=== PATIENT | male | born 1965 | race Caucasian/White ===

== ENCOUNTER 2020-06-06 10:23 | Outpatient (REF) | payer BC, SELFPAY | END 2020-06-06 10:24 | disposition home or self-care (01) | LOC: HO.LAB 10:23 | PROVIDERS: Visit Provider Nurse Practitioner Family | DX: Z20.828 Contact with and (suspected) exposure to other viral communicable diseases (principal); J32.9 Chronic sinusitis, unspecified; R42 Dizziness and giddiness | CPT/HCPCS: U0003 ==

== ENCOUNTER 2020-09-14 07:18 | Outpatient (REF) | payer BC, SELFPAY ==
[2020-09-14 07:57] LABS: Glucose Urine UA NEG (NEG); Leukocyte Esterase Urine NEG (NEG); Nitrite Urine NEG (NEG); Specific Gravity - Urine 1.025 (1.005-1.025); Urine Blood NEG (NEG); Urine Ketones NEG (NEG); Urine Protein NEG (NEG-TRACE)
[2020-09-14 07:59] LABS: Appearance Urine CLEAR; Color Urine YELLOW
[2020-09-14 07:59] LABS: MANUAL DIFF FLAG NO
[2020-09-14 08:08] LABS: RBC Urine 0 /HPF (0); WBC Urine 0 /HPF (0-4)
[2020-09-14 08:21] LABS: Estimated Average Glucose 123 mg/dL; Hemoglobin A1c % 5.9 %
[2020-09-14 08:26] LABS: Alanine Aminotransferase 24 U/L (0-40); Albumin Level 4.2 g/dL (3.5-5.0); Alkaline Phosphatase 49 U/L (39-117); Anion Gap 12 (12-20); Aspartate Amino Transferase 18 U/L (5-37); Bilirubin Total 1.3 mg/dL (0.0-1.0); Blood Urea Nitrogen 20 mg/dL (9-16); Calcium 8.9 mg/dL (8.4-10.2); Carbon Dioxide 32 mmol/L (22-29); Chloride 103 mmol/L (96-108); Cholesterol 159 mg/dL; Estimated Glomerular Filt Rate > 60; Glucose Random 100 mg/dL (60-115); HDL Cholesterol 50 mg/dL; LDL Cholesterol Calculated 92 mg/dl; Potassium 4.5 mmol/L (3.3-5.1); Sodium 142 mmol/L (135-145); Total Protein 6.6 g/dL (6.5-8.0); Triglycerides 89 mg/dL
[2020-09-14 08:28] LABS: Basophils Absolute Auto 0.1 X10*3/uL (0.0-0.2); Basophils Percent Auto 0.8 % (0-2); Eosinophils Absolute Auto 0.2 X10*3/uL (0.0-0.4); Eosinophils Percent Auto 2.6 % (0-4); Hematocrit 45.3 % (42-52); Hemoglobin 14.3 g/dl (14.0-18.0); Imm Gran Abs Auto 0.02 X10*3/uL (0.00-0.03); Imm Gran Pct Auto 0.3 % (0.0-0.4); Lymphocytes Absolute Auto 2.6 X10*3/uL (1.2-4.9); Lymphocytes Percent Auto 39.9 % (20-40); Mean Corpuscular HGB Conc 31.6 g/dl (31.0-36.0); Mean Corpuscular Hemoglobin 25.8 pg (27.0-33.0); Mean Corpuscular Volume 81.6 fL (80-98); Mean Platelet Volume 10.1 fL (9.4-12.4); Monocytes Absolute Auto 0.6 X10*3/uL (0.1-1.2); Neutrophils Percent Auto 47.4 % (45-73); Platelet Count 269 X10*3/uL (160-400); Red Blood Count 5.55 X10*6/uL (4.60-5.80); Red Cell Distribution Width 13.4 % (11.0-16.0); White Blood Count 6.4 X10*3/uL (4.8-10.8)
[2020-09-14 08:50] LABS: Free T4 (Free Thyroxine) 0.87 ng/dL (0.71-1.85); Prostate Specific Antigen Scr 1.17 ng/mL (<0.05-4.0); Thyroid Stimulating Hormone 1.86 uIU/mL (0.32-4.0); Vitamin D 25-OH Total 24.3 ng/mL (>30)
[2020-09-14 13:48] LABS: Folate 7.6 ng/mL (> or = 4.0); Vitamin B12 864 pg/mL (200-900)
[2020-09-20 10:46] LABS: Testosterone, Total 296 ng/dL (250-1100)
== END 2020-09-14 07:19 | disposition home or self-care (01) ==
LOC: HO.LAB 07:18
PROVIDERS: PCP Internal Medicine; Visit Provider Internal Medicine
DX: Z00.00 Encounter for general adult medical examination without abnormal findings (principal); E78.00 Pure hypercholesterolemia, unspecified; I10 Essential (primary) hypertension; R73.02 Impaired glucose tolerance (oral)
CPT/HCPCS: 36415; 80053; 80061; 81001; 82306; 82607; 82746; 83036; 84153; 84403; 84439; 84443; 85025

== ENCOUNTER 2020-10-30 08:34 | Outpatient (REF) | payer BC, SELFPAY ==
--- NOTE | ~2020-10-30 | US_ITS ---
EXAMINATION: US ABDOMEN LIMITED CLINICAL INFORMATION: Right upper quadrant pain. COMPARISON: Ultrasound abdomen 07/16/2011. TECHNIQUE: Real-time imaging of the right upper quadrant abdominal viscera. FINDINGS: PANCREAS: Normal. LIVER: Liver echotexture is increased probably representing fatty infiltration. There are focal hypoechoic areas adjacent to the gallbladder and in the periportal region, characteristic location of focal fatty sparing. No other focal hepatic lesion. Liver is normal in size and shape. There is no intrahepatic biliary duct dilatation seen. GALLBLADDER: Normal. The gallbladder is physiologically distended without evidence of stones, sludge, polyps, wall thickening or pericholecystic fluid. COMMON BILE DUCT: Normal in caliber measuring 0.28 cm in diameter. RIGHT KIDNEY: Normal. No hydronephrosis. No renal calculi or focal parenchymal lesions. The kidney measures 11.5 cm in maximum dimension. FREE FLUID: None. US/US abdomen limited IMPRESSION: Echogenic liver probably representing fatty infiltration otherwise unremarkable exam.
== END 2020-10-30 08:35 | disposition home or self-care (01) ==
LOC: HO.HMGCX 08:34
PROVIDERS: Visit Provider Internal Medicine
DX: R10.11 Right upper quadrant pain (principal)
CPT/HCPCS: 76705

== ENCOUNTER → 2021-01-08 15:46 | Outpatient (REF) | payer BC, SELFPAY | LOC: HO.SL 15:46 | PROVIDERS: PCP Internal Medicine; Visit Provider Internal Medicine | DX: G47.33 Obstructive sleep apnea (adult) (pediatric) (principal) | CPT/HCPCS: 95806 ==

== ENCOUNTER 2021-01-29 06:27 | Emergency (ER) | payer BC, SELFPAY ==
--- NOTE | 2021-01-29 | ECG_ITS ---
Test Reason : CP Blood Pressure : / mmHG Vent. Rate : 067 BPM Atrial Rate : 067 BPM P-R Int : 154 ms QRS Dur : 086 ms QT Int : 388 ms P-R-T Axes : 037 044 013 degrees QTc Int : 409 ms Normal sinus rhythm Normal ECG When compared with ECG of 15-MAR-2020 20:20, No significant changes seen Referred By: Generic ED Physician Electronically Signed By:MARY DAWN
--- NOTE | ~2021-01-29 | XR_ITS ---
EXAMINATION: XR CHEST CLINICAL INFORMATION: Left-sided chest pain COMPARISON: Chest radiographs 01/23/2019, 03/31/2013 TECHNIQUE: Portable upright AP view of the chest was obtained. FINDINGS: Patient slightly rotated. There is fine linear scar lingula left upper lobe similar to 2019. The lungs are otherwise clear. There is no pneumothorax, pleural reaction, airspace consolidation, or effusion. The heart is normal in size. The hilar and mediastinal contours are unremarkable. No visible acute bony abnormality. XR/XR chest 1V IMPRESSION: 1. Fine linear scar left lung is similar to 2019. 2. No pneumothorax, infiltrate, pleural reaction, or effusion.
[2021-01-29 07:05] VITALS: BP 133/83; PULSE 68; RESP 18; TEMP 36.4; O2SAT 96; BMI 39.0
--- NOTE | 2021-01-29 07:28 | ED_ITS ---
HPI - Chest Pain General Chief Complaint: Chest Pain Stated Complaint: chest pain, tingling sensation in arms,tightness Time Seen by Provider: 01/29/21 06:59 History of Present Illness HPI narrative: Patient comes emergency room complaining of 4 days of left-sided chest pain and mild tingling sensation on the left side of his chest. Patient states that he feels there is a lump under the left side of his chest. Patient states the pain is constant but intermittently gets worse. Patient denies diaphoresis, no nausea vomiting, no URI symptoms. Related Data Home Medications Medication Instructions Recorded Confirmed loratadine 10 mg tablet 10 mg PO DAILY 05/13/20 11/22/20 Previous Rx's Medication Instructions Recorded meclizine 25 mg tablet 25 mg PO TID PRN #20 tab 06/06/20 hydrochlorothiazide 12.5 mg tablet 12.5 mg PO DAILY #30 tab 09/06/20 lisinopril 40 mg tablet 40 mg PO DAILY #30 tab 09/06/20 amlodipine 10 mg tablet 10 mg PO DAILY #90 tab 09/10/20 hydralazine 25 mg tablet 25 mg PO TID 90 Days #270 tab 09/10/20 omeprazole 20 mg capsule,delayed 20 mg PO DAILY #90 cap 09/10/20 release hydroxyzine HCl 25 mg tablet 25 mg PO TID PRN #10 tab 01/29/21 Allergies Allergy/AdvReac Type Severity Reaction Status Date / Time bee pollen [BEE STINGS] Allergy Unknown UNKNOWN Unverified 04/04/20 11:21 Enviromental Allergy Unknown Uncoded 04/04/20 11:21 enviromental Allergy Unknown Uncoded 04/04/20 11:21 SEAFOOD Allergy Unknown NAUSEA & Uncoded 04/04/20 11:21 VOMITING Review of Systems Review of Systems: Constitutional : No Weight loss, No Fever, No Chills, No Night Sweats, No Fatigue, No Malaise ENT/Mouth : No Hearing loss, No Ear Pain, No Nasal Congestion, No Sinus Pain, No Hoarseness, No sore throat, No Rhinorrhea, No Swallowing Difficulty Eyes: No Eye Pain, No Swelling, No Redness, No Foreign Body, No Discharge, No Vi gary Changes Cardiovascular : Left-sided chest Pain, No SOB, No Dyspnea on Exertion, No Orthopnea, No Edema, No Palpitations Respiratory : No Cough, No Sputum, No Wheezing, No Smoke Exposure, No Dyspnea Gastrointestinal : No Nausea, No Vomiting, No Diarrhea, No Constipation, No abdominal Pain, No Hematochezia, No Melena Genitourinary : no irregular bleeding, No Dysuria, No Urinary Frequency, No H ematuria, No Urinary Incontinence, No Urgency, No Flank Pain, No Urinary Flow Changes, No Hesitancy Musculoskeletal : No joint pain, No Myalgias, No Joint Swelling Skin : No Skin Lesions, No rash Neuro : No Weakness, No Numbness, No Paresthesias, No Loss of Consciousness, No Dizziness, No Headache Psych : No Anxiety/Panic, No Depression, No SI/HI/AH/VH, No Social Issues, Heme/Lymph: No Bruising, No Bleeding,No Lymphadenopathy Endocrine : No Polyuria, No Polydipsia, No Temperature Intolerance [facility] Past Medical History Medical History GERD (gastroesophageal reflux disease) Hypertension Impaired glucose tolerance Obesity Obstructive sleep apnea Panic attacks Vitamin D deficiency Surgical History History of umbilical hernia repair Family History Family History (Updated 09/10/20 @ 16:47 by Carlos Enrique Trujillo MD) Father Stroke Hypertension Myocardial infarct Mother Hypertension Social History Social History (Updated 09/10/20 @ 16:47 by Carlos Enrique Trujillo MD) Alcohol intake: current Alcohol intake frequency: a few times a week Patient Tobacco Use Status: Never used Tobacco Use of substances other than those prescribed or required for medical reasons: No Advance Directives: Yes Advance Directives Information Provided: Yes Advance Directives on File: No Physical Exam Vital Signs: Vital Signs: Last Vital Signs Temp 97.5 F 01/29/21 07:05 Pulse 57 01/29/21 09:11 Resp 16 01/29/21 09:11 BP 124/76 01/29/21 09:11 Pulse Ox 97 01/29/21 09:11 Body Mass Index 39.0 Const: Other: Appearance: Alert. Oriented X3. No acute distress. Eyes: Pupils equal, round and reactive to light. ENT: Pharynx normal. Neck: Normal inspection. Neck supple. No lymph nodes noted. No crepitus CVS: Normal heart rate and rhythm. Pulses normal. Normal S1 and S2, reproducible chest pain on palpation Respiratory: No respiratory distress. Breath sounds normal. No Wheezing. No rales Abdomen: Soft and nontender. No rigidity. No distention. good BS x4 Skin: Skin warm and dry. Normal skin color. Normal skin turgor. Extremities: No lower extremity edema. No lower extremity edema. No Lacerations. No Rash Neuro: Oriented X 3. No motor deficit. No sensory deficit. Moving all extermities. No slurred speech. Course Course Course Narrative: At this time patient is asymptomatic. Patient states that he is tired and would like to have the day off from work. Patient's troponin negative, EKG within normal limits. Patient's pain likely musculoskeletal. I discussed with the patient that if he keeps having chest pain, he needs to follow up his his primary care physician and may need a cardiac stress test which he has never had. Prior to discharge, patient requesting medication to be sent to his medication for anxiety MDM - Chest Pain Lab Data Result diagrams: 01/29/21 07:51 01/29/21 08:31 Labs: Lab Results 01/29/21 01/29/21 01/29/21 Range/Units 07:51 07:51 08:31 WBC 3.9 L (4.8-10.8) X10*3/uL RBC 4.96 (4.60-5.80) X10*6/uL Hgb 13.1 L (14.0-18.0) g/dl Hct 39.8 L (42-52) % MCV 80.2 (80-98) fL MCH 26.4 L (27.0-33.0) pg MCHC 32.9 (31.0-36.0) g/dl RDW 13.4 (11.0-16.0) % Plt Count 242 (160-400) X10*3/uL MPV 10.2 (9.4-12.4) fL Immature Gran % (Auto) 0.5 H (0.0-0.4) % Neut % (Auto) 54.1 (45-73) % Lymph % (Auto) 33.1 (20-40) % [place] % (Auto) 9.2 (2-11) % Eos % (Auto) 2.3 (0-4) % Baso % (Auto) 0.8 (0-2) % Lymph # (Auto) 1.3 (1.2-4.9) X10*3/uL [place] # (Auto) 0.4 (0.1-1.2) X10*3/uL Eos # (Auto) 0.1 (0.0-0.4) X10*3/uL Baso # (Auto) 0.0 (0.0-0.2) X10*3/uL Abs Immat Gran (auto) 0.02 (0.00-0.03) X10*3/uL Absolute Neuts (auto) 2.1 (2.0-8.3) X10*3/uL Absolute Nucleated RBC 0.000 (0.0-0.012) X10*3/uL Nucleated RBC % (auto) 0.0 (0.0-0.2) /100WBC Sodium 139 (135-145) mmol/L Potassium 4.0 (3.3-5.1) mmol/L Chloride 106 (96-108) mmol/L Carbon Dioxide 26 (22-29) mmol/L Anion Gap 11 L (12-20) BUN 13 (9-16) mg/dL Creatinine 0.78 (0.5-1.4) mg/dL Estim Creat Clear Calc 125.8 Estimated GFR > 60 Random Glucose 98 (60-115) mg/dL Calcium 9.1 (8.4-10.2) mg/dL Total Bilirubin 1.1 H (0.0-1.0) mg/dL Direct Bilirubin 0.4 (0.0-0.5) mg/dL AST 21 (5-37) U/L ALT 25 (0-40) U/L Alkaline Phosphatase 55 (39-117) U/L Troponin I High Sens < 3.5 (<3.5-35.0) ng/L Total Protein 6.8 (6.5-8.0) g/dL Albumin 4.3 (3.5-5.0) g/dL ECG Data ECG #1: Attestation: I personally reviewed and interpreted this ECG as follows: (Sinus rhythm, heart rate 67, 97 depression or elevation, nonspecific T-wave inversion in lead 3, QTC 409) Interpretation: FINDINGS: Patient slightly rotated. There is fine linear scar lingula left upper lobe similar to 2019. The lungs are otherwise clear. There is no pneumothorax, pleural reaction, airspace consolidation, or effusion. The heart is normal in size. The hilar and mediastinal contours are unremarkable. No visible acute bony abnormality. XR/XR chest 1V IMPRESSION: ? 1. Fine linear scar left lung is similar to 2019. 2. No pneumothorax, infiltrate, pleural reaction, or effusion. Scores Heart Score History: -0- slightly suspicious ECG: -0- normal Age: -1- >45 - <65 Risk factory: -1- 1 or 2 risk factors Troponin: -0- < or = normal limit Score: 2 Risk: 1.7% Discharge Plan Discharge Clinical Impression: Atypical chest pain, Anxiety Patient Disposition: Home, Self-Care Instructions: Chest Pain (ED) Additional Instructions: Please follow-up with your primary care physician tomorrow. If you have any worsening or new symptoms, please return to the emergency room or call 911 Prescriptions: New hydroxyzine HCl 25 mg tablet 25 mg PO TID PRN (Reason: nausea and vomiting) Qty: 10 RF: 0 No Action loratadine 10 mg tablet 10 mg PO DAILY RF: 0 meclizine 25 mg tablet 25 mg PO TID PRN (Reason: dizziness) Qty: 20 RF: 0 amlodipine 10 mg tablet 10 mg PO DAILY Qty: 90 RF: 1 hydralazine 25 mg tablet 25 mg PO TID 90 Days Qty: 270 RF: 1 omeprazole 20 mg capsule,delayed release(DR/EC) 20 mg PO DAILY Qty: 90 RF: 1 lisinopril 40 mg tablet 40 mg PO DAILY Qty: 30 RF: 3 hydrochlorothiazide 12.5 mg tablet 12.5 mg PO DAILY Qty: 30 RF: 2 Stand Alone Forms: Work/School Release
[2021-01-29 07:33] VITALS: PULSE 64; PULSE 65
[2021-01-29 07:36] VITALS: BP 135/75; PULSE 64; RESP 17; O2SAT 98
[2021-01-29 07:56] LABS: Basophils Percent Auto 0.8 % (0-2); Eosinophils Absolute Auto 0.1 X10*3/uL (0.0-0.4); Eosinophils Percent Auto 2.3 % (0-4); Hematocrit 39.8 % (42-52); Hemoglobin 13.1 g/dl (14.0-18.0); Imm Gran Abs Auto 0.02 X10*3/uL (0.00-0.03); Imm Gran Pct Auto 0.5 % (0.0-0.4); Lymphocytes Absolute Auto 1.3 X10*3/uL (1.2-4.9); Lymphocytes Percent Auto 33.1 % (20-40); MANUAL DIFF FLAG NO; Mean Corpuscular HGB Conc 32.9 g/dl (31.0-36.0); Mean Corpuscular Hemoglobin 26.4 pg (27.0-33.0); Mean Corpuscular Volume 80.2 fL (80-98); Mean Platelet Volume 10.2 fL (9.4-12.4); Monocytes Absolute Auto 0.4 X10*3/uL (0.1-1.2); Monocytes Percent Auto 9.2 % (2-11); Neutrophils Absolute Auto 2.1 X10*3/uL (2.0-8.3); Neutrophils Percent Auto 54.1 % (45-73); Platelet Count 242 X10*3/uL (160-400); Red Blood Count 4.96 X10*6/uL (4.60-5.80); Red Cell Distribution Width 13.4 % (11.0-16.0); White Blood Count 3.9 X10*3/uL (4.8-10.8)
[2021-01-29] MEDS: Aspirin Enteric Coated 325 MG TABLET.DR PO (07:56)
[2021-01-29 08:00] VITALS: BP 123/74; PULSE 56; RESP 23; O2SAT 97
[2021-01-29 08:27] LABS: Troponin-I High Sensitivity < 3.5 ng/L (<3.5-35.0)
[2021-01-29 09:11] VITALS: BP 124/76; PULSE 57; RESP 16; O2SAT 97
--- NOTE | 2021-01-29 09:12 | PC.NURSE ---
Patient is sitting up in bed in no acute distress.
[2021-01-29 09:18] LABS: Alanine Aminotransferase 25 U/L (0-40); Albumin Level 4.3 g/dL (3.5-5.0); Alkaline Phosphatase 55 U/L (39-117); Anion Gap 11 (12-20); Aspartate Amino Transferase 21 U/L (5-37); Bilirubin Direct 0.4 mg/dL (0.0-0.5); Bilirubin Total 1.1 mg/dL (0.0-1.0); Blood Urea Nitrogen 13 mg/dL (9-16); Calcium 9.1 mg/dL (8.4-10.2); Carbon Dioxide 26 mmol/L (22-29); Chloride 106 mmol/L (96-108); Creatinine Clr Calc Pharmacy 125.8; Estimated Glomerular Filt Rate > 60; Glucose Random 98 mg/dL (60-115); Sodium 139 mmol/L (135-145); Total Protein 6.8 g/dL (6.5-8.0)
[2021-01-29 10:00] VITALS: BP 143/84; PULSE 57; RESP 13; O2SAT 98
== END 2021-01-29 10:04 | disposition home or self-care (01) ==
PROVIDERS: Emergency Provider Emergency Medicine; PCP Internal Medicine
DX: R07.89 Other chest pain (principal); F41.9 Anxiety disorder, unspecified; I10 Essential (primary) hypertension; Z79.899 Other long term (current) drug therapy
CPT/HCPCS: 36415; 71045; 80048; 80076; 84484; 85025; 93005; 99284; 99285

== ENCOUNTER 2021-07-07 16:32 | Outpatient (REF) | payer BC, SELFPAY | END 2021-07-07 16:33 | disposition home or self-care (01) | LOC: HO.LNP 16:32 | PROVIDERS: Visit Provider Physician Assistant | DX: R76.8 Other specified abnormal immunological findings in serum (principal); M79.10 Myalgia, unspecified site; Z20.822 Contact with and (suspected) exposure to COVID-19 | CPT/HCPCS: U0003; U0005 ==

== ENCOUNTER 2021-07-16 18:51 | Emergency (ER) | payer BC, SELFPAY ==
--- NOTE | ~2021-07-16 | XR_ITS ---
EXAMINATION: XR CHEST CLINICAL INFORMATION: Shortness of breath COMPARISON: 01/29/2021 TECHNIQUE: Frontal view of the chest was obtained. FINDINGS: The heart and pulmonary vessels appear normal. Again seen is linear atelectasis in the left midlung. No acute infiltrates, effusions or lung masses are seen. XR/XR chest 1V IMPRESSION: No acute intrathoracic disease. Stable linear scarring left mid lung.
[2021-07-16 19:20] VITALS: BP 185/99; PULSE 75; RESP 18; TEMP 36.7; O2SAT 95; BMI 40.0
[2021-07-16 21:53] VITALS: BP 181/109; PULSE 69; RESP 20; TEMP 36.8; O2SAT 96
--- NOTE | 2021-07-16 22:05 | ED_ITS ---
HPI - URI/Sore Throat General Chief Complaint: Upper Respiratory Symptoms Stated Complaint: + covid 1/3 now asthma is bothering him Time Seen by Provider: 07/16/21 22:05 Source: patient Mode of arrival: ambulatory Limitations: no limitations History of Present Illness HPI Narrative: Patient is COVID positive for 9 days. Now he is short of breath, coughing. Patient is not vaccinated. MD elicited complaint: fever, cough and sore throat Onset (ago): day(s) Consistency: constant Severity: mild Relieving factors: nothing Associated symptoms: fever, cough and chest pain Related Data Previous Rx's Medication Instructions Recorded AUTO CPAP \6-20 cm H20 Humidified #1 ea 02/07/21 AIR amlodipine 10 mg tablet 10 mg PO DAILY #90 tab 02/13/21 hydralazine 25 mg tablet 25 mg PO TID 90 Days #270 tab 02/13/21 hydrochlorothiazide 12.5 mg tablet 12.5 mg PO DAILY 90 Days #90 tab 02/13/21 hydroxyzine HCl 25 mg tablet 25 mg PO TID PRN #10 tab 02/13/21 lisinopril 40 mg tablet 40 mg PO DAILY 90 Days #90 tab 02/13/21 loratadine 10 mg tablet 10 mg PO DAILY 90 Days #90 tab 02/13/21 omeprazole 20 mg capsule,delayed 20 mg PO DAILY #90 cap 02/13/21 release meclizine 25 mg tablet 25 mg PO TID PRN #20 tab 03/11/21 albuterol sulfate 90 mcg/actuation 4 inh INHALATION QID #8.5 g 07/16/21 aerosol inhaler prednisone 20 mg tablet 60 mg PO DAILY #12 tab 07/16/21 Allergies Allergy/AdvReac Type Severity Reaction Status Date / Time bee pollen [BEE STINGS] Allergy Unknown UNKNOWN Verified 07/16/21 19:20 Enviromental Allergy Unknown Unknown Uncoded 01/29/21 14:34 enviromental Allergy Unknown Unknown Uncoded 01/29/21 14:34 SEAFOOD Allergy Unknown NAUSEA & Uncoded 04/04/20 11:21 VOMITING Review of Systems Constitutional: Constitutional: Reports no additional constitutional complaints Eyes: Eyes: Reports no additional eye complaints ENT: Denies dizziness Cardiovascular: Cardiovascular: Reports no additional cardiovascular complaints Respiratory: Respiratory: Reports as per HPI Gastrointestinal: Gastrointestinal: Reports no additional gastrointestinal complaints Musculoskeletal: Musculoskeletal: Reports no additional musculoskeletal complaints Integumentary/Breasts: Skin/Breast: Denies rash Neurologic: Reports system reviewed and no additional complaints, except as documented, Denies dizziness and Denies Sensory deficit (Neuro) Psychiatric: Psychiatric: Denies anxiety [facility] Past Medical History Medical History Asthma COVID-19 GERD (gastroesophageal reflux disease) Hypertension Impaired glucose tolerance Obesity Obstructive sleep apnea Panic attacks Vitamin D deficiency Surgical History History of umbilical hernia repair Family History Family History Father Stroke Hypertension Myocardial infarct Mother Hypertension Social History Social History Alcohol intake: current Alcohol intake frequency: a few times a week Patient Tobacco Use Status: Never used Tobacco Advance Directives: No Advance Directives Information Provided: No Physical Exam Vital Signs: Vital Signs: Last Vital Signs Temp 98.2 F 07/16/21 21:53 Pulse 96 07/16/21 22:36 Resp 18 07/16/21 22:36 BP 181/109 H 07/16/21 21:53 Pulse Ox 96 07/16/21 21:53 BMI result Body Mass Index 40.0 Const: General: healthy appearing Nutritional Appearance: average body habitus Orientation/consciousness: oriented to person and patient oriented x3 Limitations: no limitations HENMT: Head: Yes normal to inspection Ears: external ears normal General nose exam: Normal external nose present Mouth: Normal oral and palatal mucosa present and oropharynx normal Throat: Yes posterior oropharynx normal Eyes: General: appearance normal, both eyes and all related structures Neck: Other: supple Neck: Yes normal visual inspection Chest: Chest palpation & inspection: normal inspection of the chest Resp: Other: diffuse wheezing Cardio: Jugular venous distension: no JVD Rate: regular rate Rhythm: regular rhythm Heart sounds: S1 normal heart sound present and S2 normal heart sound present GI: Inspection: Yes normal to inspection Palpation (GI): Soft to palpation, nontender and No hepatosplenomegaly present Auscultation: normal bowel sounds : General: Yes no CVA tenderness Back/Spine/Pelvis: Back: no CVA tenderness Skin: General skin exam: no rashes or lesions noted Neuro: General: oriented to person and patient oriented x3 Cranial nerves: Yes CN's II-XII intact bilaterally Motor exam (neuro): 5/5 motor strength present throughout Sensory Exam: No Sensory deficit (Neuro) Extrem: General: Yes normal to inspection Psych: Appearance: grossly normal MDM - URI/Sore Throat Imaging Data Chest x-ray: Radiologist's impression: FINDINGS: The heart and pulmonary vessels appear normal. Again seen is linear atelectasis in the left midlung. No acute infiltrates, effusions or lung masses are seen. XR/XR chest 1V IMPRESSION: No acute intrathoracic disease. Stable linear scarring left mid lung. ? Discharge Plan Discharge Clinical Impression: COVID-19 Asthma Qualifiers: Asthma severity: mild Asthma persistence: persistent Asthma complication type: with acute exacerbation Qualified Code(s): J45.31 - Mild persistent asthma with (acute) exacerbation Patient Disposition: Home, Self-Care Instructions: Asthma (ED), COVID-19 (Coronavirus Disease 2019) (ED) Prescriptions: New prednisone 20 mg tablet 60 mg PO DAILY Qty: 12 RF: 0 albuterol sulfate 90 mcg/actuation HFA aerosol inhaler 4 inh inhalation QID Qty: 8.5 RF: 0 No Action (DME) AUTO CPAP \6-20 cm H20 Humidified AIR See Rx Instructions .Route .MEDSUPPLY Qty: 1 RF: 0 amlodipine 10 mg tablet 10 mg PO DAILY Qty: 90 RF: 1 hydralazine 25 mg tablet 25 mg PO TID 90 Days Qty: 270 RF: 1 hydrochlorothiazide 12.5 mg tablet 12.5 mg PO DAILY 90 Days Qty: 90 RF: 1 hydroxyzine HCl 25 mg tablet 25 mg PO TID PRN (Reason: nausea and vomiting) Qty: 10 RF: 0 lisinopril 40 mg tablet 40 mg PO DAILY 90 Days Qty: 90 RF: 1 loratadine 10 mg tablet 10 mg PO DAILY 90 Days Qty: 90 RF: 2 omeprazole 20 mg capsule,delayed release(DR/EC) 20 mg PO DAILY Qty: 90 RF: 1 meclizine 25 mg tablet 25 mg PO TID PRN (Reason: dizziness) Qty: 20 RF: 0
[2021-07-16] MEDS: Albuterol Sulfate 90 MCG 8 GM INHALER 4 PUFF INHALE (22:32)
[2021-07-16 22:36] VITALS: PULSE 96; RESP 18
[2021-07-16] MEDS: predniSONE 20 MG TABLET 60 MG PO (22:48)
== END 2021-07-16 23:05 | disposition home or self-care (01) ==
PROVIDERS: Emergency Provider Emergency Medicine; PCP Internal Medicine
DX: U07.1 COVID-19 (principal); J45.31 Mild persistent asthma with (acute) exacerbation; I10 Essential (primary) hypertension; Z79.899 Other long term (current) drug therapy
CPT/HCPCS: 71045; 94640; 99284

== ENCOUNTER 2021-09-13 07:33 | Outpatient (REF) | payer BC, SELFPAY ==
[2021-09-13 07:48] LABS: MANUAL DIFF FLAG NO
[2021-09-13 08:07] LABS: Appearance Urine CLEAR; Color Urine YELLOW; Glucose Urine UA NEG (NEG); Leukocyte Esterase Urine NEG (NEG); Nitrite Urine NEG (NEG); PH 6.5 (5.0-8.0); Specific Gravity - Urine 1.025 (1.005-1.025); Urine Blood NEG (NEG); Urine Ketones NEG (NEG); Urine Protein NEG (NEG-TRACE)
[2021-09-13 08:11] LABS: Basophils Percent Auto 0.8 % (0-2); Eosinophils Absolute Auto 0.1 X10*3/uL (0.0-0.4); Eosinophils Percent Auto 2.6 % (0-4); Hemoglobin 13.7 g/dl (14.0-18.0); Imm Gran Abs Auto 0.01 X10*3/uL (0.00-0.03); Imm Gran Pct Auto 0.3 % (0.0-0.4); Lymphocytes Absolute Auto 1.4 X10*3/uL (1.2-4.9); Lymphocytes Percent Auto 34.7 % (20-40); Mean Corpuscular HGB Conc 31.9 g/dl (31.0-36.0); Mean Corpuscular Hemoglobin 25.8 pg (27.0-33.0); Mean Corpuscular Volume 80.8 fL (80.0-98.0); Mean Platelet Volume 10.3 fL (9.4-12.4); Monocytes Absolute Auto 0.3 X10*3/uL (0.1-1.2); Monocytes Percent Auto 8.7 % (2-11); Neutrophils Absolute Auto 2.1 x10*3/uL (2.0-8.3); Neutrophils Percent Auto 52.9 % (45-73); Platelet Count 255 X10*3/uL (160-400); Red Blood Count 5.32 X10*6/uL (4.60-5.80); Red Cell Distribution Width 13.3 % (11.0-16.0); White Blood Count 3.9 X10*3/uL (4.8-10.8)
[2021-09-13 08:27] LABS: Estimated Average Glucose 114 mg/dL; Hemoglobin A1c % 5.6 %
[2021-09-13 08:28] LABS: Alanine Aminotransferase 31 U/L (0-40); Albumin Level 4.5 g/dL (3.5-5.0); Alkaline Phosphatase 57 U/L (39-117); Anion Gap 11 (12-20); Aspartate Amino Transferase 25 U/L (5-37); Bilirubin Total 1.3 mg/dL (0.0-1.0); Blood Urea Nitrogen 18 mg/dL (9-16); Calcium 9.7 mg/dL (8.4-10.2); Carbon Dioxide 27 mmol/L (22-29); Chloride 106 mmol/L (96-108); Cholesterol 157 mg/dL; Estimated Glomerular Filt Rate > 60; Glucose Fasting 97 mg/dL (60-99); HDL Cholesterol 45 mg/dL; LDL Cholesterol Calculated 100 mg/dl; Potassium 4.2 mmol/L (3.3-5.1); Sodium 140 mmol/L (135-145); Total Protein 7.3 g/dL (6.5-8.0); Triglycerides 62 mg/dL
[2021-09-13 08:52] LABS: TSH reflex Free T4 1.62 uIU/mL (0.32-4.0)
[2021-09-13 09:21] LABS: Prostate Specific Antigen Scr 1.77 ng/mL (<0.05-4.0)
[2021-09-18 16:41] LABS: Testosterone, Free 67.3 pg/mL (35.0-155.0); Testosterone, Total 356 ng/dL (250-1100)
[2021-09-19 13:32] LABS: Vitamin D 25-OH, D2 <4 ng/mL; Vitamin D 25-OH, D3 35 ng/mL; Vitamin D 25-OH, Total 35 ng/mL (30-100)
== END 2021-09-13 07:34 | disposition home or self-care (01) ==
LOC: HO.LAB 07:33
PROVIDERS: PCP Internal Medicine; Visit Provider Nurse Practitioner Family
DX: G47.00 Insomnia, unspecified (principal); R53.83 Other fatigue; I10 Essential (primary) hypertension; E55.9 Vitamin D deficiency, unspecified; E78.00 Pure hypercholesterolemia, unspecified; E11.9 Type 2 diabetes mellitus without complications; Z12.5 Encounter for screening for malignant neoplasm of prostate
CPT/HCPCS: 36415; 80053; 80061; 81003; 82306; 83036; 84153; 84402; 84403; 84443; 85025

== ENCOUNTER → 2021-09-15 13:17 | Outpatient (REF) | payer BC, SELFPAY ==
--- NOTE | 2021-09-15 13:21 | ECG_ITS ---
Test Reason : HTN Blood Pressure : / mmHG Vent. Rate : 059 BPM Atrial Rate : 059 BPM P-R Int : 166 ms QRS Dur : 088 ms QT Int : 400 ms P-R-T Axes : 062 061 013 degrees QTc Int : 396 ms Sinus bradycardia Otherwise normal ECG When compared with ECG of 29-JAN-2021 06:35, No significant change was found Referred By: Felicia Carbone Electronically Signed By:MARY DAWN
== END ==
LOC: HO.CARD 13:17
PROVIDERS: PCP Internal Medicine; Visit Provider Nurse Practitioner Family
DX: I10 Essential (primary) hypertension (principal)
CPT/HCPCS: 93005

== ENCOUNTER 2021-09-24 14:21 | Outpatient (REF) | payer BC, SELFPAY ==
--- NOTE | 2021-09-25 10:21 | MHC.AU.ANO ---
Adult Audiological Evaluation Date of Visit: 09/24/21 Principal Law Clerk Used: Not Applicable Reason for Appointment: Audiologic evaluation due to fluctuating but increasing tinnitus in both ears. Tyson reports he has perceived the tinnitus intermittently for approximately 5 years; however, it is progressing. It does not interfere with his daily function. Tyson also reports he experiences intermittent but significant dizziness which seems to occur when he has bothersome sinus/congestion problems. Has hearing been tested previously?: Yes Previous Hearing Test Results: Work [employer] Screening in 2017. Results are not available for review. Hearing Handicap Inventory: HHIE SCORE: 12 Based on HHIE score, patient has: Mild to moderate perceived hearing handicap Ear History: Recent Ear Pain: Both Ears Bothersome Tinnitus/Ringing/Noises in Ears: Both Ears Ear used on the phone: Right Ear History of occupational noise exposure?: Yes 22 years with intermittent use of hearing protection. History: No Medical History: Medical History: High Blood Pressure Allergies: Seafood, Bee, Peanut, and environmental Medication List: Amlodipine, Lisinopril, Hydralazine, Vitamin D3, Magnesium, Vitamin C, Zinc, Garlic Extract Otoscopy: Right Ear: Unremarkable Left Ear: Unremarkable Tympanometry: Tympanometry performed due to: To assess integrity of the middle ear system Right Ear: Reduced Middle Ear Compliance (Type As) Left Ear: Reduced Middle Ear Compliance (Type As) Otoacoustic Emissions Frequency Range Used: 1.6-8 kHz Right Ear Results: Present 1600 and 2000 Hz, Absent 7090-2399 Hz. Analysis: Present emissions suggest normal cochlear function Reduced/Absent emissions suggest cochlear dysfunction Left Ear Results: Present 1600 and 2000 Hz, Absent 3872-3535 Hz. Analysis: Present emissions suggest normal cochlear function Reduced/Absent emissions suggest cochlear dysfunction Hearing Evaluation: Transducer(s) Used: Insert Earphones Bone Conduction Method: Conventional Audiometry Stimuli Used: Pure Tones Right Ear: Description of Hearing: Normal hearing thresholds 250-1000 Hz, sloping to a moderately-severe high frequency sensorineural hearing loss. Left Ear: Description of Hearing: Normal hearing thresholds 250-1000 Hz, sloping to a moderately-severe high frequency sensorineural hearing loss. Thresholds at 2000 and 3000 Hz are 10 dB poorer than the right ear. Speech Recognition Threshold (SRT): Method Used: Monitored Live Voice Stimuli Used: Spondee Words Right Ear: 15 dB HL Left Ear: 20 dB HL Word Discrimination: Method: Recorded Lists Word Lists Used: NU-6 Right Ear: 92% at 55 dB HL Left Ear: 92% at 60 dB HL Interpretation of Results: Discussed the various theories of tinnitus and its relation to Tyson's hearing loss/cochlear dysfunction in the high frequencies, fluctuating congestion, high blood pressure, and other emotional stressors. Also discussed possible trial with hearing aids for the high frequency hearing loss which may also decrease the perception of the tinnitus while being worn. Recommendations: Referral to Ear, Nose, and Throat is recommended due to the bothersome sinus/congestion which increases Tyson's symptoms of dizziness and tinnitus. Hearing protection should be used when around loud noise. Audiological re-evaluation in one year. Will send a reminder card. Diagnosis: Primary Diagnosis: H93.13 Tinnitus, Bilateral Secondary Diagnosis: H90.3 Bilateral Sensorineural Hearing Loss Services Performed: Comprehensive Audiological Evaluation (CPT 30886) Diagnostic Otoacoustic Emissions (CPT 36318, 26+TC) Tympanometry (CPT 72658) Signature: Provider: Jassi Harris, [facility]
== END 2021-09-24 14:22 | disposition home or self-care (01) ==
LOC: HO.SH 14:21
PROVIDERS: Visit Provider Nurse Practitioner Family
DX: Z01.118 Encounter for examination of ears and hearing with other abnormal findings (principal); H90.3 Sensorineural hearing loss, bilateral; H93.13 Tinnitus, bilateral
CPT/HCPCS: 92557; 92567; 92588

== ENCOUNTER 2021-10-02 08:28 | Emergency (ER) | payer BC, SELFPAY ==
--- NOTE | ~2021-10-02 | US_ITS ---
EXAMINATION: US VENOUS ULTRASOUND WITH DOPPLER LOWER EXTREMITY, LEFT CLINICAL INFORMATION: Pain. COMPARISON: None TECHNIQUE: Ultrasound of the deep veins is performed from the hip to the calf with compression sonography and color and pulse Doppler assessment. Spectral analysis with color-flow imaging is performed. FINDINGS: There is normal venous compression and respiratory variation and augmented flow. The visualized common femoral vein, superficial femoral vein, profunda femoral vein, popliteal vein, and the trifurcation region shows no evidence of deep venous thrombosis. There is no significant popliteal fossa cyst. If the patient's symptoms persist, followup ultrasound in 5 days 7 days might be of value to exclude proximal propagation from a non-visualized calf vein. US/US venous duplex LE LT IMPRESSION: No DVT demonstrated in the left lower extremity.
--- NOTE | ~2021-10-02 | XR_ITS ---
EXAMINATION: XR ANKLE, LEFT CLINICAL INFORMATION: Left ankle pain without injury COMPARISON: None TECHNIQUE: AP, lateral, and mortise views of the left ankle. FINDINGS: The bones and soft tissues are normal. No fracture. Alignment is anatomic. Joint spaces are maintained. There is plantar calcaneal spur No joint effusion. XR/XR ankle LT min 3V IMPRESSION: Normal left ankle. Plantar calcaneal spur
[2021-10-02 08:33] VITALS: BP 155/86; PULSE 68; RESP 18; TEMP 36.2; O2SAT 96
--- NOTE | 2021-10-02 09:01 | ED_ITS ---
HPI - General Adult General Chief complaint: General Medical Stated complaint: L ankle pain/abd pain Time Seen by Provider: 10/02/21 08:38 Source: patient Limitations: no limitations History of Present Illness HPI narrative: Patient presents to the ER complaining of left ankle pain. Patient states he felt increasing pain when he walks. Patient states he is on his feet a lot. Patient states he has a family history of arthritis but denies any history of gout. Patient states he has a history of high blood pressure which he takes medications for. Patient states he also recently had a dental extraction in the left side of his mouth. Patient currently on Motrin for that pain at this time. Patient states at times he has had some sharp left lower quadrant abdominal pain. Patient is without nausea vomiting diarrhea fever chills. Symptoms mild to moderate. No other complaints at this time Related Data Previous Rx's Medication Instructions Recorded AUTO CPAP \6-20 cm H20 Humidified #1 ea 02/07/21 AIR amlodipine 10 mg tablet 10 mg PO DAILY #90 tab 02/13/21 hydralazine 25 mg tablet 25 mg PO TID 90 Days #270 tab 02/13/21 hydrochlorothiazide 12.5 mg tablet 12.5 mg PO DAILY 90 Days #90 tab 02/13/21 lisinopril 40 mg tablet 40 mg PO DAILY 90 Days #90 tab 02/13/21 loratadine 10 mg tablet 10 mg PO DAILY 90 Days #90 tab 02/13/21 albuterol sulfate 90 mcg/actuation 4 inh INHALATION QID #8.5 g 07/16/21 aerosol inhaler acetaminophen 500 mg tablet 500 - 1,000 mg PO Q6H PRN #30 tab 09/12/21 amoxicillin 875 mg tablet 875 mg PO BID #14 tab 09/12/21 naproxen 500 mg tablet 500 mg PO BID PRN #20 tab 09/12/21 tramadol 50 mg tablet 50 mg PO BID PRN #7 tab 10/02/21 Allergies Allergy/AdvReac Type Severity Reaction Status Date / Time bee pollen [BEE STINGS] Allergy Unknown UNKNOWN Verified 09/12/21 14:15 Enviromental Allergy Unknown Unknown Uncoded 09/12/21 14:15 enviromental Allergy Unknown Unknown Uncoded 09/12/21 14:15 SEAFOOD Allergy Unknown NAUSEA & Uncoded 09/12/21 14:15 VOMITING Review of Systems Constitutional: Constitutional: Denies body ache(s), Denies chills, Denies fatigue, Denies fever(s) and Denies headache(s) ENT: Denies headache(s) and Denies sore throat Cardiovascular: Cardiovascular: Denies chest pain, Denies Epigastric Pain and Denies dyspnea Respiratory: Respiratory: Denies cough and Denies dyspnea Gastrointestinal: Gastrointestinal: Reports abdominal pain, Denies diarrhea, Denies nausea and Denies vomiting Genitourinary: Genitourinary: Reports no additional male genitourinary complaints Musculoskeletal: Comments: Left ankle leg pain Neurologic: Denies headache(s) Endocrine: Endocrine: Denies fatigue PMFSH Past Medical History Medical History Asthma COVID-19 GERD (gastroesophageal reflux disease) Hypertension Impaired glucose tolerance Obesity Obstructive sleep apnea Panic attacks Vitamin D deficiency Surgical History History of umbilical hernia repair Family History Family History (Updated 09/12/21 @ 13:55 by MERLY Saleh) Father Stroke Hypertension Myocardial infarct Mother Hypertension Social History Social History (Updated 09/12/21 @ 13:55 by MERLY Saleh) Housing: House Alcohol intake: current Alcohol intake frequency: a few times a week Patient Tobacco Use Status: Never used Tobacco e-Cigarette/Vaping Use: Never Used Second Hand Smoke Exposure: No Advance Directives: No Advance Directives Information Provided: Yes service: No Current occupational status: employed Current occupation: [employer] Cognitive needs: No Hearing needs: No Vision needs: No Physical Exam ED Vital Signs: Vital Signs - 24 hr 10/02/21 08:33 10/02/21 09:41 Temperature 97.1 F 97.1 F Pulse Rate 68 18 L Respiratory Rate 18 18 Blood Pressure 155/86 H 155/86 H Pulse Oximetry 96 96 BMI result Body Mass Index 38.0 vital signs have been reviewed as normal and appeared to be correct. Blood pressure normal. Heart rate normal. Respiration rate normal. Temperature normal. Oxygen saturation normal. Appearance: Alert. Oriented X3. No acute distress. Head: Normal external exam. Normocephalic. Atraumatic. Eyes: PERRLA. EOMI. Conjunctiva and sclera normal. Eyelids normal. ENT: Pharynx normal. Uvula midline. Moist mucous membranes. Recent oral extraction no sign of abscess erythema at the gumline. Neck: Soft full range of motion CVS: Heart regular rate and rhythm no murmurs and rubs Respiratory: Breath sounds are clear to auscultation bilaterally. No accessory muscle use noted. Abdomen: Abdomen soft no rebound or guarding no palpable masses some slight tenderness in left lower quadrant pain. Pot no bowel sounds. Back: Full range of motion noted. Skin: Skin warm and dry. Normal skin color. Normal skin turgor. No rashes/lesions/lacerations noted. Extremities: Lateral medial malleolus minimally tender on the left ankle no erythema induration or lymphangitis noted. Positive pulses positive sensation and pain increases with range of motion of left ankle. Positive tenderness into the left calf Neuro: Oriented X 3. No motor deficit. No sensory deficit. Reflexes normal. Course Course Course Narrative: Left ankle arthritis Gouty arthritis Left leg DVT Left lower quadrant abdominal pain Diverticulitis less likely 09:07 Patient has multiple complaints that do not seem to all relate to each other. Will get an evaluation of the left ankle and left calf to rule out DVT underlying arthritis. Low suspicion for diverticulitis is abdomen is very soft without rebound or guarding. Patient has been recently taking Motrin possible GI upset. Although the patient is an have any nausea vomiting or diarrhea. Will check CBC CMP at this time. 09:35 Patient has no signs of an elevated white count at this time very low suspicion for diverticulitis abdomen remained soft at this time. Left ankle x-ray shows a calcaneal spur which may be contributing to his pain at this time. Medical Decision Making Lab Data Result diagrams: 10/02/21 09:20 10/02/21 09:20 Labs: Lab Results 10/02/21 10/02/21 Range/Units 09:20 09:20 WBC 4.2 L (4.8-10.8) X10*3/uL RBC 4.87 (4.60-5.80) X10*6/uL Hgb 12.5 L (14.0-18.0) g/dl Hct 38.9 L (42.0-52.0) % MCV 79.9 L (80.0-98.0) fL MCH 25.7 L (27.0-33.0) pg MCHC 32.1 (31.0-36.0) g/dl RDW 13.2 (11.0-16.0) % Plt Count 247 (160-400) X10*3/uL MPV 9.9 (9.4-12.4) fL Immature Gran % (Auto) 0.2 (0.0-0.4) % Neut % (Auto) 55.1 (45-73) % Lymph % (Auto) 33.4 (20-40) % [place] % (Auto) 7.9 (2-11) % Eos % (Auto) 2.9 (0-4) % Baso % (Auto) 0.5 (0-2) % Lymph # (Auto) 1.4 (1.2-4.9) X10*3/uL [place] # (Auto) 0.3 (0.1-1.2) X10*3/uL Eos # (Auto) 0.1 (0.0-0.4) X10*3/uL Baso # (Auto) 0.0 (0.0-0.2) X10*3/uL Abs Immat Gran (auto) 0.01 (0.00-0.03) X10*3/uL Absolute Neuts (auto) 2.3 (2.0-8.3) x10*3/uL Absolute Nucleated RBC 0.000 (0.0-0.012) X10*3/uL Nucleated RBC % (auto) 0.0 (0.0-0.2) /100WBC Sodium 140 (135-145) mmol/L Potassium 4.3 (3.3-5.1) mmol/L Chloride 107 (96-108) mmol/L Carbon Dioxide 26 (22-29) mmol/L Anion Gap 11 L (12-20) BUN 14 (9-16) mg/dL Creatinine 0.87 (0.5-1.4) mg/dL Estim Creat Clear Calc TNP Estimated GFR > 60 Random Glucose 96 (60-115) mg/dL Calcium 8.9 D (8.4-10.2) mg/dL Total Bilirubin 0.8 (0.0-1.0) mg/dL AST 23 (5-37) U/L ALT 34 (0-40) U/L Alkaline Phosphatase 50 (39-117) U/L Total Protein 6.7 (6.5-8.0) g/dL Albumin 4.2 (3.5-5.0) g/dL Imaging Data ankle: Radiologist's impression: [address] [address] XRay Report Signed Patient: Tyson Artis MR#: [id number] : 1965 Acct:[id number] Age/Sex: 56 / M ADM Date: 10/02/21 Loc: HO.ED Attending Dr: Ordering Physician: Oren Jarrell Date of Service: 10/02/21 Procedure(s): XR ankle LT min 3V Accession Number(s): [id number] cc: Oren Jarrell ~ EXAMINATION: XR ANKLE, LEFT CLINICAL INFORMATION: Left ankle pain without injury? COMPARISON: None? TECHNIQUE: AP, lateral, and mortise views of the left ankle. FINDINGS: The bones and soft tissues are normal. No fracture. Alignment is anatomic. Joint spaces are maintained. There is plantar calcaneal spur No joint effusion.? XR/XR ankle LT min 3V IMPRESSION: Normal left ankle. Plantar calcaneal spur Dictated By: Kristen Engle MD Signed By: <Electronically signed by Kristen Engle MD in OV> 10/02/21927 DD/ 5 TD/TT:? Rock Mason Apprentice: Venous US: Radiologist's impression: [address] [address] Ultrasound Report Signed Patient: Tyson Artis MR#: [id number] : 1965 Acct:[id number] Age/Sex: 56 / M ADM Date: 10/02/21 Loc: HO.ED Attending Dr: Ordering Physician: Oren Jarrell Date of Service: 10/02/21 Procedure(s): US venous duplex LE LT Accession Number(s): [id number] cc: Oren Jarrell ~ EXAMINATION:? US VENOUS ULTRASOUND WITH DOPPLER LOWER EXTREMITY, LEFT CLINICAL INFORMATION:? Pain. COMPARISON:? None TECHNIQUE: Ultrasound of the deep veins is performed from the hip to the calf with compression sonography and color and pulse Doppler assessment. Spectral analysis with color-flow imaging is performed. FINDINGS: There is normal venous compression and respiratory variation and augmented flow. The visualized common femoral vein, superficial femoral vein, profunda femoral vein, popliteal vein, and the trifurcation region shows no evidence of deep venous thrombosis. ? There is no significant popliteal fossa cyst. If the patient's symptoms persist, followup ultrasound in 5 days 7 days might be of value to exclude proximal propagation from a non-visualized calf vein. US/US venous duplex LE LT IMPRESSION: No DVT demonstrated in the left lower extremity. Dictated By: Mayank Casas MD Signed By: <Electronically signed by Mayank Casas MD in [place]> 10/02/21 1103 DD/ 0940 TD/TT:? Rock Mason Apprentice: ALIZA Discharge Plan Discharge Clinical Impression: Calcaneal spur Qualifiers: Laterality: left Qualified Code(s): M77.32 - Calcaneal spur, left foot Patient Disposition: Home, Self-Care Instructions: Heel Spur (ED) Additional Instructions: A healed calcaneal spurs most likely causing your foot pain in the left side. Blood work is unremarkable for any size of infection When using Motrin please take with food may be contributing to some of your stomach pain. No sign of a blood clot in the left lower extremity. Return if symptoms worsen. Call Podiatry for follow-up [address] [place] [address], [facility], [place],?[id number] (Directions), , 10.21 miles. Joseph Nova,?DPM.? Prescriptions: New tramadol 50 mg tablet 50 mg PO BID PRN (Reason: pain) Qty: 7 0RF No Action (DME) AUTO CPAP \6-20 cm H20 Humidified AIR See Rx Instructions .Route .MEDSUPPLY Qty: 1 0RF Rx Instructions: As directed amlodipine 10 mg tablet 10 mg PO DAILY Qty: 90 1RF hydralazine 25 mg tablet 25 mg PO TID 90 Days Qty: 270 1RF hydrochlorothiazide 12.5 mg tablet 12.5 mg PO DAILY 90 Days Qty: 90 1RF lisinopril 40 mg tablet 40 mg PO DAILY 90 Days Qty: 90 1RF loratadine 10 mg tablet 10 mg PO DAILY 90 Days Qty: 90 2RF albuterol sulfate 90 mcg/actuation HFA aerosol inhaler 4 inh inhalation QID Qty: 8.5 0RF naproxen 500 mg tablet 500 mg PO BID PRN (Reason: pain) Qty: 20 0RF acetaminophen 500 mg tablet 500 - 1,000 mg PO Q6H PRN (Reason: pain) Qty: 30 0RF amoxicillin 875 mg tablet 875 mg PO BID Qty: 14 0RF Stand Alone Forms: Work/School Release Interventions: ED Discharge Assessment Last Done: 10/02/21 11:05 Discharge Date/Time: 10/02/21 11:06
[2021-10-02 09:24] LABS: MANUAL DIFF FLAG NO
[2021-10-02 09:25] LABS: Basophils Percent Auto 0.5 % (0-2); Eosinophils Absolute Auto 0.1 X10*3/uL (0.0-0.4); Eosinophils Percent Auto 2.9 % (0-4); Hematocrit 38.9 % (42.0-52.0); Hemoglobin 12.5 g/dl (14.0-18.0); Imm Gran Abs Auto 0.01 X10*3/uL (0.00-0.03); Imm Gran Pct Auto 0.2 % (0.0-0.4); Lymphocytes Absolute Auto 1.4 X10*3/uL (1.2-4.9); Lymphocytes Percent Auto 33.4 % (20-40); Mean Corpuscular HGB Conc 32.1 g/dl (31.0-36.0); Mean Corpuscular Hemoglobin 25.7 pg (27.0-33.0); Mean Corpuscular Volume 79.9 fL (80.0-98.0); Mean Platelet Volume 9.9 fL (9.4-12.4); Monocytes Absolute Auto 0.3 X10*3/uL (0.1-1.2); Monocytes Percent Auto 7.9 % (2-11); Neutrophils Absolute Auto 2.3 x10*3/uL (2.0-8.3); Neutrophils Percent Auto 55.1 % (45-73); Platelet Count 247 X10*3/uL (160-400); Red Blood Count 4.87 X10*6/uL (4.60-5.80); Red Cell Distribution Width 13.2 % (11.0-16.0); White Blood Count 4.2 X10*3/uL (4.8-10.8)
[2021-10-02 09:41] VITALS: BP 155/86; PULSE 18; RESP 18; TEMP 36.2; O2SAT 96; BMI 38.0
[2021-10-02 09:44] LABS: Alanine Aminotransferase 34 U/L (0-40); Albumin Level 4.2 g/dL (3.5-5.0); Alkaline Phosphatase 50 U/L (39-117); Anion Gap 11 (12-20); Aspartate Amino Transferase 23 U/L (5-37); Bilirubin Total 0.8 mg/dL (0.0-1.0); Blood Urea Nitrogen 14 mg/dL (9-16); Calcium 8.9 mg/dL (8.4-10.2); Carbon Dioxide 26 mmol/L (22-29); Chloride 107 mmol/L (96-108); Estimated Glomerular Filt Rate > 60; Glucose Random 96 mg/dL (60-115); Potassium 4.3 mmol/L (3.3-5.1); Sodium 140 mmol/L (135-145); Total Protein 6.7 g/dL (6.5-8.0)
== END 2021-10-02 11:06 | disposition home or self-care (01) ==
PROVIDERS: Physician Assistant; Emergency Provider Emergency Medicine; PCP Internal Medicine
DX: M77.32 Calcaneal spur, left foot (principal); M79.662 Pain in left lower leg; I10 Essential (primary) hypertension; R10.32 Left lower quadrant pain
CPT/HCPCS: 36415; 73610; 80053; 85025; 93971; 99283; 99284

== ENCOUNTER 2021-11-15 07:18 | Outpatient (REF) | payer BC, SELFPAY ==
[2021-11-15 07:31] LABS: MANUAL DIFF FLAG NO
[2021-11-15 08:04] LABS: Basophils Percent Auto 0.7 % (0-2); Eosinophils Absolute Auto 0.2 X10*3/uL (0.0-0.4); Eosinophils Percent Auto 3.3 % (0-4); Hematocrit 42.4 % (42.0-52.0); Hemoglobin 13.7 g/dl (14.0-18.0); Imm Gran Abs Auto 0.01 X10*3/uL (0.00-0.03); Imm Gran Pct Auto 0.2 % (0.0-0.4); Immature Retic Fraction 6.2 % (2.3-13.4); Lymphocytes Absolute Auto 1.5 X10*3/uL (1.2-4.9); Lymphocytes Percent Auto 33.3 % (20-40); Mean Corpuscular HGB Conc 32.3 g/dl (31.0-36.0); Mean Corpuscular Hemoglobin 26.6 pg (27.0-33.0); Mean Corpuscular Volume 82.2 fL (80.0-98.0); Mean Platelet Volume 10.6 fL (9.4-12.4); Monocytes Absolute Auto 0.4 X10*3/uL (0.1-1.2); Monocytes Percent Auto 9.1 % (2-11); Neutrophils Absolute Auto 2.5 x10*3/uL (2.0-8.3); Neutrophils Percent Auto 53.4 % (45-73); Platelet Count 238 X10*3/uL (160-400); Red Blood Count 5.16 X10*6/uL (4.60-5.80); Retic HGB Equivalent 30.1 pg (30.0-35.0); Reticulocyte Percent 1.2 % (0.5-1.8); Reticulocytes Absolute 0.062 X10*6/uL (0.026-0.095); White Blood Count 4.6 X10*3/uL (4.8-10.8)
[2021-11-15 08:23] LABS: Iron 93 mcg/dL (45-160); Magnesium 2.1 mg/dL (1.6-2.6); Percent Iron Saturation 32 % (15-50); Total Iron Binding Capacity 295 mcg/dL (228-428); Unsaturated Iron Binding 202 ug/dL
[2021-11-15 08:46] LABS: Ferritin 395 ng/mL (20-250)
[2021-11-17 09:03] LABS: Folate 14.1 ng/mL (> or = 4.0); Vitamin B12 763 pg/mL (200-900)
== END 2021-11-15 07:19 | disposition home or self-care (01) ==
LOC: HO.LAB 07:18
PROVIDERS: PCP Internal Medicine; Visit Provider Internal Medicine
DX: D64.9 Anemia, unspecified (principal)
CPT/HCPCS: 36415; 82607; 82728; 82746; 83540; 83735; 85025; 85045

== ENCOUNTER 2023-08-11 10:25 | Outpatient (AMB) | payer BC, SELFPAY ==
[2023-08-11 10:29] VITALS: BP 180/100; PULSE 94; TEMP 36.8; O2SAT 96; BMI 40.0
--- NOTE | 2023-08-11 10:29 | MHC.OFFWIV ---
Intake Vital Signs 08/11/23 10:29 Height 5 ft 6 in Weight 248 lb BMI 40.0 BP 180/100 H Blood Pressure Location Lt brachial Position Sitting Pulse 94 Pulse Source Pulse Oximeter Temp 98.3 F Temp Source Temporal Artery Scan Pulse Oximetry (%) 96 Oxygen Delivery Method Room Air Intake Visit Reasons: EST/vertigo (lobby masked) Intake Note: pt is here today for vertigo started wednesday Patient Tobacco Use Status: Never used Tobacco Allergies bee pollen [BEE STINGS] Allergy (Unknown, Verified 08/11/23 10:29) UNKNOWN amlodipine Adverse Reaction (Intermediate, Verified 08/11/23 10:29) weakness lisinopril Adverse Reaction (Intermediate, Verified 08/11/23 10:29) weakness Enviromental Allergy (Unknown, Uncoded 12/29/21 15:36) Unknown enviromental Allergy (Unknown, Uncoded 12/29/21 15:36) Unknown SEAFOOD Allergy (Unknown, Uncoded 12/29/21 15:36) NAUSEA & VOMITING Do you need a note to return to daycare/school/sports/work: Yes HPI HPI Comments History of Present Illness Details This is a 58-year-old male with a past medical history of uncontrolled hypertension, obstructive sleep apnea, hypertension and gastroesophageal reflux disease presenting for evaluation of vertigo. Patient states that he will occasionally feel lightheaded both day and night over the past 4 days. Patient denies any room spinning sensation. Patient has not taken any medication for treatment of his discomfort however states he was previously prescribed meclizine which was helpful for this sensation. Patient denies having any chest pain, headache, visual changes, ear pain, hearing loss or neck pain. Additionally, patient denies having any difficulty ambulating or having any syncopal episodes. Patient states he used to be on three antihypertensive medications however stopped these medications approximately one year ago. [facility] Medical History COVID-19 Asthma Panic attacks Obesity Impaired glucose tolerance Vitamin D deficiency Obstructive sleep apnea Hypertension GERD (gastroesophageal reflux disease) Surgical History History of umbilical hernia repair Family History Father Stroke Hypertension Myocardial infarct Mother Hypertension Social History Housing: House Alcohol intake: current Alcohol intake frequency: a few times a week Patient Tobacco Use Status: Never used Tobacco e-Cigarette/Vaping Use: Never Used Second Hand Smoke Exposure: No service: No Current occupational status: employed Current occupation: [employer] Cognitive needs: No Hearing needs: No Vision needs: No Review of Systems Const Details: lightheadedness, vertigo All systems reviewed & are unremarkable except as noted in HPI and below Denies chills, Denies fatigue, Denies fever(s) and Denies weakness Eyes Reports no additional complaints ENT Reports no additional complaints, Reports vertigo and Reports dizziness Card Reports no additional complaints Resp Reports no additional complaints GI Reports no additional complaints Skin/Breast Reports system reviewed and no additional complaints, except as documented Neuro Reports no additional complaints, Reports vertigo, Reports dizziness and Denies weakness Psych Reports no additional complaints Endo Denies fatigue Physical Exam Repeat blood pressure 176/112 Const General: cooperative, healthy appearing, comfortable and no acute distress; No acute distress, lethargic or patient obtunded Nutritional Appearance: overweight Orientation/consciousness: patient oriented x3, No patient obtunded and No lethargic Limitations: no limitations HEENT Head: Yes normal to inspection Ears: hearing grossly normal bilaterally, external ears normal, TM's normal bilaterally and EAC's normal General nose exam: Normal external nose present Face and sinus: Yes normal facial exam and Yes sinuses nontender Mouth: Normal oral and palatal mucosa present Throat: Yes posterior oropharynx normal Eyes Eyelids: Yes eyelids normal Conjunctivae: conjunctivae normal Sclerae: sclerae normal Corneas: corneas normal Pupils: Equal, round and reactive pupils present and Pupils normal by confrontation EOM: EOMs intact bilaterally Resp Effort & Inspection: normal respiratory effort Auscultation: clear to auscultation bilaterally Cardio Rate: regular rate Rhythm: regular rhythm Neuro General: patient oriented x3 and No patient obtunded Cranial nerves: Yes Equal, round and reactive pupils present Psych Appearance: grossly normal Mental Status: mental status grossly normal Insight: Good insight present (Psych) Judgement: Good judgement present (Psych) Assessment & Plan Assessment & Plan (1) Lightheadedness: Comment: Patient's history is more consistent with lightheadedness than true vertigo. Despite this, patient will be given meclizine as he states this has been helpful before. Also willing to treat hypertension at this time. Code(s): R42 - Dizziness and giddiness Plan: Meclizine 12.5 every 6-8 hours as needed. (2) Uncontrolled hypertension: Code(s): I10 - Essential (primary) hypertension Plan: Patient has not been on his antihypertensive medication regimen for approximately 1 year. Hypertension is likely chronic in nature; he is having no symptoms of a true hypertensive crisis. Patient's primary care provider is Dr. Trujillo and he will call Dr. Trujillo for follow-up in 30 days. We will conservatively initiate management with losartan presuming that further agents will be required to control his hypertension. Plan Initiate Losartan 25mg daily x 30 days. Patient will call today to arrange follow-up with Dr. Trujillo. Medications: New losartan 25 mg PO DAILY 30 tabs 0RF meclizine 12.5 mg PO Q6-8H PRN 30 tabs 0RF dizziness Coding Level of Care Code Est Pt Level 3 (90959) Diagnoses Lightheadedness R42 Uncontrolled hypertension I10 Time Spent (min) 20
== END 2023-08-11 10:50 | disposition home or self-care (01) ==
PROVIDERS: PCP Internal Medicine; Visit Provider Physician Assistant
DX: R42 Dizziness and giddiness (principal); I10 Essential (primary) hypertension
CPT/HCPCS: 99213

== ENCOUNTER → 2023-10-04 10:09 | Outpatient (BNVA) | payer OTHER, SELFPAY | PROVIDERS: PCP Internal Medicine; Visit Provider Physician Assistant Medical | DX: S16.1XXA Strain of muscle, fascia and tendon at neck level, initial encounter (principal); S29.012A Strain of muscle and tendon of back wall of thorax, initial encounter; X50.0XXA Overexertion from strenuous movement or load, initial encounter | CPT/HCPCS: 99203 ==

== ENCOUNTER → 2023-10-06 09:20 | Outpatient (BNVA) | payer OTHER, SELFPAY | PROVIDERS: PCP Internal Medicine; Visit Provider Physician Assistant | DX: S29.012A Strain of muscle and tendon of back wall of thorax, initial encounter (principal); X50.0XXA Overexertion from strenuous movement or load, initial encounter | CPT/HCPCS: 99214 ==

== ENCOUNTER 2023-10-06 10:23 | Emergency (ER) | payer OTHER, SELFPAY ==
[2023-10-06 10:27] VITALS: BP 199/108; PULSE 76; RESP 20; TEMP 36.9; O2SAT 96; BMI 40.0
--- NOTE | 2023-10-06 10:31 | ECG_ITS ---
Test Reason : hypertension Blood Pressure : / mmHG Vent. Rate : 073 BPM Atrial Rate : 073 BPM P-R Int : 166 ms QRS Dur : 072 ms QT Int : 506 ms P-R-T Axes : 049 043 071 degrees QTc Int : 557 ms Normal sinus rhythm ST & T wave abnormality, consider lateral ischemia Prolonged QT Abnormal ECG When compared with ECG of 15-SEP-2021 13:25, T wave inversion now evident in Lateral leads QT has lengthened Referred By: Generic ED Physician Electronically Signed By:VINCENZO CAMARILLO MD
--- NOTE | 2023-10-06 10:52 | ECG_ITS ---
Test Reason : hypertension Blood Pressure : / mmHG Vent. Rate : 071 BPM Atrial Rate : 071 BPM P-R Int : 154 ms QRS Dur : 076 ms QT Int : 380 ms P-R-T Axes : 053 045 069 degrees QTc Int : 412 ms Normal sinus rhythm Nonspecific T wave abnormality Abnormal ECG When compared with ECG of 06-OCT-2023 10:46, QT has shortened Referred By: Generic ED Physician Electronically Signed By:VINCENZO CAMARILLO MD
[2023-10-06 11:08] LABS: MANUAL DIFF FLAG NO
[2023-10-06 11:10] LABS: Basophils Percent Auto 0.7 % (0-2); Eosinophils Absolute Auto 0.1 X10*3/uL (0.0-0.4); Eosinophils Percent Auto 2.2 % (0-4); Hematocrit 44.5 % (42.0-52.0); Hemoglobin 14.5 g/dl (14.0-18.0); Imm Gran Abs Auto 0.03 X10*3/uL (0.00-0.03); Imm Gran Pct Auto 0.7 % (0.0-0.4); Lymphocytes Absolute Auto 1.4 X10*3/uL (1.2-4.9); Lymphocytes Percent Auto 30.4 % (20-40); Mean Corpuscular HGB Conc 32.6 g/dl (31.0-36.0); Mean Corpuscular Hemoglobin 26.2 pg (27.0-33.0); Mean Corpuscular Volume 80.5 fL (80.0-98.0); Mean Platelet Volume 10.1 fL (9.4-12.4); Monocytes Absolute Auto 0.4 X10*3/uL (0.1-1.2); Monocytes Percent Auto 8.3 % (2-11); Neutrophils Absolute Auto 2.6 x10*3/uL (2.0-8.3); Neutrophils Percent Auto 57.7 % (45-73); Platelet Count 230 X10*3/uL (160-400); Red Blood Count 5.53 X10*6/uL (4.60-5.80); Red Cell Distribution Width 13.6 % (11.0-16.0); White Blood Count 4.5 X10*3/uL (4.8-10.8)
[2023-10-06 11:27] LABS: Anion Gap 10 (12-20); Blood Urea Nitrogen 9 mg/dL (9-16); Calcium 9.2 mg/dL (8.4-10.2); Carbon Dioxide 29 mmol/L (22-29); Chloride 105 mmol/L (96-108); Creatinine Clr Calc Pharmacy 110.4; Estimated Glomerular Filt Rate > 60; Glucose Random 98 mg/dL (60-115); Potassium 3.9 mmol/L (3.3-5.1); Sodium 140 mmol/L (135-145)
[2023-10-06 11:36] LABS: Troponin-I High Sensitivity 5.9 ng/L (<3.5-35.0)
[2023-10-06 12:30] VITALS: BP 198/120; PULSE 81; RESP 20
--- NOTE | 2023-10-06 12:30 | ED_ITS ---
HPI - General Adult General Chief complaint: General Medical Stated complaint: High BP Time Seen by Provider: 10/06/23 13:13 Related Data Previous Rx's Medication Instructions Recorded AUTO CPAP \6-20 cm H20 Humidified #1 ea 02/07/21 AIR losartan 25 mg tablet 25 mg PO DAILY #30 tabs 08/11/23 meclizine 12.5 mg tablet 12.5 mg PO Q6-8H PRN dizziness #30 08/11/23 tabs cyclobenzaprine 10 mg tablet 10 mg PO BEDTIME PRN muscle spasm 10/04/23 #7 tabs Allergies Allergy/AdvReac Type Severity Reaction Status Date / Time bee pollen [BEE STINGS] Allergy Unknown UNKNOWN Verified 08/11/23 10:29 amlodipine AdvReac Intermediate weakness Verified 08/11/23 10:29 lisinopril AdvReac Intermediate weakness Verified 08/11/23 10:29 Enviromental Allergy Unknown Unknown Uncoded 12/29/21 15:36 enviromental Allergy Unknown Unknown Uncoded 12/29/21 15:36 SEAFOOD Allergy Unknown NAUSEA & Uncoded 12/29/21 15:36 VOMITING PMFSH Past Medical History Medical History COVID-19 Asthma Panic attacks Obesity Impaired glucose tolerance Vitamin D deficiency Obstructive sleep apnea Hypertension GERD (gastroesophageal reflux disease) Surgical History History of umbilical hernia repair Family History Family History Father Stroke Hypertension Myocardial infarct Mother Hypertension Social History Social History Housing: House Alcohol intake: current Alcohol intake frequency: a few times a week Patient Tobacco Use Status: Never used Tobacco e-Cigarette/Vaping Use: Never Used Second Hand Smoke Exposure: No Advance Directives: No service: No Current occupational status: employed Current occupation: [employer] Cognitive needs: No Hearing needs: No Vision needs: No Physical Exam ED Vital Signs: Vital Signs - 24 hr 10/06/23 10:27 10/06/23 12:30 10/06/23 14:37 Temperature 98.5 F 97.5 F Pulse Rate 76 81 70 Respiratory Rate 20 20 18 Blood Pressure 199/108 H 198/120 H 201/105 H Pulse Oximetry 96 96 Oxygen Delivery Method Room Air Room Air BMI result Body Mass Index 40.0 Course Course Course Narrative: This is an RME: Additional HPI, ROS, PE not included below will be deferred to primary provider. This is a 57-luhl-fpz-male, with a hx of hypertension, presenting to the ER with complaints of hypertension and back pain. Pt has been seen at [facility] for back pain and was sent here due to elevated BP. BP still elevated at 198/120.No current CP, but reported some CP upon arrival. Pt requesting pain medication for back pain, he already took tylenol this am. Plan: Labs, EKG, motrin 600mg Medications Administered Discontinued Medications Generic Name Dose Route Start Last Admin Trade Name Freq PRN Reason Stop Dose Admin Cyclobenzaprine HCl 10 mg 10/06/23 13:27 10/06/23 14:36 Cyclobenzaprine Hcl 10 Mg Tablet PO 10/06/23 13:28 10 mg ONCE ONE Administration Ibuprofen 600 mg 10/06/23 12:35 10/06/23 12:37 Ibuprofen 600 Mg Tablet PO 10/06/23 12:36 600 mg ONCE ONE Administration Losartan Potassium 50 mg 10/06/23 13:28 10/06/23 14:36 Losartan Potassium 50 Mg Tablet PO 10/06/23 13:29 50 mg ONCE ONE Administration Protocol Metoprolol Succinate 150 mg 10/06/23 13:28 10/06/23 14:36 Metoprolol Succinate Er 50 Mg Tab.Er.24h PO 10/06/23 13:29 150 mg ONCE ONE Administration Protocol Medical Decision Making Lab Data 10/06/23 11:04 10/06/23 11:04 Labs: Lab Results 10/06/23 Range/Units 11:04 WBC 4.5 L (4.8-10.8) X10*3/uL RBC 5.53 (4.60-5.80) X10*6/uL Hgb 14.5 (14.0-18.0) g/dl Hct 44.5 (42.0-52.0) % MCV 80.5 (80.0-98.0) fL MCH 26.2 L (27.0-33.0) pg MCHC 32.6 (31.0-36.0) g/dl RDW 13.6 (11.0-16.0) % Plt Count 230 (160-400) X10*3/uL MPV 10.1 (9.4-12.4) fL Immature Gran % (Auto) 0.7 H (0.0-0.4) % Neut % (Auto) 57.7 (45-73) % Lymph % (Auto) 30.4 (20-40) % [place] % (Auto) 8.3 (2-11) % Eos % (Auto) 2.2 (0-4) % Baso % (Auto) 0.7 (0-2) % Lymph # (Auto) 1.4 (1.2-4.9) X10*3/uL [place] # (Auto) 0.4 (0.1-1.2) X10*3/uL Eos # (Auto) 0.1 (0.0-0.4) X10*3/uL Baso # (Auto) 0.0 (0.0-0.2) X10*3/uL Abs Immat Gran (auto) 0.03 (0.00-0.03) X10*3/uL Absolute Neuts (auto) 2.6 (2.0-8.3) x10*3/uL Absolute Nucleated RBC 0.000 (0.0-0.012) X10*3/uL Nucleated RBC % (auto) 0.0 (0.0-0.2) /100WBC Sodium 140 (135-145) mmol/L Potassium 3.9 (3.3-5.1) mmol/L Chloride 105 (96-108) mmol/L Carbon Dioxide 29 (22-29) mmol/L Anion Gap 10 L (12-20) BUN 9 (9-16) mg/dL Creatinine 0.88 (0.5-1.4) mg/dL Estim Creat Clear Calc 110.4 Estimated GFR > 60 Random Glucose 98 (60-115) mg/dL Calcium 9.2 (8.4-10.2) mg/dL Troponin I High Sens 5.9 (<3.5-35.0) ng/L Discharge Plan Discharge Clinical Impression: Hypertension, Acute right-sided thoracic back pain Prescriptions: No Action (DME) AUTO CPAP \6-20 cm H20 Humidified AIR See Rx Instructions .Route .MEDSUPPLY Qty: 1 0RF Rx Instructions: As directed meclizine 12.5 mg tablet 12.5 mg PO Q6-8H PRN (Reason: dizziness) Qty: 30 0RF losartan 25 mg tablet 25 mg PO DAILY Qty: 30 0RF cyclobenzaprine 10 mg tablet 10 mg PO BEDTIME PRN (Reason: muscle spasm) Qty: 7 0RF
[2023-10-06] MEDS: Ibuprofen 600 MG TABLET PO (12:37)
--- NOTE | 2023-10-06 13:31 | ED.GENADULT ---
HPI - General Adult General Chief complaint: General Medical Stated complaint: High BP Time Seen by Provider: 10/06/23 13:13 Source: patient Mode of arrival: ambulatory Limitations: no limitations History of Present Illness HPI narrative: Patient injured his back a few days ago, since that time his BP has been very elevated, he states that his BP is always elevated and he does not take his medication. He injured his right lateral thoracic back Onset (ago): day(s) Related Data Previous Rx's Medication Instructions Recorded AUTO CPAP \6-20 cm H20 Humidified #1 ea 02/07/21 AIR losartan 25 mg tablet 25 mg PO DAILY #30 tabs 08/11/23 meclizine 12.5 mg tablet 12.5 mg PO Q6-8H PRN dizziness #30 08/11/23 tabs cyclobenzaprine 10 mg tablet 10 mg PO BEDTIME PRN muscle spasm 10/04/23 #7 tabs cyclobenzaprine 10 mg tablet 10 mg PO TID #10 tabs 10/06/23 losartan 50 mg tablet 50 mg PO DAILY #30 tabs 10/06/23 metoprolol succinate 100 mg 100 mg PO DAILY #30 ea 10/06/23 capsule sprinkle, ext. release 24 hr Allergies Allergy/AdvReac Type Severity Reaction Status Date / Time bee pollen [BEE STINGS] Allergy Unknown UNKNOWN Verified 08/11/23 10:29 amlodipine AdvReac Intermediate weakness Verified 08/11/23 10:29 lisinopril AdvReac Intermediate weakness Verified 08/11/23 10:29 Enviromental Allergy Unknown Unknown Uncoded 12/29/21 15:36 enviromental Allergy Unknown Unknown Uncoded 12/29/21 15:36 SEAFOOD Allergy Unknown NAUSEA & Uncoded 12/29/21 15:36 VOMITING Review of Systems Review of Systems: Yes all other systems are reviewed and are negative Neurologic: Denies Sensory deficit (Neuro) REPLACED BY [facility] Past Medical History Medical History COVID-19 Asthma Panic attacks Obesity Impaired glucose tolerance Vitamin D deficiency Obstructive sleep apnea Hypertension GERD (gastroesophageal reflux disease) Surgical History History of umbilical hernia repair Family History Family History Father Stroke Hypertension Myocardial infarct Mother Hypertension Social History Social History Housing: House Alcohol intake: current Alcohol intake frequency: a few times a week Patient Tobacco Use Status: Never used Tobacco e-Cigarette/Vaping Use: Never Used Second Hand Smoke Exposure: No Advance Directives: No service: No Current occupational status: employed Current occupation: [employer] Cognitive needs: No Hearing needs: No Vision needs: No Physical Exam ED Vital Signs: Vital Signs - 24 hr 10/06/23 10:27 10/06/23 12:30 10/06/23 14:37 Temperature 98.5 F 97.5 F Pulse Rate 76 81 70 Respiratory Rate 20 20 18 Blood Pressure 199/108 H 198/120 H 201/105 H Pulse Oximetry 96 96 Oxygen Delivery Method Room Air Room Air BMI result Body Mass Index 40.0 Const Other: male in mild back pain Nutritional Appearance: obese Orientation/consciousness: oriented to person and patient oriented x3 Limitations: no limitations HENMT Head: Yes normal to inspection Ears: external ears normal General nose exam: Normal external nose present Mouth: Normal oral and palatal mucosa present and oropharynx normal Throat: Yes posterior oropharynx normal Eyes General: appearance normal, both eyes and all related structures Neck Neck: Yes normal visual inspection Chest Chest palpation & inspection: normal inspection of the chest Resp Auscultation: clear to auscultation bilaterally Cardio Jugular venous distension: no JVD Rate: regular rate Rhythm: regular rhythm Heart sounds: S1 normal heart sound present and S2 normal heart sound present GI Inspection: Yes normal to inspection Palpation (GI): Soft to palpation, nontender and No hepatosplenomegaly present Auscultation: normal bowel sounds General: Yes no CVA tenderness Back/Spine/Pelvis Back: no CVA tenderness Skin General skin exam: no rashes or lesions noted Neuro General: oriented to person and patient oriented x3 Cranial nerves: Yes CN's II-XII intact bilaterally Motor exam (neuro): 5/5 motor strength present throughout Sensory Exam: No Sensory deficit (Neuro) Extrem General: Yes normal to inspection Psych Appearance: grossly normal Course Course Course Narrative: This is an RME: Additional HPI, ROS, PE not included below will be deferred to primary provider. This is a 89-gyoj-yez-male, with a hx of hypertension, presenting to the ER with complaints of hypertension and back pain. Pt has been seen at [facility] for back pain and was sent here due to elevated BP. BP still elevated at 198/120.No current CP, but reported some CP upon arrival. Pt requesting pain medication for back pain, he already took tylenol this am. Plan: Labs, EKG, motrin 600mg Reevaluation(s) Reevaluation #1: repeat BP improved will dc home Time: 15:27 Medications Administered Discontinued Medications Generic Name Dose Route Start Last Admin Trade Name Razq PRN Reason Stop Dose Admin Cyclobenzaprine HCl 10 mg 10/06/23 13:27 10/06/23 14:36 Cyclobenzaprine Hcl 10 Mg Tablet PO 10/06/23 13:28 10 mg ONCE ONE Administration Ibuprofen 600 mg 10/06/23 12:35 10/06/23 12:37 Ibuprofen 600 Mg Tablet PO 10/06/23 12:36 600 mg ONCE ONE Administration Losartan Potassium 50 mg 10/06/23 13:28 10/06/23 14:36 Losartan Potassium 50 Mg Tablet PO 10/06/23 13:29 50 mg ONCE ONE Administration Protocol Metoprolol Succinate 150 mg 10/06/23 13:28 10/06/23 14:36 Metoprolol Succinate Er 50 Mg Tab.Er.24h PO 10/06/23 13:29 150 mg ONCE ONE Administration Protocol Medical Decision Making Differential Diagnosis Differential Diagnoses: The differential diagnosis associated with the presentation includes (hypertensive crisis, hypertensive urgency, cardiac ischemia, renal failure were all considered) Admission/Observation Consideration of admission/observation: Escalation of care including admission/observation considered (upon arrival patient considered for admission) Lab Data 10/06/23 11:04 10/06/23 11:04 Labs: Lab Results 10/06/23 Range/Units 11:04 WBC 4.5 L (4.8-10.8) X10*3/uL RBC 5.53 (4.60-5.80) X10*6/uL Hgb 14.5 (14.0-18.0) g/dl Hct 44.5 (42.0-52.0) % MCV 80.5 (80.0-98.0) fL MCH 26.2 L (27.0-33.0) pg MCHC 32.6 (31.0-36.0) g/dl RDW 13.6 (11.0-16.0) % Plt Count 230 (160-400) X10*3/uL MPV 10.1 (9.4-12.4) fL Immature Gran % (Auto) 0.7 H (0.0-0.4) % Neut % (Auto) 57.7 (45-73) % Lymph % (Auto) 30.4 (20-40) % [place] % (Auto) 8.3 (2-11) % Eos % (Auto) 2.2 (0-4) % Baso % (Auto) 0.7 (0-2) % Lymph # (Auto) 1.4 (1.2-4.9) X10*3/uL [place] # (Auto) 0.4 (0.1-1.2) X10*3/uL Eos # (Auto) 0.1 (0.0-0.4) X10*3/uL Baso # (Auto) 0.0 (0.0-0.2) X10*3/uL Abs Immat Gran (auto) 0.03 (0.00-0.03) X10*3/uL Absolute Neuts (auto) 2.6 (2.0-8.3) x10*3/uL Absolute Nucleated RBC 0.000 (0.0-0.012) X10*3/uL Nucleated RBC % (auto) 0.0 (0.0-0.2) /100WBC Sodium 140 (135-145) mmol/L Potassium 3.9 (3.3-5.1) mmol/L Chloride 105 (96-108) mmol/L Carbon Dioxide 29 (22-29) mmol/L Anion Gap 10 L (12-20) BUN 9 (9-16) mg/dL Creatinine 0.88 (0.5-1.4) mg/dL Estim Creat Clear Calc 110.4 Estimated GFR > 60 Random Glucose 98 (60-115) mg/dL Calcium 9.2 (8.4-10.2) mg/dL Troponin I High Sens 5.9 (<3.5-35.0) ng/L Independent Interpretation I performed an independent interpretation of an: EKG (sinus 71, biphasic ts laterally) External Record Review External record reviewed: Outpatient record Prescription Management I considered prescription management with: Antibiotic (no evidence of urinary infection) Chronic Conditions Patient?s care impacted by: Hypertension Discharge Plan Discharge Clinical Impression: Hypertension, Acute right-sided thoracic back pain Patient Disposition: Home, Self-Care Instructions: Hypertension (ED), Back Pain (ED) Prescriptions: New losartan 50 mg tablet 50 mg PO DAILY Qty: 30 0RF metoprolol succinate 100 mg capsule,sprinkle,ER 24hr 100 mg PO DAILY Qty: 30 0RF cyclobenzaprine 10 mg tablet 10 mg PO TID Qty: 10 0RF No Action (DME) AUTO CPAP \6-20 cm H20 Humidified AIR See Rx Instructions .Route .MEDSUPPLY Qty: 1 0RF Rx Instructions: As directed meclizine 12.5 mg tablet 12.5 mg PO Q6-8H PRN (Reason: dizziness) Qty: 30 0RF losartan 25 mg tablet 25 mg PO DAILY Qty: 30 0RF cyclobenzaprine 10 mg tablet 10 mg PO BEDTIME PRN (Reason: muscle spasm) Qty: 7 0RF Referrals: Physician,None [Primary Care Provider] - 3 days
[2023-10-06] MEDS: Losartan Potassium 50 MG TABLET PO (14:36)
[2023-10-06] MEDS: Cyclobenzaprine HCl 10 MG TABLET PO (14:36)
[2023-10-06] MEDS: Metoprolol Succinate ER 50 MG TAB.ER.24H 150 MG PO (14:36)
[2023-10-06 14:37] VITALS: BP 201/105; PULSE 70; RESP 18; TEMP 36.4; O2SAT 96
[2023-10-06 15:39] VITALS: BP 199/119; PULSE 63; RESP 18; TEMP 36.4; O2SAT 95
[2023-10-06 15:44] VITALS: BP 199/119; PULSE 63; RESP 18; TEMP 36.4; O2SAT 95
== END 2023-10-06 15:45 | disposition home or self-care (01) ==
PROVIDERS: Emergency Provider Emergency Medicine
DX: M54.6 Pain in thoracic spine (principal); I10 Essential (primary) hypertension; R07.9 Chest pain, unspecified; J45.909 Unspecified asthma, uncomplicated; Z88.8 Allergy status to other drugs, medicaments and biological substances
CPT/HCPCS: 36415; 80048; 84484; 85025; 93005; 99283; 99284

== ENCOUNTER → 2023-10-06 10:31 | Outpatient (BNV) | payer OTHER, SELFPAY | PROVIDERS: Emergency Provider Emergency Medicine; Visit Provider Internal Medicine Cardiovascular Disease | DX: R94.31 Abnormal electrocardiogram [ECG] [EKG] (principal) | CPT/HCPCS: 93010 ==

== ENCOUNTER → 2023-10-11 09:57 | Outpatient (BNVA) | payer OTHER, SELFPAY | PROVIDERS: Visit Provider Physician Assistant Medical | DX: S16.1XXA Strain of muscle, fascia and tendon at neck level, initial encounter (principal); S29.012A Strain of muscle and tendon of back wall of thorax, initial encounter; X50.0XXA Overexertion from strenuous movement or load, initial encounter; X50.3XXA Overexertion from repetitive movements, initial encounter | CPT/HCPCS: 99213 ==

== ENCOUNTER 2023-10-13 10:19 | Outpatient (AMB) | payer BC, SELFPAY ==
--- NOTE | 2023-10-13 10:19 | AM.OFFWIN_ITS ---
Intake Vital Signs 10/13/23 10:20 Height 5 ft 6 in Weight 249 lb 4 oz BMI 40.2 BP 168/104 H Blood Pressure Location Lt brachial Position Sitting Pulse 77 Pulse Source Pulse Oximeter Temp 97.7 F Temp Source Temporal Artery Scan Pulse Oximetry (%) 97 Oxygen Delivery Method Room Air Intake Visit Reasons: EP mouth pain Intake Note: Pt presents to the office today for c/o mouth pain that started about 1 month ago. Pt states the pain is just getting worse. Patient Tobacco Use Status: Never used Tobacco Allergies bee pollen [BEE STINGS] Allergy (Unknown, Verified 10/13/23 10:23) UNKNOWN amlodipine Adverse Reaction (Intermediate, Verified 10/13/23 10:23) weakness lisinopril Adverse Reaction (Intermediate, Verified 10/13/23 10:23) weakness Enviromental Allergy (Unknown, Uncoded 10/13/23 10:23) Unknown enviromental Allergy (Unknown, Uncoded 10/13/23 10:23) Unknown SEAFOOD Allergy (Unknown, Uncoded 10/13/23 10:23) NAUSEA & VOMITING HPI HPI Comments History of Present Illness Details He presnts with L tooth pain Ongling for a while [facility]ses [facility] and uable to get appointment 04/13 No medicine besides tylenol without relief No fevers currently He is hypertensive and he said this isnt usual but he pulled back last wednesday and his tooth pain makes it worse No CP or SOB Seeing PCP wednesday' pn losartan and metoprolol and taking as prescribed PFSH Medical History COVID-19 Asthma Panic attacks Obesity Impaired glucose tolerance Vitamin D deficiency Obstructive sleep apnea Hypertension GERD (gastroesophageal reflux disease) Surgical History History of umbilical hernia repair Family History Father Stroke Hypertension Myocardial infarct Mother Hypertension Social History Housing: House Alcohol intake: current Alcohol intake frequency: a few times a week Patient Tobacco Use Status: Never used Tobacco e-Cigarette/Vaping Use: Never Used Second Hand Smoke Exposure: No service: No Current occupational status: employed Current occupation: [employer] Cognitive needs: No Hearing needs: No Vision needs: No Review of Systems Const Denies chills and Denies fever(s) ENT Reports dental pain, Denies otalgia, Denies lip swelling and Denies sore throat Card Denies chest pain Resp Denies cough Aller/Immun Denies lip swelling Physical Exam Vital Signs: Last Vital Signs Temp 97.7 F 10/13/23 10:20 Pulse 77 10/13/23 10:20 BP 168/104 H 10/13/23 10:20 Pulse Ox 97 10/13/23 10:20 Oxygen Delivery Method Room Air 10/13/23 10:20 BMI result Body Mass Index 40.2 General: Non-toxic, NAD. Speaking full sentences. Skin: Warm dry throughout. No facial edema or erythema noted. No submandibular edema Eye: EOMI, PERRL HENT: Airway patent. Uvula midline. No pharyngeal erythema or edema. 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 No dental abscesses noted. No edema or mass to sublingual region. + dental caries throughout. Gingival surrounding L upper posterior molar is edematous Bilateral canals clear. TM non-erythematous, non-bulging. No TM perforation or hemotympanum noted. Lymph: + L submandibular lymph node palpated and tender Respiratory: No tachynea MSK: Full ROM extremities. Neurology: A/O. No aphasia or facial droop. Gait without abnormality Psych: Good mood and affect Assessment & Plan Assessment & Plan (1) Pain, dental: Code(s): K08.89 - Other specified disorders of teeth and supporting structures Plan: Patient seen and evaluated. No oral abscess appreciated Pt aware of HTN and is on 2 meds and has PCP follow up Wednesday He will make appointment with dentist Discussed head elevation and antibiotic use Patient gave verbal understanding and had no additional questions or concerns at time of discharge All questions answered Medications: New penicillin V potassium 500 mg PO BID 14 tabs 0RF 7 days Coding Level of Care Code Est Pt Level 3 (89466) Diagnoses Pain, dental K08.89
[2023-10-13 10:20] VITALS: BP 168/104; PULSE 77; TEMP 36.5; O2SAT 97; BMI 40.2
== END 2023-10-13 10:47 | disposition home or self-care (01) ==
PROVIDERS: PCP Internal Medicine; Visit Provider Physician Assistant
DX: K08.89 Other specified disorders of teeth and supporting structures (principal)
CPT/HCPCS: 99213

== ENCOUNTER 2023-10-15 16:29 | Outpatient (AMB) | payer BC, SELFPAY ==
--- NOTE | 2023-10-15 16:32 | A.OFFPC_ITS ---
Vital Signs 10/15/23 16:48 Height 5 ft 6 in Weight 244 lb 6 oz BMI 39.4 BP 200/122 H Blood Pressure Location Lt brachial Position Sitting Pulse 100 Pulse Source Pulse Oximeter Pulse Oximetry (%) 97 Oxygen Delivery Method Room Air Intake Visit Reasons: elevated BP Intake Note: Patient is here to follow up on HTN. 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 Accompanied by: Self / Same As Patient Allergies bee pollen [BEE STINGS] Allergy (Unknown, Verified 10/15/23 17:14) UNKNOWN amlodipine Adverse Reaction (Intermediate, Verified 10/15/23 17:14) weakness lisinopril Adverse Reaction (Intermediate, Verified 10/15/23 17:14) weakness Enviromental Allergy (Unknown, Uncoded 10/15/23 17:14) Unknown enviromental Allergy (Unknown, Uncoded 10/15/23 17:14) Unknown SEAFOOD Allergy (Unknown, Uncoded 10/15/23 17:14) NAUSEA & VOMITING Medication List - Last Reconciled 10/15/23 by Navarro Barkley MD [AUTO CPAP \6-20 cm H20 Humidified AIR As directed] cyclobenzaprine 10 mg PO TID losartan 50 mg PO DAILY metoprolol succinate ER 100 mg PO DAILY penicillin V potassium 500 mg PO BID 7 days Tobacco use date assessed: 10/15/23 HPI elevated BP HPI Details Patient comes in today for high blood pressure follow up He is a patient of Dr. Trujillo but has not been back in almost 2 years - was last seen by Dr. Trujillo in December 2021 Patient states that he has been out of his Metoprolol ER 100 mg Rx for about a week and just got back on it a couple of days ago He also apparently hurt his upper back (right thoracic area) last week and went to [facility], where he was noted to have high blood pressure readings and was sent to the ER then for further evaluation States that his right upper back pain has since resolved and no longer bothers him and he needs a doctor's note to clear him to go back to work with no restrictions His BP readings over the past couple of days have ranged from systolic BP readi ngs of 145 to 181 mm and diastolic BP readings of between 86 to 103 mm; 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 He denies any headaches or dizziness Denies any chest pains, no SOB No nausea/vomiting, no abdominal pain No change in bowel habits noted [facility] Medical History (Updated 10/15/23 @ 18:57 by Navarro Barkley MD) Essential hypertension COVID-19 Asthma Panic attacks Obesity Impaired glucose tolerance Vitamin D deficiency Obstructive sleep apnea Hypertension GERD (gastroesophageal reflux disease) Surgical History History of umbilical hernia repair Family History Father Stroke Hypertension Myocardial infarct Mother Hypertension Social History Housing: House Alcohol intake: current Alcohol intake frequency: a few times a week Patient Tobacco Use Status: Never used Tobacco e-Cigarette/Vaping Use: Never Used Second Hand Smoke Exposure: No service: No Current occupational status: employed Current occupation: [employer] Cognitive needs: No Hearing needs: No Vision needs: No Questionnaire PHQ-9 Over the last 2 weeks, how often have you been bothered by any of the following problems? 1. Little interest or pleasure in doing things: not at all 2. Feeling down, depressed, or hopeless: not at all 3. Trouble falling or staying asleep, or sleeping too much: not at all 4. Feeling tired or having little energy: not at all 5. Poor appetite or overeating: not at all 6. Feeling bad about yourself - or that you are a failure or have let yourself or your family down: not at all 7. Trouble concentrating on things, such as reading the newspaper or watching television: not at all 8. Moving or speaking so slowly that other people could have noticed. Or the opposite - being so fidgety or restless that you have been moving around a lot more than usual: not at all 9. Thoughts that you would be better off or of hurting yourself in some way: not at all Total score: 0 Depression Screening Interpretation: Negative Depression Screening Done: Yes 41231 - PHQ-9 Billing: Yes Source: Developed by Drs. Ayad Soriano, Maryuri Edwards, Rolo Morataya and colleagues, with an educational jose from [email or web address]. Thrive Questionnaire Date Thrive assessed: 10/15/23 I am a: Patient What is your living situation today?: I have a steady place to live Within the past 12 months, did the food you bought not last and you didn't have the money to get more?: Never true Within the past 12 months, did you worry whether your food would run out before you got money to buy more?: Never true Do you have trouble paying for medicines?: No Do you have trouble getting transportation to medical appointments?: No Do you have trouble paying your heating and electricity bill?: No Do you have trouble taking care of your child, family member or friend?: No Do you have trouble with day-to-day activities such as bathing, preparing meals, shopping, managing finances, etc.?: No Are you currently unemployed and looking for a job?: No Are you interested in more education?: No Currently or been in a relationship where the following occur: no concerns reported THRIVE Score: 0 AUDIT C Alcohol Use Questionnaire (AUDIT-C) 1. How often do you have a drink containing alcohol?: Never 3. How often do you have six or more drinks on one occasion?: Never Total Score: 0 Score Reviewed/Action Taken: Yes JACQUELINE-7 AMB Questionnaire JACQUELINE-7 Date JACQUELINE - 7 assessed: 10/15/23 Feeling nervous, anxious, or on edge: 3 = Nearly every day Not being able to stop or control worryin = Nearly every day Worrying too much about different things: 3 = Nearly every day Trouble relaxin = Nearly every day Being so restless that it is hard to sit still: 3 = Nearly every day Becoming easily annoyed or irritable: 1 = Several days Feeling afraid as if something awful might happen: 3 = Nearly every day Total JACQUELINE-7 score (0-4 normal; 5-9 mild; 10-14 moderate; 15-21 severe): 19 Source: Developed by Drs. Ayad Soriano, Maryuri Edwards, Rolo Morataya and colleagues, with an educational jose from [email or web address]. JACQUELINE-7 Assessment Billing JACQUELINE-7 Assessment Tool: JACQUELINE-7 Assessment 45581 Review of Systems Const Denies chills, Denies fatigue, Denies fever(s) and Denies headache(s) ENT Denies dysphagia, Denies dizziness, Denies otalgia, Denies headache(s), Denies neck pain, Denies odynophagia and Denies sore throat Card Denies chest pain, Denies palpitations and Denies dyspnea Resp Denies cough and Denies dyspnea GI Denies abdominal pain, Denies constipation, Denies dysphagia, Denies heartburn, Denies diarrhea, Denies nausea, Denies odynophagia and Denies vomiting Denies dysuria, Denies nocturia and Denies urinary frequency Musc Denies back pain and Denies neck pain Skin/Breast Denies rash Neuro Denies dizziness and Denies headache(s) Endo Denies fatigue and Denies palpitations Physical exam (Primary Care) Vital Signs: Last Vital Signs Pulse 100 10/15/23 16:48 BP 200/122 H 10/15/23 16:48 Pulse Ox 97 10/15/23 16:48 Oxygen Delivery Method Room Air 10/15/23 16:48 BMI result Body Mass Index 39.4 Tobacco/Smoking Status: Tobacco use Status Tobacco use date assessed 10/15/23 10/15/23 17:02 Patient Tobacco Use Status Never used Tobacco 10/15/23 16:33 e-Cigarette/Vaping Use Never Used 10/15/23 16:33 PHQ-9: PHQ-9 Score PHQ-9: Total score 0 10/15/23 17:15 Depression Screening Interpretation: Negative Thrive Assessment: Date of Thrive Assessment Date Thrive assessed 09/12/21 10/15/23 16:33 Currently or been in a relationship where the following occur: no concerns reported Const General: no acute distress and alert HENMT Throat: Yes posterior oropharynx normal and Yes tonsils normal (no TP congestion) Neck Neck: Yes no lymphadenopathy and Yes supple Resp Auscultation: clear to auscultation bilaterally, no rales and no wheezes Cardio Rate: regular rate Rhythm: regular rhythm Heart sounds: no murmurs GI Palpation (GI): Soft to palpation and nontender Auscultation: normal bowel sounds General: Yes no CVA tenderness Back/Spine/Pelvis Back: no CVA tenderness Thoracic/Lumbar Spine: thoracic and lumbar spine normal to inspection Skin Rashes: no rashes Extrem General: Yes no clubbing, cyanosis or edema Results Reviewed Results Reviewed: Laboratory Tests 10/06/23 11:04 WBC 4.5 L Hgb 14.5 Hct 44.5 Plt Count 230 Sodium 140 Potassium 3.9 Creatinine 0.88 Estimated GFR > 60 Random Glucose 98 Calcium 9.2 Troponin I High Sens 5.9 Assessment and Plan Assessment & Plan (1) Essential hypertension: Code(s): I10 - Essential (primary) hypertension Plan: Reinforced low sodium diet - goal is systolic BP of 120 mm or less He had some routine labs done at the ER last week - results were all normal with no evidence of end-organ damage so far Continue Losartan 50 mg QD and Metoprolol ER 100 mg QD - he was out of Metoprolol ER for about a week and just got back on it a couple of days ago Will start him on Clonidine 0.1 mg Q HS Patient is instructed to continue monitoring his blood pressure regularly (2) Thoracic myofascial strain: Code(s): S29.019A - Strain of muscle and tendon of unspecified wall of thorax, initial encounter Qualifiers: Encounter type: sequela Qualified Code(s): S29.019S - Strain of muscle and tendon of unspecified wall of thorax, sequela Plan: He reportedly hurt his right upper back while at work last week and has been out of work since States that his back pain have resolved completely and no longer bothers him at present and he would like to go back to work but needs a note from PCP clearing him for unrestricted work Will have the office (check out) provide him with a clearance letter - he is able to return to work with no physical restriction but he is still cautioned to get his BP under control quickly Plan Will have patient follow up with his PCP (Dr. Trujillo) in 1 to 2 months for his blood pressure control Medications: New clonidine HCl 0.1 mg PO BEDTIME 30 days 30 tabs 2RF Refilled losartan 50 mg PO DAILY 30 tabs 2RF metoprolol succinate ER 100 mg PO DAILY 30 ea 2RF Coding Level of Care Code Est Pt Level 3 (29845) Diagnoses Essential hypertension I10 Thoracic myofascial strain, sequela S29.019S Encounter type: sequela Additional Codes JACQUELINE-7 Assessment Billing - JACQUELINE-7 Assessment Tool: JACQUELINE-7 Assessment [id number] ([id number])
[2023-10-15 16:48] VITALS: BP 200/122; PULSE 100; O2SAT 97; BMI 39.4
== END 2023-10-15 17:26 | disposition home or self-care (01) ==
PROVIDERS: PCP Internal Medicine; Visit Provider Internal Medicine
DX: I10 Essential (primary) hypertension (principal); S29.019S Strain of muscle and tendon of unspecified wall of thorax, sequela
CPT/HCPCS: 99213

== ENCOUNTER 2023-12-29 13:52 | Outpatient (AMB) | payer BC, SELFPAY ==
[2023-12-29 13:54] VITALS: BP 180/108; PULSE 67; O2SAT 98; BMI 40.5
--- NOTE | 2023-12-29 13:54 | A.OFFPC_ITS ---
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 Department Helper: Not Required per policy Accompanied by: Self / Same As Patient Allergies bee pollen [BEE STINGS] Allergy (Unknown, Verified 12/29/23 13:55) UNKNOWN amlodipine Adverse Reaction (Intermediate, Verified 12/29/23 13:55) weakness lisinopril Adverse Reaction (Intermediate, Verified 12/29/23 13:55) weakness Enviromental Allergy (Unknown, Uncoded 12/29/23 13:55) Unknown enviromental Allergy (Unknown, Uncoded 12/29/23 13:55) Unknown SEAFOOD Allergy (Unknown, Uncoded 12/29/23 13:55) NAUSEA & VOMITING Medication List - Last Reconciled 12/29/23 by Carlos Enrique Trujillo MD [AUTO CPAP \6-20 cm H20 Humidified AIR As directed] clonidine HCl 0.1 mg PO BEDTIME 30 days cyclobenzaprine 10 mg PO TID losartan 100 mg PO DAILY penicillin V potassium 500 mg PO BID 7 days Tobacco use date assessed: 10/15/23 Dental Screening Dental Screen Date: 12/29/23 Did you have a dental visit in the last 12 months?: No Did you have a dental problem in the last 6 months where you did not have access to dental care?: No Was dental information given to patient?: Patient has dentist HPI uncontrolled BP/HTN HPI Details 58-year-old morbidly obese male(weight g ain of 7 lb) having chronic anemia hypertension last seen in 2021. Arun is up-to-date 12/22/2021. Patient has been seen by my colleague in October on losartan and metoprolol and started on clonidine had some upper back at work [facility] Medical History (Updated 12/29/23 @ 14:24 by Carlos Enrique Trujillo MD) Fatigue Tinnitus Sinusitis Colon cancer screening Otitis media, left Acute maxillary sinusitis Pain, dental Uncontrolled hypertension Hypertension Obesity Essential hypertension COVID-19 Asthma Panic attacks Impaired glucose tolerance Vitamin D deficiency Obstructive sleep apnea GERD (gastroesophageal reflux disease) Surgical History History of umbilical hernia repair Family History Father Stroke Hypertension Myocardial infarct Mother Hypertension Social History Housing: House Alcohol intake: current Alcohol intake frequency: a few times a week Patient Tobacco Use Status: Never used Tobacco e-Cigarette/Vaping Use: Never Used Second Hand Smoke Exposure: No service: No Current occupational status: employed Current occupation: [employer] Cognitive needs: No Hearing needs: No Vision needs: No Questionnaire Thrive Questionnaire Date Thrive assessed: 10/15/23 JACQUELINE-7 AMB Questionnaire JACQUELINE-7 Date JACQUELINE - 7 assessed: 10/15/23 Source: Developed by Drs. Ayad Soriano, Maryuri Edwards, Rolo Morataya and colleagues, with an educational jose from [employer]. Physical exam (Primary Care) Vital Signs: Last Vital Signs Pulse 67 12/29/23 13:54 BP 180/108 H 12/29/23 13:54 Pulse Ox 98 12/29/23 13:54 Oxygen Delivery Method Room Air 12/29/23 13:54 BMI result Body Mass Index 40.5 Tobacco/Smoking Status: Tobacco use Status Tobacco use date assessed 10/15/23 12/29/23 13:55 Patient Tobacco Use Status Never used Tobacco 12/29/23 13:55 e-Cigarette/Vaping Use Never Used 12/29/23 13:55 Thrive Assessment: Date of Thrive Assessment Date Thrive assessed 10/15/23 12/29/23 13:55 Const General: alert; No acute distress Eyes Conjunctivae: conjunctivae normal Resp Auscultation: clear to auscultation bilaterally Cardio Rate: regular rate Rhythm: regular rhythm GI Inspection: Yes normal to inspection Extrem General: Yes normal to inspection and No edema Assessment and Plan Assessment & Plan (1) Essential hypertension: Code(s): I10 - Essential (primary) hypertension Plan: Continue with blood pressure medication. Decrease salt intake and exercise presently on losartan 50 mg once a day, clonidine 0.1 mg at bedtime with the blood pressure still high advised to use the CPAP regularly and increase the losartan patient states has not been using the metoprolol because of side effects of headaches. (2) Morbid obesity: Code(s): E66.01 - Morbid (severe) obesity due to excess calories Plan: Diet and exercise discussed about ways to get blood pressure under better control with weight down (3) GERD (gastroesophageal reflux disease): Code(s): K21.9 - Gastro-esophageal reflux disease without esophagitis Qualifiers: Esophagitis presence: without esophagitis Qualified Code(s): K21.9 - Gastro-esophageal reflux disease without esophagitis Plan: Avoid the foods that causes that usually spicy foods, tomato products, juices, coffee, soda and foods that your sensitive to. After eating do not lie down, allow 3-4 hours before in lie down. And keep the head of bed above 30 degrees to avoid the acid from going up. (4) Obstructive sleep apnea: Code(s): G47.33 - Obstructive sleep apnea (adult) (pediatric) Plan: Patient admits to not using it regularly and explained how important this to control this sleep apnea. Patient will try but patient also mentions that he is sleeping on his stomach. Discussed about not needing CPAP if lying on the stomach. But patient wishes to continue. Orders: Orders Vitamin B12 and Folate Today I10 - Essential (primary) hypertension Complete Blood Count Auto Diff Today I10 - Essential (primary) hypertension Comprehensive Met. Panel Today I10 - Essential (primary) hypertension Free T4 (Free Thyroxine) Today I10 - Essential (primary) hypertension Lipid Panel Today E78.00 - Pure hypercholesterolemia, unspecified, I10 - Essential (primary) hypertension Thyroid Stimulating Hormone Today I10 - Essential (primary) hypertension Prostate Specific Antigen Scr Today I10 - Essential (primary) hypertension Medications: Changed From losartan 50 mg PO DAILY 30 tabs 2RF To losartan 100 mg PO DAILY 30 tabs 2RF Discontinued metoprolol succinate ER Discontinued Reason: Patient Refused 100 mg PO DAILY 30 ea 2RF Coding Level of Care Code Est Pt Level 4 (61928) Complex EM visit Add On G2211 Diagnoses Essential hypertension I10 Morbid obesity E66.01 Gastroesophageal reflux disease without esophagitis K21.9 Esophagitis presence: without esophagitis Obstructive sleep apnea G47.33
== END 2023-12-29 14:36 | disposition home or self-care (01) ==
PROVIDERS: PCP Internal Medicine; Visit Provider Internal Medicine
DX: I10 Essential (primary) hypertension (principal); E66.01 Morbid (severe) obesity due to excess calories; Z68.41 Body mass index [BMI] 40.0-44.9, adult; K21.9 Gastro-esophageal reflux disease without esophagitis; G47.33 Obstructive sleep apnea (adult) (pediatric)
CPT/HCPCS: 99214

== ENCOUNTER 2024-02-19 08:10 | Outpatient (REF) | payer BC, SELFPAY ==
[2024-02-19 08:18] LABS: MANUAL DIFF FLAG NO
[2024-02-19 09:37] LABS: Basophils Absolute Auto 0.1 X10*3/uL (0.0-0.2); Basophils Percent Auto 1.1 % (0-2); Eosinophils Absolute Auto 0.1 X10*3/uL (0.0-0.4); Eosinophils Percent Auto 2.6 % (0-4); Hematocrit 41.6 % (42.0-52.0); Hemoglobin 14.1 g/dl (14.0-18.0); Imm Gran Abs Auto 0.02 X10*3/uL (0.00-0.03); Imm Gran Pct Auto 0.4 % (0.0-0.4); Lymphocytes Absolute Auto 1.7 X10*3/uL (1.2-4.9); Lymphocytes Percent Auto 37.6 % (20-40); Mean Corpuscular HGB Conc 33.9 g/dl (31.0-36.0); Mean Corpuscular Hemoglobin 27.2 pg (27.0-33.0); Mean Corpuscular Volume 80.2 fL (80.0-98.0); Mean Platelet Volume 10.5 fL (9.4-12.4); Monocytes Absolute Auto 0.5 X10*3/uL (0.1-1.2); Monocytes Percent Auto 9.7 % (2-11); Neutrophils Absolute Auto 2.3 x10*3/uL (2.0-8.3); Neutrophils Percent Auto 48.6 % (45-73); Platelet Count 232 X10*3/uL (160-400); Red Blood Count 5.19 X10*6/uL (4.60-5.80); Red Cell Distribution Width 13.8 % (11.0-16.0); White Blood Count 4.6 X10*3/uL (4.8-10.8)
[2024-02-19 10:43] LABS: Alanine Aminotransferase 28 U/L (0-40); Albumin Level 4.5 g/dL (3.5-5.0); Alkaline Phosphatase 48 U/L (39-117); Anion Gap 11 (12-20); Aspartate Amino Transferase 22 U/L (5-37); Bilirubin Total 0.8 mg/dL (0.0-1.0); Blood Urea Nitrogen 17 mg/dL (9-16); Calcium 9.6 mg/dL (8.4-10.2); Carbon Dioxide 26 mmol/L (22-29); Chloride 108 mmol/L (96-108); Cholesterol 180 mg/dL (<200); Estimated Glomerular Filt Rate > 60; Glucose Random 96 mg/dL (60-115); HDL Cholesterol 51 mg/dL (>40); LDL Cholesterol Calculated 115 mg/dL (<100); Sodium 141 mmol/L (135-145); Total Protein 7.4 g/dL (6.5-8.0); Triglycerides 72 mg/dL (<150)
[2024-02-19 10:48] LABS: Free T4 (Free Thyroxine) 0.81 ng/dL (0.71-1.85); Thyroid Stimulating Hormone 1.95 uIU/mL (0.32-4.0)
[2024-02-19 10:58] LABS: Folate 9.4 ng/mL (> or = 4.0); Vitamin B12 585 pg/mL (200-900)
== END 2024-02-19 08:11 | disposition home or self-care (01) ==
LOC: HO.LAB 08:10
PROVIDERS: PCP Internal Medicine; Visit Provider Internal Medicine
DX: I10 Essential (primary) hypertension (principal); E78.00 Pure hypercholesterolemia, unspecified; Z12.5 Encounter for screening for malignant neoplasm of prostate
CPT/HCPCS: 36415; 80053; 80061; 82607; 82746; 84153; 84439; 84443; 85025

== ENCOUNTER 2024-03-22 13:17 | Outpatient (AMB) | payer BC, SELFPAY ==
[2024-03-22 13:19] VITALS: BP 172/100; PULSE 69; O2SAT 94; BMI 40.7
--- NOTE | 2024-03-22 13:19 | A.OFFPC_ITS ---
Vital Signs 03/22/24 13:19 Height 5 ft 6 in Weight 252 lb BMI 40.7 BP 172/100 H Blood Pressure Location Lt brachial Position Sitting Pulse 69 Pulse Source Pulse Oximeter Pulse Oximetry (%) 94 Oxygen Delivery Method Room Air Intake Visit Reasons: 2 Month F/U Allergies bee pollen [BEE STINGS] Allergy (Unknown, Verified 03/22/24 13:19) UNKNOWN amlodipine Adverse Reaction (Intermediate, Verified 03/22/24 13:19) weakness lisinopril Adverse Reaction (Intermediate, Verified 03/22/24 13:19) weakness Enviromental Allergy (Unknown, Uncoded 03/22/24 13:19) Unknown enviromental Allergy (Unknown, Uncoded 03/22/24 13:19) Unknown SEAFOOD Allergy (Unknown, Uncoded 03/22/24 13:19) NAUSEA & VOMITING Medication List - Last Reconciled 03/22/24 by Vandana Carrera PA-C [AUTO CPAP \6-20 cm H20 Humidified AIR As directed] clonidine HCl 0.1 mg PO BEDTIME 30 days losartan 100 mg PO DAILY Tobacco use date assessed: 10/15/23 Dental Screening Dental Screen Date: 12/29/23 HPI 2 Month F/U HPI Details 58-year-old morbidly obese male having c hronic anemia hypertension last seen by Dr. Trujillo December 2023 coming in for follow up.? At his last visit with Dr. Trujillo losartan 50 mg was adjusted to 100 mg and metoprolol was discontinued. Patient continues to have elevated blood pressures at home with systolic in the 170s and diastolic in the 90s despite increase in losartan at last visit. He does continue to have dizziness associated with sinus pressure and has been taking Krystal daily for symptoms. Has been having increased pain regarding his plantar fasciitis which has been preventing him from exercising. [facility] Medical History (Updated 03/22/24 @ 13:55 by Vandana Carrera PA-C) Fatigue Tinnitus Sinusitis Colon cancer screening Otitis media, left Acute maxillary sinusitis Pain, dental Uncontrolled hypertension Hypertension Obesity Essential hypertension COVID-19 Asthma Panic attacks Impaired glucose tolerance Vitamin D deficiency Obstructive sleep apnea GERD (gastroesophageal reflux disease) Surgical History History of umbilical hernia repair Family History Father Stroke Hypertension Myocardial infarct Mother Hypertension Social History Housing: House Alcohol intake: current Alcohol intake frequency: a few times a week Patient Tobacco Use Status: Never used Tobacco Tobacco use type: Cigarette e-Cigarette/Vaping Use: Never Used Second Hand Smoke Exposure: No service: No Current occupational status: employed Current occupation: [employer] Cognitive needs: No Hearing needs: No Vision needs: No Questionnaire PHQ-9 Over the last 2 weeks, how often have you been bothered by any of the following problems? 1. Little interest or pleasure in doing things: not at all 2. Feeling down, depressed, or hopeless: not at all 3. Trouble falling or staying asleep, or sleeping too much: not at all 4. Feeling tired or having little energy: not at all 5. Poor appetite or overeating: not at all 6. Feeling bad about yourself - or that you are a failure or have let yourself or your family down: not at all 7. Trouble concentrating on things, such as reading the newspaper or watching television: not at all 8. Moving or speaking so slowly that other people could have noticed. Or the opposite - being so fidgety or restless that you have been moving around a lot more than usual: not at all 9. Thoughts that you would be better off or of hurting yourself in some way: not at all Total score: 0 Depression Screening Interpretation: Negative Depression Screening Done: Yes 07804 - PHQ-9 Billing: Yes Source: Developed by Drs. Ayad Soriano, Maryuri Edwards, Rolo Morataay and colleagues, with an educational jose from [employer]. Thrive Questionnaire Date Thrive assessed: 10/15/23 Are you currently unemployed and looking for a job?: Yes AUDIT C Alcohol Use Questionnaire (AUDIT-C) 1. How often do you have a drink containing alcohol?: Never 3. How often do you have six or more drinks on one occasion?: Never Total Score: 0 Score Reviewed/Action Taken: Yes JACQUELINE-7 AMB Questionnaire JACQUELINE-7 Date JACQUELINE - 7 assessed: 10/15/23 Source: Developed by Drs. Ayad Soriano, MaryuriRolo Bustamante and colleagues, with an educational jose from [employer]. Review of Systems Const Denies chills and Denies fever(s) Eyes Reports no additional complaints ENT Details: Tinnitus and lightheadedness associated with increased sinus pressure Card Denies chest pain, Denies leg edema, Reports lightheadedness and Denies dyspnea Resp Denies dyspnea GI Reports no additional complaints Reports no additional complaints Musc Details: Bilateral foot pain and right knee pain Physical exam (Primary Care) Vital Signs: Oxygen Delivery Method Room Air 03/22/24 13:19 BMI result Body Mass Index 40.7 Tobacco/Smoking Status: Tobacco use Status Tobacco use date assessed 10/15/23 12/29/23 13:55 Patient Tobacco Use Status Never used Tobacco 12/29/23 13:55 e-Cigarette/Vaping Use Never Used 12/29/23 13:55 Depression Screening Interpretation: Negative Thrive Assessment: Date of Thrive Assessment Date Thrive assessed 10/15/23 12/29/23 13:55 Const General: cooperative, healthy appearing, comfortable and no acute distress Orientation/consciousness: patient oriented x3 HENMT Head: Yes normocephalic Ears: hearing grossly normal bilaterally General nose exam: Normal external nose present Eyes General: appearance normal, both eyes and all related structures Conjunctivae: conjunctivae normal Neck Neck: Yes full ROM and Yes no lymphadenopathy Resp Effort & Inspection: normal respiratory effort Auscultation: clear to auscultation bilaterally, no crackles, no rales, no rhonchi and no wheezes Cardio Rate: regular rate Rhythm: regular rhythm Skin General skin exam: no rashes or lesions noted Neuro General: patient oriented x3 Gait exam (Neuro): Normal gait present Extrem General: Yes normal to inspection, Yes full ROM and No edema Psych Affect: normal affect Attitude: cooperative Insight: Good insight present (Psych) Judgement: Good judgement present (Psych) Assessment and Plan Assessment & Plan (1) Morbid obesity: Code(s): E66.01 - Morbid (severe) obesity due to excess calories Plan: Discussed with patient importance of healthy diet and regular exercise. (2) Essential hypertension: Code(s): I10 - Essential (primary) hypertension Plan: Patient continues to have elevated blood pressures both in the office as well as at home. He is taking his medications faithfully and has used his CPAP most days of the week. Advised patient to use CPAP nightly as tolerated. Recommend adding hydrochlorothiazide 12.5 mg to med regimen. Advised patient to drink plenty of water while on this medication and monitor for side effects. Discussed with patient blood pressure goals and to reach out to the office if persistent blood pressures outside of these goal ranges. Continue to avoid salt and encouraged healthy diet and regular exercise. (3) Impaired glucose tolerance: Code(s): R73.02 - Impaired glucose tolerance (oral) Plan: Ordered for A1c. Decrease the amount of carbohydrates such as pasta, bread, rice, and potatoes and limit the amount of sweets. Although fruits are generally healthy they should be eaten in moderation as they are still high in sugar. (4) Obstructive sleep apnea: Code(s): G47.33 - Obstructive sleep apnea (adult) (pediatric) Plan: Strongly encouraged patient to use CPAP nightly. (5) GERD (gastroesophageal reflux disease): Code(s): K21.9 - Gastro-esophageal reflux disease without esophagitis Qualifiers: Esophagitis presence: without esophagitis Qualified Code(s): K21.9 - Gastro-esophageal reflux disease without esophagitis Plan: Avoid trigger foods such as citrus, tomato products, soda, caffeine, spicy foods and other foods that may be irritating to your stomach. Avoid laying flat 3-4 hours after eating and elevate the head of the bed 30 degrees to prevent acid from moving into the esophagus. (6) Plantar fasciitis, bilateral: Code(s): M72.2 - Plantar fascial fibromatosis Plan: Patient complains of severe pain and is requesting referral to Podiatry for cortisone injections. Referral placed today and prescription for ibuprofen sent to pharmacy. (7) Lightheadedness: Comment: Patient's history is more consistent with lightheadedness than true vertigo. Code(s): R42 - Dizziness and giddiness Plan: Meclizine prescribed at patient request. Plan Follow up in 6 weeks for re-evaluation. This note was constructed using voice recognition software. While every effort has been made to ensure accuracy and watch train assembler, still areas may have been included sometimes these areas may affect the content or meeting of the given symptoms. Total time spent caring for the patient today was 20 minutes. This includes time spent before the visit reviewing the chart, time spent during the visit, and time spent after the visit and documentation. Orders: Orders Hemoglobin A1c Today Z00.00 - Encounter for general adult medical examination without abnormal findings UA CC w/rflx Micro + Cult Today R35.89 - Other polyuria Referrals Podiatry Referral M72.2 - Plantar fascial fibromatosis Medications: New hydrochlorothiazide 12.5 mg PO DAILY 30 tabs 2RF meclizine 12.5 mg PO ONCE PRN 14 tabs 0RF dizziness ibuprofen 600 mg PO Q8H PRN 20 tabs 0RF pain fluticasone propionate 50 mcg/actuation (Allergy Relief (fluticasone)) administer into each nostril 1 spray intranasal DAILY 16 grams 0RF Coding Level of Care Code Est Pt Level 4 (16649) Diagnoses Morbid obesity E66.01 Essential hypertension I10 Impaired glucose tolerance R73.02 Obstructive sleep apnea G47.33 Gastroesophageal reflux disease without esophagitis K21.9 Esophagitis presence: without esophagitis Plantar fasciitis, bilateral M72.2 Lightheadedness R42
== END 2024-03-22 13:48 | disposition home or self-care (01) ==
PROVIDERS: PCP Internal Medicine
DX: I10 Essential (primary) hypertension (principal); E66.01 Morbid (severe) obesity due to excess calories; R73.02 Impaired glucose tolerance (oral); Z68.41 Body mass index [BMI] 40.0-44.9, adult; G47.33 Obstructive sleep apnea (adult) (pediatric); K21.9 Gastro-esophageal reflux disease without esophagitis; M72.2 Plantar fascial fibromatosis; R42 Dizziness and giddiness

== ENCOUNTER → 2024-03-22 13:17 | Outpatient (BNVA) | payer BC, SELFPAY | PROVIDERS: PCP Internal Medicine | DX: E66.01 Morbid (severe) obesity due to excess calories (principal); Z68.41 Body mass index [BMI] 40.0-44.9, adult; I10 Essential (primary) hypertension; R73.02 Impaired glucose tolerance (oral); G47.33 Obstructive sleep apnea (adult) (pediatric); K21.9 Gastro-esophageal reflux disease without esophagitis; M72.2 Plantar fascial fibromatosis; R42 Dizziness and giddiness ==

== ENCOUNTER 2024-04-08 07:19 | Outpatient (REF) | payer BC, SELFPAY ==
[2024-04-08 07:56] LABS: Appearance Urine Clear; Color Urine Yellow; Glucose Urine UA Negative (Negative); Leukocyte Esterase Urine Negative (Negative); Nitrite Urine Negative (Negative); PH 6.5 (5.0-9.0); Specific Gravity - Urine 1.025 (1.005-1.025); Urine Blood Negative (Negative); Urine Ketones Negative (Negative); Urine Protein Negative (Neg-Trace)
[2024-04-08 08:05] LABS: Estimated Average Glucose 120 mg/dL; Hemoglobin A1C 140.1506 umol/L; Hemoglobin A1c % 5.8 % (<6.0); Total Hemoglobin (HGBA1C) 3537.1872 umol/L
== END 2024-04-08 07:20 | disposition home or self-care (01) ==
LOC: HO.LAB 07:19
PROVIDERS: PCP Internal Medicine
DX: Z00.00 Encounter for general adult medical examination without abnormal findings (principal); R35.89 Other polyuria; Z13.1 Encounter for screening for diabetes mellitus
CPT/HCPCS: 36415; 81003; 83036

== ENCOUNTER 2024-05-03 13:02 | Outpatient (AMB) | payer BC, SELFPAY ==
[2024-05-03 13:06] VITALS: BP 178/108; PULSE 81; O2SAT 98; BMI 40.5
--- NOTE | 2024-05-03 13:06 | MHC.PC.OV ---
Vital Signs 05/03/24 13:06 Height 5 ft 6 in Weight 251 lb BMI 40.5 BP 178/108 H Blood Pressure Location Lt brachial Position Sitting Pulse 81 Pulse Source Pulse Oximeter Pulse Oximetry (%) 98 Oxygen Delivery Method Room Air Intake Visit Reasons: f/u HTN Shredding Machine Tender Required: No Allergies bee pollen [BEE STINGS] Allergy (Unknown, Verified 05/03/24 13:06) UNKNOWN amlodipine Adverse Reaction (Intermediate, Verified 05/03/24 13:06) weakness lisinopril Adverse Reaction (Intermediate, Verified 05/03/24 13:06) weakness Enviromental Allergy (Unknown, Uncoded 05/03/24 13:06) Unknown enviromental Allergy (Unknown, Uncoded 05/03/24 13:06) Unknown SEAFOOD Allergy (Unknown, Uncoded 05/03/24 13:06) NAUSEA & VOMITING Medication List - Last Reconciled 05/03/24 by Vandana Carrera PA-C [AUTO CPAP \6-20 cm H20 Humidified AIR As directed] clonidine HCl 0.1 mg PO BEDTIME 30 days fluticasone propionate 50 mcg/actuation (Allergy Relief (fluticasone)) 1 spray intranasal DAILY hydrochlorothiazide 12.5 mg PO DAILY ibuprofen 600 mg PO Q8H PRN losartan 100 mg PO DAILY meclizine 12.5 mg PO ONCE PRN Tobacco use date assessed: 10/15/23 Dental Screening Dental Screen Date: 12/29/23 HPI f/u HTN HPI Details 59-year-old morbidly obese male having chronic anemia hypertension last seen March 2024 coming in for blood pressure follow up. Patient has been having occasional flare up of vertigo which have been difficult for him to manage. He has not yet taken the Meclizine for these episodes. They are typically brought on by sinus pressure and has been using ashutosh and saline nasal spray without good relief. His blood pressures at home have been elevated and has been taking Clonidine, losartan and HCTZ without good improvement. [facility] Medical History (Updated 03/22/24 @ 13:55 by Vandana Carrera PA-C) Fatigue Tinnitus Sinusitis Colon cancer screening Otitis media, left Acute maxillary sinusitis Pain, dental Uncontrolled hypertension Hypertension Obesity Essential hypertension COVID-19 Asthma Panic attacks Impaired glucose tolerance Vitamin D deficiency Obstructive sleep apnea GERD (gastroesophageal reflux disease) Surgical History History of umbilical hernia repair Family History Father Stroke Hypertension Myocardial infarct Mother Hypertension Social History Housing: House Alcohol intake: current Alcohol intake frequency: a few times a week Patient Tobacco Use Status: Never used Tobacco Tobacco use type: Cigarette e-Cigarette/Vaping Use: Never Used Second Hand Smoke Exposure: No service: No Current occupational status: employed Current occupation: [employer] Cognitive needs: No Hearing needs: No Vision needs: No Questionnaire Thrive Questionnaire Date Thrive assessed: 10/15/23 Are you currently unemployed and looking for a job?: Yes AUDIT C Alcohol Use Questionnaire (AUDIT-C) 1. How often do you have a drink containing alcohol?: Never 3. How often do you have six or more drinks on one occasion?: Never Total Score: 0 Score Reviewed/Action Taken: Yes JACQUELINE-7 AMB Questionnaire JACQUELINE-7 Date JACQUELINE - 7 assessed: 10/15/23 Source: Developed by Drs. Ayad Soriano, Maryuri Edwards, Rolo Morataya and colleagues, with an educational jose from [employer]. Review of Systems Const Denies body aches, Denies chills and Denies fever(s) Eyes Reports no additional complaints ENT Reports vertigo and Reports dizziness Card Denies chest pain, Denies irregular heart rhythm, Denies leg edema, Reports lightheadedness and Denies dyspnea Resp Denies dyspnea GI Denies abdominal pain, Denies dyspepsia, Denies diarrhea and Reports nausea (with vertigo) Reports no additional complaints Musc Details: back pain that radiates left shoulder discomfort Reports back pain Skin/Breast Reports system reviewed and no additional complaints, except as documented Neuro Reports vertigo and Reports dizziness Physical exam (Primary Care) Vital Signs: Last Vital Signs Pulse 81 05/03/24 13:06 BP 178/108 H 05/03/24 13:06 Pulse Ox 98 05/03/24 13:06 Oxygen Delivery Method Room Air 05/03/24 13:06 BMI result Body Mass Index 40.5 Tobacco/Smoking Status: Tobacco use Status Tobacco use date assessed 10/15/23 05/03/24 13:07 Patient Tobacco Use Status Never used Tobacco 05/03/24 13:07 Tobacco use type Cigarette 05/03/24 13:07 e-Cigarette/Vaping Use Never Used 05/03/24 13:07 Thrive Assessment: Date of Thrive Assessment Date Thrive assessed 10/15/23 05/03/24 13:07 Const General: cooperative, healthy appearing, comfortable and no acute distress Orientation/consciousness: patient oriented x3 HENMT Head: Yes normocephalic Ears: hearing grossly normal bilaterally, external ears normal, TM's normal bilaterally and EAC's normal General nose exam: Normal external nose present Face and sinus: Yes normal facial exam and Yes sinuses nontender Mouth: Normal oral and palatal mucosa present and tongue normal Throat: Yes posterior oropharynx normal Eyes General: appearance normal, both eyes and all related structures Conjunctivae: conjunctivae normal Pupils: Equal, round and reactive pupils present EOM: EOMs intact bilaterally and No Nystagmus present Neck Neck: Yes normal visual inspection, Yes full ROM and Yes no lymphadenopathy Chest Chest palpation & inspection: normal inspection of the chest Resp Effort & Inspection: normal respiratory effort Auscultation: clear to auscultation bilaterally, no crackles, no rales, no rhonchi, no wheezes and breath sounds present Cardio Rate: regular rate Rhythm: regular rhythm Peripheral pulses: radial pulses present and dorsalis pedis present GI Inspection: Yes normal to inspection and No Abdominal wall edema Palpation (GI): Soft to palpation, not firm and nontender Auscultation: normal bowel sounds Rectal Exam - Male: Yes deferred General: Yes no CVA tenderness Back/Spine/Pelvis Back: no CVA tenderness Skin General skin exam: no rashes or lesions noted Neuro General: patient oriented x3 Cranial nerves: Yes Equal, round and reactive pupils present, Yes Midline tongue present, Yes Ability to bilaterally elevate shoulders present and No Nystagmus present Gait exam (Neuro): Normal gait present Extrem General: Yes normal to inspection, Yes full ROM, No no pedal edema and No edema Psych Speech and movement: Normal speech and movement present Affect: normal affect Insight: Good insight present (Psych) Judgement: Good judgement present (Psych) Coding Level of Care Code Est Pt Level 4 (31086) Diagnoses Vertigo R42 Morbid obesity E66.01 Essential hypertension I10 Impaired glucose tolerance R73.02 Obstructive sleep apnea G47.33 Gastroesophageal reflux disease without esophagitis K21.9 Esophagitis presence: without esophagitis Assessment & Plan Assessment & Plan (1) Vertigo: Code(s): R42 - Dizziness and giddiness Category: Medical Plan: Patient complaining of vertigo has not used meclizine as prescribed and has been using saline nasal spray and Sudafed without good relief. Referral placed for vestibular therapy. Strongly advised patient to use meclizine as prescribed. (2) Morbid obesity: Code(s): E66.01 - Morbid (severe) obesity due to excess calories Category: Medical Plan: Healthy diet and regular exercise is encouraged. (3) Essential hypertension: Code(s): I10 - Essential (primary) hypertension Category: Medical Plan: Will increase HCTZ to BID. Can consider nephrology referral if blood pressures continue to be uncontrolled. Avoid salt intake and encourage healthy diet and regular exercise. Discussed with patient if blood pressures remain elevated in the next few weeks to reach out to the office and metoprolol 25 mg will be added to medication regimen. Also ordered for ultrasound of the kidneys to evaluate for renal artery stenosis. (4) Impaired glucose tolerance: Code(s): R73.02 - Impaired glucose tolerance (oral) Category: Medical Plan: Decrease the amount of carbohydrates such as pasta, bread, rice, and potatoes and limit the amount of sweets. Although fruits are generally healthy they should be eaten in moderation as they are still high in sugar. A1c is not diabetic number and advised patient to work on lifestyle modification. (5) Obstructive sleep apnea: Code(s): G47.33 - Obstructive sleep apnea (adult) (pediatric) Category: Medical Plan: Uses CPAP faithfully at least 4 hours a night and benefits from this therapy. (6) GERD (gastroesophageal reflux disease): Code(s): K21.9 - Gastro-esophageal reflux disease without esophagitis Category: Medical Qualifiers: Esophagitis presence: without esophagitis Qualified Code(s): K21.9 - Gastro-esophageal reflux disease without esophagitis Plan: Avoid trigger foods such as citrus, tomato products, soda, caffeine, spicy foods and other foods that may be irritating to your stomach. Avoid laying flat 3-4 hours after eating and elevate the head of the bed 30 degrees to prevent acid from moving into the esophagus. Plan This note was constructed using voice recognition software. While every effort has been made to ensure accuracy and granular operator, still areas may have been included sometimes these areas may affect the content or meeting of the given symptoms. Total time spent caring for the patient today was 20 minutes. This includes time spent before the visit reviewing the chart, time spent during the visit, and time spent after the visit and documentation. Orders: Orders PT Evaluation and Treatment Today R42 - Dizziness and giddiness US renal doppler Today I10 - Essential (primary) hypertension US renal BI Today I10 - Essential (primary) hypertension Medications: Changed From hydrochlorothiazide 12.5 mg PO DAILY 30 tabs 2RF To hydrochlorothiazide 12.5 mg PO BID 30 tabs 2RF
== END 2024-05-03 14:03 | disposition home or self-care (01) ==
LOC: HO.HMCH 13:03
PROVIDERS: PCP Internal Medicine
DX: R42 Dizziness and giddiness (principal); E66.01 Morbid (severe) obesity due to excess calories; Z68.41 Body mass index [BMI] 40.0-44.9, adult; I10 Essential (primary) hypertension; R73.02 Impaired glucose tolerance (oral); G47.33 Obstructive sleep apnea (adult) (pediatric); K21.9 Gastro-esophageal reflux disease without esophagitis

== ENCOUNTER → 2024-05-03 13:02 | Outpatient (BNVA) | payer BC, SELFPAY | PROVIDERS: PCP Internal Medicine ==

== ENCOUNTER 2024-05-22 08:32 | Outpatient (REF) | payer BC, SELFPAY ==
--- NOTE | ~2024-05-22 | US_ITS ---
EXAMINATION: RENAL ARTERY DOPPLER ULTRASOUND CLINICAL INFORMATION: Hypertension COMPARISON: Abdominal ultrasounds from 10/30/2020 and 07/16/2011 TECHNIQUE: Renal ultrasound. Doppler ultrasound (spectral analysis and color Doppler) of the renal arteries and aorta were performed. FINDINGS: The right kidney measures 11.5 x 6.4 x 6.8 cm in sagittal, AP and transverse dimensions. The left kidney measures 12.1 x 6.1 x 5.7 cm in sagittal, AP and transverse dimensions. The kidneys show no masses, calculi or hydronephrosis. The corticomedullary differentiation is normal. There is an anechoic cyst in the midpole measuring 0.8 x 0.9 x 0.6 cm RENAL ARTERY VELOCITIES: Right: Proximally: 165 cm/s. Mid: 118 cm/s. Distal: 60.7 cm/s. Left: Proximally: 263 cm/s. Mid: 134 cm/s. Distally: 65.9 cm/s. SEGMENTAL RESISTIVE INDICES: Right: Upper: 0.51 Mid: 0.66 Lower: 0.64 Left: Upper: 0.58 Mid: 0.70 Lower: 0.69 Mid aortic velocity: 90 cm/s. Renal Aortic Ratio: Right: 1.83 Left: 2.92 US/US renal doppler IMPRESSION: 1. Subcentimeter simple cyst in the left kidney. The kidneys are otherwise normal in appearance. 2. Elevated velocity in the proximal left renal artery consistent with mild stenosis, less than 60% Criteria: NORMAL: Renal artery peak systolic velocities < 180 cm/s. Renal aortic ratio < 3.5 Normal renal size. < 60% STENOSIS: Renal artery peak systolic velocities > 180 cm/s. Renal aortic ratio < 3.5 Renal size <2 cm difference between sides. > 60% STENOSIS Renal artery peak systolic velocities > 180 cm/s. Renal aortic ratio > 3.5 Renal size >2 cm difference between sides. Aortic PSV > 140 cm/s with normal renal artery PSV made over estimate severity. Aortic PSV > 100 cm/s with normal renal artery PSV may underestimate severity. Electronically signed by: Abdifatah Caraballo MD 06/20/2024 04:25 PM [facility] Workstation: [email or web address] [id number]
--- NOTE | ~2024-05-22 | US_ITS ---
EXAMINATION: RENAL ARTERY DOPPLER ULTRASOUND CLINICAL INFORMATION: Hypertension COMPARISON: Abdominal ultrasounds from 10/30/2020 and 07/16/2011 TECHNIQUE: Renal ultrasound. Doppler ultrasound (spectral analysis and color Doppler) of the renal arteries and aorta were performed. FINDINGS: The right kidney measures 11.5 x 6.4 x 6.8 cm in sagittal, AP and transverse dimensions. The left kidney measures 12.1 x 6.1 x 5.7 cm in sagittal, AP and transverse dimensions. The kidneys show no masses, calculi or hydronephrosis. The corticomedullary differentiation is normal. There is an anechoic cyst in the midpole measuring 0.8 x 0.9 x 0.6 cm RENAL ARTERY VELOCITIES: Right: Proximally: 165 cm/s. Mid: 118 cm/s. Distal: 60.7 cm/s. Left: Proximally: 263 cm/s. Mid: 134 cm/s. Distally: 65.9 cm/s. SEGMENTAL RESISTIVE INDICES: Right: Upper: 0.51 Mid: 0.66 Lower: 0.64 Left: Upper: 0.58 Mid: 0.70 Lower: 0.69 Mid aortic velocity: 90 cm/s. Renal Aortic Ratio: Right: 1.83 Left: 2.92 US/US renal BI IMPRESSION: 1. Subcentimeter simple cyst in the left kidney. The kidneys are otherwise normal in appearance. 2. Elevated velocity in the proximal left renal artery consistent with mild stenosis, less than 60% Criteria: NORMAL: Renal artery peak systolic velocities < 180 cm/s. Renal aortic ratio < 3.5 Normal renal size. < 60% STENOSIS: Renal artery peak systolic velocities > 180 cm/s. Renal aortic ratio < 3.5 Renal size <2 cm difference between sides. > 60% STENOSIS Renal artery peak systolic velocities > 180 cm/s. Renal aortic ratio > 3.5 Renal size >2 cm difference between sides. Aortic PSV > 140 cm/s with normal renal artery PSV made over estimate severity. Aortic PSV > 100 cm/s with normal renal artery PSV may underestimate severity. Electronically signed by: Abdifatah Caraballo MD 06/20/2024 04:[address] [facility] Workstation: [email or web address] [id number]
== END 2024-05-22 08:33 | disposition home or self-care (01) ==
LOC: HO.HMGCX 08:32
PROVIDERS: PCP Internal Medicine
DX: I10 Essential (primary) hypertension (principal); N28.1 Cyst of kidney, acquired
CPT/HCPCS: 76775; 93975

== ENCOUNTER 2024-06-21 13:22 | Outpatient (AMB) | payer BC, SELFPAY ==
[2024-06-21 13:33] VITALS: BP 160/108; PULSE 75; O2SAT 95; BMI 41.2
--- NOTE | 2024-06-21 13:33 | A.OFFPC_ITS ---
Vital Signs 06/21/24 13:33 Height 5 ft 6 in Weight 255 lb BMI 41.2 BP 160/108 H Blood Pressure Location Lt brachial Position Sitting Pulse 75 Pulse Source Pulse Oximeter Pulse Oximetry (%) 95 Oxygen Delivery Method Room Air Intake Visit Reasons: f/u HTN Allergies bee pollen [BEE STINGS] Allergy (Unknown, Verified 05/03/24 13:06) UNKNOWN amlodipine Adverse Reaction (Intermediate, Verified 05/03/24 13:06) weakness lisinopril Adverse Reaction (Intermediate, Verified 05/03/24 13:06) weakness Enviromental Allergy (Unknown, Uncoded 05/03/24 13:06) Unknown enviromental Allergy (Unknown, Uncoded 05/03/24 13:06) Unknown SEAFOOD Allergy (Unknown, Uncoded 05/03/24 13:06) NAUSEA & VOMITING Medication List - Last Reconciled 06/21/24 by Vandana Carrera PA-C [AUTO CPAP \6-20 cm H20 Humidified AIR As directed] clonidine HCl 0.1 mg PO BEDTIME fluticasone propionate 50 mcg/actuation (Allergy Relief (fluticasone)) 1 spray intranasal DAILY hydrochlorothiazide 12.5 mg PO BID ibuprofen 600 mg PO Q8H PRN losartan 100 mg PO DAILY meclizine 12.5 mg PO ONCE PRN Tobacco use date assessed: 10/15/23 Dental Screening Dental Screen Date: 12/29/23 HPI f/u HTN 2 HPI Details 59-year-old morbidly obese male having c hronic anemia hypertension last seen April 2024 coming in for blood pressure follow up. In review of the notes patient was seen for renal ultrasound which showed mild stenosis in the left side. Patient tells us today he has been monitoring his blood pressures at home and t hey have been elevated similar to his reading in the office today. He does have an appointment with the kidney specialist 07/03/2024 for renal artery stenosis and resistant hypertension. Does also mentioned he has back pain that is chronic in nature and has been worsening with the cold weather primarily at night. States the back pain will typically start while in bed and denies any pain throughout the day. Denies any back pain with exertion, chest pain or shortness of breath. He does mentioned at night he will have occasional shortness of breath after work and uses [id number] inhalers with good relief. COUNTS INCLUDE 234 BEDS AT THE [facility] Medical History (Updated 06/21/24 @ 14:10 by Vandana Carrera PA-C) Fatigue Tinnitus Sinusitis Colon cancer screening Otitis media, left Acute maxillary sinusitis Pain, dental Uncontrolled hypertension Hypertension Obesity Essential hypertension COVID-19 Asthma Panic attacks Impaired glucose tolerance Vitamin D deficiency Obstructive sleep apnea GERD (gastroesophageal reflux disease) Surgical History History of umbilical hernia repair Family History Father Stroke Hypertension Myocardial infarct Mother Hypertension Social History Housing: House Alcohol intake: current Alcohol intake frequency: a few times a week Patient Tobacco Use Status: Never used Tobacco Tobacco use type: Cigarette e-Cigarette/Vaping Use: Never Used Second Hand Smoke Exposure: No service: No Current occupational status: employed Current occupation: [employer] Cognitive needs: No Hearing needs: No Vision needs: No Questionnaire Thrive Questionnaire Date Thrive assessed: 10/15/23 Are you currently unemployed and looking for a job?: Yes JACQUELINE-7 AMB Questionnaire JACQUELINE-7 Date JACQUELINE - 7 assessed: 10/15/23 Source: Developed by Drs. Ayad Soriano, Maryuri Edwards, Rolo Morataya and colleagues, with an educational jose from [employer]. Review of Systems Const Denies body aches, Denies chills, Denies fever(s), Denies headache(s) and Denies poor appetite Eyes Reports no additional complaints ENT Denies dizziness and Denies headache(s) Card Denies chest pain, Denies syncope, Denies edema, Denies irregular heart rhythm, Denies lightheadedness and Denies dyspnea Resp Denies cough and Denies dyspnea GI Denies abdominal pain, Denies constipation, Denies diarrhea, Denies nausea and Denies vomiting Reports no additional complaints Musc Reports no additional complaints and Denies abnormal gait Skin/Breast Reports system reviewed and no additional complaints, except as documented Neuro Denies abnormal gait, Denies dizziness, Denies syncope and Denies headache(s) Psych Reports no additional complaints Physical exam (Primary Care) Vital Signs: Last Vital Signs Pulse 75 06/21/24 13:33 BP 160/108 H 06/21/24 13:33 Pulse Ox 95 06/21/24 13:33 Oxygen Delivery Method Room Air 06/21/24 13:33 BMI result Body Mass Index 41.2 Tobacco/Smoking Status: Tobacco use Status Tobacco use date assessed 10/15/23 06/21/24 13:35 Patient Tobacco Use Status Never used Tobacco 06/21/24 13:35 Tobacco use type Cigarette 06/21/24 13:35 e-Cigarette/Vaping Use Never Used 06/21/24 13:35 Thrive Assessment: Date of Thrive Assessment Date Thrive assessed 10/15/23 06/21/24 13:35 Const General: cooperative, healthy appearing, comfortable and no acute distress Orientation/consciousness: patient oriented x3 HENMT Head: Yes normocephalic Ears: hearing grossly normal bilaterally General nose exam: Normal external nose present Eyes General: appearance normal, both eyes and all related structures Conjunctivae: conjunctivae normal Neck Neck: Yes full ROM and Yes no lymphadenopathy Resp Effort & Inspection: normal respiratory effort Auscultation: clear to auscultation bilaterally, no crackles, no rales, no rhonchi and no wheezes Cardio Rate: regular rate Rhythm: regular rhythm Skin General skin exam: no rashes or lesions noted Neuro General: patient oriented x3 Gait exam (Neuro): Normal gait present Extrem General: Yes normal to inspection, Yes full ROM and No edema Psych Affect: normal affect Attitude: cooperative Insight: Good insight present (Psych) Judgement: Good judgement present (Psych) Office Procedures Flu Questionnaire Does the patient have a severe egg allergy?: No Immunizations Fluarix Triv [id number] (PF) 45 mcg (15 mcg x 3)/0.5 mL IM syringe Performing Provider: Vandana Carrera PA-C [facility] Documented (not given) by: MERLY Demarco on 06/21/24 13:35 Reason Not Given: Patient Refused Coding Level of Care Code Est Pt Level 4 (86581) Diagnoses Renal artery stenosis I70.1 Morbid obesity E66.01 Essential hypertension I10 Impaired glucose tolerance R73.02 Gastroesophageal reflux disease without esophagitis K21.9 Esophagitis presence: without esophagitis Asthma J45.909 Back pain M54.9 Assessment & Plan Assessment & Plan (1) Renal artery stenosis: Code(s): I70.1 - Atherosclerosis of renal artery Category: Medical Plan: Renal ultrasound showed mild stenosis in the left side. Referral was placed to Nephrology today. (2) Morbid obesity: Code(s): E66.01 - Morbid (severe) obesity due to excess calories Category: Medical Plan: Healthy diet and regular exercise is encouraged. (3) Essential hypertension: Code(s): I10 - Essential (primary) hypertension Category: Medical Plan: Continue on current blood pressure medication. Avoid salt intake and encourage healthy diet and regular exercise. We will increase clonidine to b.i.d. dosing for better blood pressure management. Referral placed to Nephrology and has a appointment 07/03/2024. (4) Impaired glucose tolerance: Code(s): R73.02 - Impaired glucose tolerance (oral) Category: Medical Plan: Decrease the amount of carbohydrates such as pasta, bread, rice, and potatoes and limit the amount of sweets. Although fruits are generally healthy they should be eaten in moderation as they are still high in sugar. (5) GERD (gastroesophageal reflux disease): Code(s): K21.9 - Gastro-esophageal reflux disease without esophagitis Category: Medical Qualifiers: Esophagitis presence: without esophagitis Qualified Code(s): K21.9 - Gastro-esophageal reflux disease without esophagitis Plan: Avoid trigger foods such as citrus, tomato products, soda, caffeine, spicy foods and other foods that may be irritating to your stomach. Avoid laying flat 3-4 hours after eating and elevate the head of the bed 30 degrees to prevent acid from moving into the esophagus. (6) Asthma: Code(s): J45.909 - Unspecified asthma, uncomplicated Category: Medical Plan: Patient does have a history of asthma that was marked inactive we will order for pulmonary function testing and sent inhaler for symptom management. (7) Back pain: Code(s): M54.9 - Dorsalgia, unspecified Category: Medical Plan: Patient having chronic back pain that has been worsening over the last several months. Back pain will typically resolve with ibuprofen and is worse at night typically positional. Refilled ibuprofen we will also send for muscle relaxer for nighttime pain. Pain is not exacerbated by exercise. Continue to monitor symptoms at this time. Plan This note was constructed using voice recognition software. While every effort has been made to ensure accuracy and care coordinator, still areas may have been included sometimes these areas may affect the content or meeting of the given symptoms. Total time spent caring for the patient today was 20 minutes. This includes time spent before the visit reviewing the chart, time spent during the visit, and time spent after the visit and documentation. Orders: Orders Influenza [id number] Immunization Today Z23 - Encounter for immunization PFT pulmonary function test Today J45.909 - Unspecified asthma, uncomplicated Medications: New cyclobenzaprine 5 mg PO BEDTIME 14 tabs 0RF albuterol sulfate 90 mcg/actuation 1 inh inhalation QID 6.7 grams 0RF Changed From clonidine HCl 0.1 mg PO BEDTIME 90 tabs 1RF To clonidine HCl 0.1 mg PO BID 180 tabs 1RF Refilled ibuprofen 600 mg PO Q8H PRN 30 tabs 0RF pain
== END 2024-06-21 14:06 | disposition home or self-care (01) ==
PROVIDERS: PCP Internal Medicine
DX: I70.1 Atherosclerosis of renal artery (principal); E66.01 Morbid (severe) obesity due to excess calories; Z68.41 Body mass index [BMI] 40.0-44.9, adult; I10 Essential (primary) hypertension; R73.02 Impaired glucose tolerance (oral); K21.9 Gastro-esophageal reflux disease without esophagitis; J45.909 Unspecified asthma, uncomplicated; M54.9 Dorsalgia, unspecified

== ENCOUNTER 2024-07-03 13:00 | Outpatient (AMB) | payer BC, SELFPAY ==
--- NOTE | 2024-07-03 13:09 | HO.NEPHOV ---
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 Accompanied by: Self / Same As Patient Allergies bee pollen [BEE STINGS] Allergy (Unknown, Verified 07/03/24 13:12) UNKNOWN amlodipine Adverse Reaction (Intermediate, Verified 07/03/24 13:12) weakness lisinopril Adverse Reaction (Intermediate, Verified 07/03/24 13:12) weakness Enviromental Allergy (Unknown, Uncoded 05/03/24 13:06) Unknown enviromental Allergy (Unknown, Uncoded 05/03/24 13:06) Unknown SEAFOOD Allergy (Unknown, Uncoded 05/03/24 13:06) NAUSEA & VOMITING Medication List - Last Reconciled 07/03/24 by Dominik Corley MD albuterol sulfate 90 mcg/actuation 1 inh inhalation QID [AUTO CPAP \6-20 cm H20 Humidified AIR As directed] clonidine HCl 0.1 mg PO BID cyclobenzaprine 5 mg PO BEDTIME fluticasone propionate 50 mcg/actuation (Allergy Relief (fluticasone)) 1 spray intranasal DAILY hydrochlorothiazide 12.5 mg PO BID ibuprofen 600 mg PO Q8H PRN losartan 100 mg PO DAILY meclizine 12.5 mg PO ONCE PRN HPI Comments Details: Tyson is a pleasant 59-year-old man with a history of longstanding hypertension. He has had hypertension for more than 20 years. There is a strong family history of hypertension. He is on 3 antihypertensive medications. However he ran out of hydrochlorothiazide about a week ago. Recently had a Doppler ultrasonogram which showed about 60% stenosis on the right renal artery and hence this consultation. He has a history of obstructive sleep apnea. But he does not use CPAP regularly. He was recently gained about 10 lb. [facility] Medical History (Updated 06/21/24 @ 14:10 by Vandana Carrera PA-C) Fatigue Tinnitus Sinusitis Colon cancer screening Otitis media, left Acute maxillary sinusitis Pain, dental Uncontrolled hypertension Hypertension Obesity Essential hypertension COVID-19 Asthma Panic attacks Impaired glucose tolerance Vitamin D deficiency Obstructive sleep apnea GERD (gastroesophageal reflux disease) Surgical History History of umbilical hernia repair Family History Father Stroke Hypertension Myocardial infarct Mother Hypertension Social History Housing: House Alcohol intake: current Alcohol intake frequency: a few times a week Patient Tobacco Use Status: Never used Tobacco Tobacco use type: Cigarette e-Cigarette/Vaping Use: Never Used Second Hand Smoke Exposure: No service: No Current occupational status: employed Current occupation: [employer] Cognitive needs: No Hearing needs: No Vision needs: No Review of Systems Const Denies fever(s) and Denies weight loss Card Denies chest pain Resp Denies cough and Denies hemoptysis GI Denies abdominal pain, Denies diarrhea and Denies nausea Musc Denies back pain Neuro Denies focal weakness Physical Exam Vital Signs: Last Vital Signs BP 154/90 H 07/03/24 13:12 BMI result Body Mass Index 41.7 Comfortable Neck supple no JVD. Lungs entry equal no rales. Heart S1-S2 heard no gallop or rub. Abdomen soft nontender. Neuro alert awake oriented. No asterixis. Extremities no edema. Results Reviewed Nephrology Results: Hgb 14.1 g/dl (14.0-18.0) 02/19/24 WBC 4.6 X10*3/uL (4.8-10.8) L 02/19/24 Plt Count 232 X10*3/uL (160-400) 02/19/24 Sodium 141 mmol/L (135-145) 02/19/24 Potassium 4.0 mmol/L (3.3-5.1) 02/19/24 Chloride 108 mmol/L (96-108) 02/19/24 Carbon Dioxide 26 mmol/L (22-29) 02/19/24 BUN 17 mg/dL (9-16) H 02/19/24 Creatinine 0.92 mg/dL (0.5-1.4) 02/19/24 Calcium 9.6 mg/dL (8.4-10.2) 02/19/24 Urine Protein Negative mg/dL (Neg-Trace) 04/08/24 Renal US 05/22/24 Assessment & Plan Assessment & Plan (1) Essential hypertension: Code(s): I10 - Essential (primary) hypertension Category: Medical Plan 59-year-old man with obesity and obstructive sleep apnea with resistant hypertension Doppler of renal arteries reported as 60% stenosis of right renal artery. I believe the resistant hypertension is most likely due to underlying obesity and obstructive sleep apnea. Plan Obtain 24 hour ABPM Discontinue hydrochlorothiazide Add Aldactazide 25/25.5 tablet today Needs to stay on low-sodium diet Discussed weight loss He needs to use CPAP regularly. We will optimize medical management. If this fails then I will consider renal angiogram to evaluate renal arteries. Orders: Orders Basic Metabolic Panel 3 Weeks I10 - Essential (primary) hypertension AMB 24 HR B/P Monitor PLACEMENT 07/03/24 I10 - Essential (primary) hypertension Medications: New spironolacton-hydrochlorothiaz 25-25 mg 0.5 tabs PO DAILY 90 tabs 0RF Discontinued hydrochlorothiazide Discontinued Reason: Patient no longer taking 12.5 mg PO BID 180 tabs 1RF Scribe Plan - Not visible on output: obese SHYANNE- not using CPAP regularly add aldactone Coding Level of Care Code New Pt Level 4 (22379) Diagnoses Essential hypertension I10
[2024-07-03 13:12] VITALS: BP 154/90; BMI 41.7
== END 2024-07-03 13:28 | disposition home or self-care (01) ==
PROVIDERS: PCP Internal Medicine; Visit Provider Internal Medicine Hypertension Specialist
DX: I10 Essential (primary) hypertension (principal)
CPT/HCPCS: 99204

== ENCOUNTER 2024-07-15 07:32 | Outpatient (REF) | payer BC, SELFPAY ==
[2024-07-15 08:31] LABS: Anion Gap 11 (12-20); Blood Urea Nitrogen 13 mg/dL (9-16); Calcium 8.4 mg/dL (8.4-10.2); Carbon Dioxide 28 mmol/L (22-29); Chloride 106 mmol/L (96-108); Estimated Glomerular Filt Rate > 60; Glucose Random 101 mg/dL (60-115); Potassium 4.2 mmol/L (3.3-5.1); Sodium 141 mmol/L (135-145)
== END 2024-07-15 07:33 | disposition home or self-care (01) ==
LOC: HO.LAB 07:32
PROVIDERS: PCP Internal Medicine; Visit Provider Internal Medicine Hypertension Specialist
DX: I10 Essential (primary) hypertension (principal)
CPT/HCPCS: 36415; 80048

== ENCOUNTER → 2024-07-17 09:04 | Outpatient (BNVA) | payer BC, SELFPAY | PROVIDERS: PCP Internal Medicine; Visit Provider Internal Medicine Hypertension Specialist ==

== ENCOUNTER 2024-07-18 09:22 | Outpatient (AMB) | payer BC, SELFPAY ==
--- NOTE | 2024-07-18 09:26 | HO.NEPHOV ---
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 Accompanied by: Self / Same As Patient Allergies bee pollen [BEE STINGS] Allergy (Unknown, Verified 07/18/24 09:27) UNKNOWN amlodipine Adverse Reaction (Intermediate, Verified 07/18/24 09:27) weakness lisinopril Adverse Reaction (Intermediate, Verified 07/18/24 09:27) weakness Enviromental Allergy (Unknown, Uncoded 05/03/24 13:06) Unknown enviromental Allergy (Unknown, Uncoded 05/03/24 13:06) Unknown SEAFOOD Allergy (Unknown, Uncoded 05/03/24 13:06) NAUSEA & VOMITING Medication List - Last Reconciled 07/18/24 by Dominik Corley MD albuterol sulfate 90 mcg/actuation 1 inh inhalation QID [AUTO CPAP \6-20 cm H20 Humidified AIR As directed] clonidine HCl 0.1 mg PO BID cyclobenzaprine 5 mg PO BEDTIME fluticasone propionate 50 mcg/actuation (Allergy Relief (fluticasone)) 1 spray intranasal DAILY ibuprofen 600 mg PO Q8H PRN losartan 100 mg PO DAILY meclizine 12.5 mg PO ONCE PRN spironolacton-hydrochlorothiaz 25-25 mg 1 tab PO DAILY HPI Comments Details: Tyson is a pleasant 59-year-old man with a history of longstanding hypertension. He has had hypertension for more than 20 years. There is a strong family history of hypertension. He is on 3 antihypertensive medications. However he ran out of hydrochlorothiazide about a week ago. Recently had a Doppler ultrasonogram which showed about 60% stenosis on the right renal artery and hence this consultation. He has a history of obstructive sleep apnea. But he does not use CPAP regularly. He was recently gained about 10 lb. 07/18/24 Underwent ABPM Using CPAP on and off [facility] Medical History (Updated 06/21/24 @ 14:10 by Vandana Carrera PA-C) Fatigue Tinnitus Sinusitis Colon cancer screening Otitis media, left Acute maxillary sinusitis Pain, dental Uncontrolled hypertension Hypertension Obesity Essential hypertension COVID-19 Asthma Panic attacks Impaired glucose tolerance Vitamin D deficiency Obstructive sleep apnea GERD (gastroesophageal reflux disease) Surgical History History of umbilical hernia repair Family History Father Stroke Hypertension Myocardial infarct Mother Hypertension Social History Housing: House Alcohol intake: current Alcohol intake frequency: a few times a week Patient Tobacco Use Status: Never used Tobacco Tobacco use type: Cigarette e-Cigarette/Vaping Use: Never Used Second Hand Smoke Exposure: No service: No Current occupational status: employed Current occupation: [employer] Cognitive needs: No Hearing needs: No Vision needs: No Physical Exam Comfortable Neck supple no JVD. Lungs entry equal no rales. Heart S1-S2 heard no gallop or rub. Abdomen soft nontender. Neuro alert awake oriented. No asterixis. Extremities no edema. Results Reviewed Nephrology Results: Sodium 141 mmol/L (135-145) 07/15/24 Potassium 4.2 mmol/L (3.3-5.1) 07/15/24 Chloride 106 mmol/L (96-108) 07/15/24 Carbon Dioxide 28 mmol/L (22-29) 07/15/24 BUN 13 mg/dL (9-16) 07/15/24 Creatinine 0.95 mg/dL (0.5-1.4) 07/15/24 Calcium 8.4 mg/dL (8.4-10.2) 07/15/24 Renal US 05/22/24 Assessment & Plan Assessment & Plan (1) Essential hypertension: Code(s): I10 - Essential (primary) hypertension Category: Medical Plan 59-year-old man with obesity and obstructive sleep apnea with resistant hypertension Doppler of renal arteries reported as 60% stenosis of right renal artery. I believe the resistant hypertension is most likely due to underlying obesity and obstructive sleep apnea. ABPM shows resistant HTN with minimal dipping Plan INCREASE Aldactazide 25/25 tablet today Needs to stay on low-sodium diet Discussed weight loss He needs to use CPAP regularly. Monitor BP at home We will optimize medical management. If this fails then I will consider renal angiogram to evaluate renal arteries. Medications: New spironolacton-hydrochlorothiaz 25-25 mg 1 tab PO DAILY 90 tabs 1RF Scribe Plan - Not visible on output: obese SHYANNE- not using CPAP regularly add aldactone Coding Level of Care Code Est Pt Level 4 (16098) Diagnoses Essential hypertension I10
== END 2024-07-18 09:39 | disposition home or self-care (01) ==
PROVIDERS: PCP Internal Medicine; Visit Provider Internal Medicine Hypertension Specialist
DX: I10 Essential (primary) hypertension (principal)
CPT/HCPCS: 99214

== ENCOUNTER → 2024-07-18 09:22 | Outpatient (BNVA) | payer BC, SELFPAY | PROVIDERS: PCP Internal Medicine; Visit Provider Internal Medicine Hypertension Specialist | DX: I10 Essential (primary) hypertension (principal); I1A.0 Resistant hypertension; E66.9 Obesity, unspecified; G47.33 Obstructive sleep apnea (adult) (pediatric); I70.1 Atherosclerosis of renal artery; Z79.899 Other long term (current) drug therapy | CPT/HCPCS: 93786 ==

== ENCOUNTER 2024-08-22 13:53 | Outpatient (AMB) | payer BC, SELFPAY ==
--- NOTE | 2024-08-22 13:55 | A.OFFPC_ITS ---
Vital Signs 08/22/24 13:57 Height 5 ft 6 in Weight 252 lb 2 oz BMI 40.7 BP 150/82 H Blood Pressure Location Lt brachial Position Sitting Pulse 72 Pulse Source Pulse Oximeter Temp 98.2 F Temp Source Temporal Artery Scan Pulse Oximetry (%) 98 Oxygen Delivery Method Room Air Intake Visit Reasons: f/u HTN Intake Note: Patient is here to follow up on HTN. 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: Not Required per policy Accompanied by: Self / Same As Patient Allergies bee pollen [BEE STINGS] Allergy (Unknown, Verified 08/22/24 13:57) UNKNOWN amlodipine Adverse Reaction (Intermediate, Verified 08/22/24 13:57) weakness lisinopril Adverse Reaction (Intermediate, Verified 08/22/24 13:57) weakness Enviromental Allergy (Unknown, Uncoded 08/22/24 13:57) Unknown SEAFOOD Allergy (Unknown, Uncoded 05/03/24 13:06) NAUSEA & VOMITING Medication List - Last Reconciled 08/22/24 by Vandana Carrera PA-C albuterol sulfate 90 mcg/actuation 1 inh inhalation QID [AUTO CPAP \6-20 cm H20 Humidified AIR As directed] clonidine HCl 0.1 mg PO BID cyclobenzaprine 5 mg PO BEDTIME fluticasone propionate 50 mcg/actuation (Allergy Relief (fluticasone)) 1 spray intranasal DAILY ibuprofen 600 mg PO Q8H PRN losartan 100 mg PO DAILY spironolacton-hydrochlorothiaz 25-25 mg 1 tab PO DAILY Tobacco use date assessed: 08/22/24 Dental Screening Dental Screen Date: 08/22/24 Did you have a dental visit in the last 12 months?: No Did you have a dental problem in the last 6 months where you did not have access to dental care?: No Was dental information given to patient?: Patient has dentist HPI f/u HTN HPI Details 59-year-old morbidly obese male having c hronic anemia, hypertension last seen 06/2024 coming in for follow up on blood pressure. In review of the notes, patient was seen by Nephrology 07/18/2024 Doppler of the renal arteries showing 60% stenosis of the right renal artery plan to increase spironolactone- hydrochlorothiazide and utilize CPAP regularly. Patient tells us today he monitors his blood pressures at home which have been up and down. He will have elevated values and low values and denies any symptoms at either end. He has been working on weight loss as well. Imaging identified narrowing of renal arteries, and surgical intervention with stenting is not planned. Obstructive sleep apnea management with CPAP is inconsistent due to discomfort, including anxiety over suffocation. [facility] Medical History Fatigue Tinnitus Sinusitis Colon cancer screening Otitis media, left Acute maxillary sinusitis Pain, dental Uncontrolled hypertension Hypertension Obesity Essential hypertension COVID-19 Asthma Panic attacks Impaired glucose tolerance Vitamin D deficiency Obstructive sleep apnea GERD (gastroesophageal reflux disease) Surgical History History of umbilical hernia repair Family History Father Stroke Hypertension Myocardial infarct Mother Hypertension Social History Housing: House Alcohol intake: current Alcohol intake frequency: a few times a week Patient Tobacco Use Status: Never used Tobacco Tobacco use type: Cigarette e-Cigarette/Vaping Use: Never Used Second Hand Smoke Exposure: No service: No Current occupational status: employed Current occupation: [employer] Cognitive needs: No Hearing needs: No Vision needs: No Questionnaire PHQ-9 Over the last 2 weeks, how often have you been bothered by any of the following problems? 1. Little interest or pleasure in doing things: not at all 2. Feeling down, depressed, or hopeless: not at all 3. Trouble falling or staying asleep, or sleeping too much: not at all 4. Feeling tired or having little energy: not at all 5. Poor appetite or overeating: not at all 6. Feeling bad about yourself - or that you are a failure or have let yourself or your family down: not at all 7. Trouble concentrating on things, such as reading the newspaper or watching television: not at all 8. Moving or speaking so slowly that other people could have noticed. Or the opposite - being so fidgety or restless that you have been moving around a lot more than usual: not at all 9. Thoughts that you would be better off or of hurting yourself in some way: not at all Total score: 0 Depression Screening Interpretation: Negative Depression Screening Done: Yes Source: Developed by Drs. Ayad Soriano, Maryuri Edwards, Rolo Morataya and colleagues, with an educational jose from [employer]. Thrive Questionnaire Date Thrive assessed: 08/22/24 I am a: Patient What is your living situation today?: I have a steady place to live Within the past 12 months, did the food you bought not last and you didn't have the money to get more?: Never true Within the past 12 months, did you worry whether your food would run out before you got money to buy more?: Never true Do you have trouble paying for medicines?: No Do you have trouble getting transportation to medical appointments?: No Do you have trouble paying your heating and electricity bill?: No Do you have trouble taking care of your child, family member or friend?: No Do you have trouble with day-to-day activities such as bathing, preparing meals, shopping, managing finances, etc.?: No Are you currently unemployed and looking for a job?: Yes Are you interested in more education?: No Please select the resources that you would like help with: None Currently or been in a relationship where the following occur: No concerns re ported THRIVE Score: 0 AUDIT C Alcohol Use Questionnaire (AUDIT-C) 2. How many drinks containing alcohol do you have on a typical day when you are drinking?: 1 or 2 3. How often do you have six or more drinks on one occasion?: Never Total Score: 0 JACQUELINE-7 AMB Questionnaire JACQUELINE-7 Date JACQUELINE - 7 assessed: 08/22/24 Feeling nervous, anxious, or on edge: 0 = Not at all Not being able to stop or control worryin = Not at all Worrying too much about different things: 0 = Not at all Trouble relaxin = Not at all Being so restless that it is hard to sit still: 0 = Not at all Becoming easily annoyed or irritable: 0 = Not at all Feeling afraid as if something awful might happen: 0 = Not at all Total JACQUELINE-7 score (0-4 normal; 5-9 mild; 10-14 moderate; 15-21 severe): 0 Source: Developed by Maryuri Sylvester.W. Jerry, Rolo Morataya and colleagues, with an educational jose from [employer]. Review of Systems Const Denies body aches, Denies chills, Denies fever(s), Denies headache(s) and Denies poor appetite Eyes Reports no additional complaints ENT Denies dysphagia, Denies dizziness, Denies headache(s) and Denies odynophagia Card Denies chest pain, Denies syncope, Denies edema, Denies irregular heart rhythm, Denies lightheadedness and Denies dyspnea Resp Denies cough and Denies dyspnea GI Denies abdominal pain, Denies constipation, Denies dysphagia, Denies diarrhea, Denies nausea, Denies odynophagia and Denies vomiting Reports no additional complaints Musc Reports no additional complaints and Denies abnormal gait Skin/Breast Reports system reviewed and no additional complaints, except as documented Neuro Denies abnormal gait, Denies dizziness, Denies syncope and Denies headache(s) Psych Reports no additional complaints Physical exam (Primary Care) Vital Signs: Last Vital Signs Temp 98.2 F 08/22/24 13:57 Pulse 72 08/22/24 13:57 BP 150/82 H 08/22/24 13:57 Pulse Ox 98 08/22/24 13:57 Oxygen Delivery Method Room Air 08/22/24 13:57 BMI result Body Mass Index 40.7 Tobacco/Smoking Status: Tobacco use Status Tobacco use date assessed 08/22/24 08/22/24 13:58 Patient Tobacco Use Status Never used Tobacco 08/22/24 13:58 Tobacco use type Cigarette 08/22/24 13:58 e-Cigarette/Vaping Use Never Used 08/22/24 13:58 PHQ-9: PHQ-9 Score PHQ-9: Total score 0 08/22/24 13:58 Depression Screening Interpretation: Negative Thrive Assessment: Date of Thrive Assessment Date Thrive assessed 08/22/24 08/22/24 13:58 Currently or been in a relationship where the following occur: No concerns reported Const General: cooperative, healthy appearing, comfortable and no acute distress Orientation/consciousness: patient oriented x3 HENMT Head: Yes normocephalic Ears: hearing grossly normal bilaterally General nose exam: Normal external nose present Eyes General: appearance normal, both eyes and all related structures Conjunctivae: conjunctivae normal Neck Neck: Yes full ROM and Yes no lymphadenopathy Resp Effort & Inspection: normal respiratory effort Auscultation: clear to auscultation bilaterally, no crackles, no rales, no rhonchi and no wheezes Cardio Rate: regular rate Rhythm: regular rhythm Skin General skin exam: no rashes or lesions noted Neuro General: patient oriented x3 Gait exam (Neuro): Normal gait present Extrem General: Yes normal to inspection, Yes full ROM and No edema Psych Affect: normal affect Attitude: cooperative Insight: Good insight present (Psych) Judgement: Good judgement present (Psych) Coding Level of Care Code Est Pt Level 3 (26001) Diagnoses Asthma J45.909 Renal artery stenosis I70.1 Morbid obesity E66.01 Essential hypertension I10 Obstructive sleep apnea G47.33 Impaired glucose tolerance R73.02 Assessment & Plan Assessment & Plan (1) Asthma: Code(s): J45.909 - Unspecified asthma, uncomplicated Category: Medical Plan: Asthma currently controlled on present medications. Continue on albuterol as needed. Avoid triggers such as allergies. (2) Renal artery stenosis: Code(s): I70.1 - Atherosclerosis of renal artery Category: Medical Plan: Patient found to have right renal artery stenosis 60%. Continue to follow with Nephrology and continue with good management of blood pressure (3) Morbid obesity: Code(s): E66.01 - Morbid (severe) obesity due to excess calories Category: Medical Plan: Healthy diet and regular exercise is encouraged. (4) Essential hypertension: Code(s): I10 - Essential (primary) hypertension Category: Medical Plan: Continue on current blood pressure medication. Avoid salt intake and encourage healthy diet and regular exercise. Patient had recent increase of spironolactone-hydrochlorothiazide tablet by Nephrology. Has a appointment coming up with Nephrology as well The patient?s hypertension will be managed with ongoing blood pressure monitoring, CPAP usage for obstructive sleep apnea, and continued enhancement of weight loss strategies. Current medications should be adhered to as recommended. (5) Obstructive sleep apnea: Code(s): G47.33 - Obstructive sleep apnea (adult) (pediatric) Category: Medical Plan: Strongly advised to continue using CPAP nightly. (6) Impaired glucose tolerance: Code(s): R73.02 - Impaired glucose tolerance (oral) Category: Medical Plan: Decrease the amount of carbohydrates such as pasta, bread, rice, and potatoes and limit the amount of sweets. Although fruits are generally healthy they should be eaten in moderation as they are still high in sugar. Plan This note was constructed using voice recognition software. While every effort has been made to ensure accuracy and costumed character, still areas may have been included sometimes these areas may affect the content or meeting of the given symptoms. Total time spent caring for the patient today was 20 minutes. This includes time spent before the visit reviewing the chart, time spent during the visit, and time spent after the visit and documentation.
[2024-08-22 13:57] VITALS: BP 150/82; PULSE 72; TEMP 36.8; O2SAT 98; BMI 40.7
== END 2024-08-22 14:23 | disposition home or self-care (01) ==
PROVIDERS: PCP Internal Medicine
DX: J45.909 Unspecified asthma, uncomplicated (principal); I70.1 Atherosclerosis of renal artery; E66.01 Morbid (severe) obesity due to excess calories; Z68.33 Body mass index [BMI] 33.0-33.9, adult; I10 Essential (primary) hypertension; G47.33 Obstructive sleep apnea (adult) (pediatric); R73.02 Impaired glucose tolerance (oral)

== ENCOUNTER → 2024-08-22 13:53 | Outpatient (BNVA) | payer BC, SELFPAY | PROVIDERS: PCP Internal Medicine ==

== ENCOUNTER 2024-08-29 13:45 | Outpatient (AMB) | payer BC, SELFPAY ==
[2024-08-29 13:47] VITALS: BP 130/64; PULSE 78; O2SAT 96; BMI 40.3
--- NOTE | 2024-08-29 13:47 | HO.NEPHOV_ITS ---
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 Accompanied by: Self / Same As Patient Allergies bee pollen [BEE STINGS] Allergy (Unknown, Verified 08/29/24 13:49) UNKNOWN amlodipine Adverse Reaction (Intermediate, Verified 08/29/24 13:49) weakness lisinopril Adverse Reaction (Intermediate, Verified 08/29/24 13:49) weakness Enviromental Allergy (Unknown, Uncoded 08/22/24 13:57) Unknown SEAFOOD Allergy (Unknown, Uncoded 05/03/24 13:06) NAUSEA & VOMITING Medication List - Last Reconciled 08/29/24 by Dominik Corley MD albuterol sulfate 90 mcg/actuation 1 inh inhalation QID [AUTO CPAP \6-20 cm H20 Humidified AIR As directed] clonidine HCl 0.1 mg PO BID cyclobenzaprine 5 mg PO BEDTIME fluticasone propionate 50 mcg/actuation (Allergy Relief (fluticasone)) 1 spray intranasal DAILY ibuprofen 600 mg PO Q8H PRN losartan 100 mg PO DAILY spironolacton-hydrochlorothiaz 25-25 mg 1 tab PO DAILY HPI Comments Details: Tyson is a pleasant 59-year-old man with a history of longstanding hypertension. He has had hypertension for more than 20 years. There is a strong family history of hypertension. He is on 3 antihypertensive medications. However he ran out of hydrochlorothiazide about a week ago. Recently had a Doppler ultrasonogram which showed about 60% stenosis on the right renal artery and hence this consultation. He has a history of obstructive sleep apnea. But he does not use CPAP regularly. He was recently gained about 10 lb. 07/18/24 Underwent ABPM Using CPAP on and off 08/29/24 Using CPAP regularly Takes meds as prescribed [facility] Medical History Fatigue Tinnitus Sinusitis Colon cancer screening Otitis media, left Acute maxillary sinusitis Pain, dental Uncontrolled hypertension Hypertension Obesity Essential hypertension COVID-19 Asthma Panic attacks Impaired glucose tolerance Vitamin D deficiency Obstructive sleep apnea GERD (gastroesophageal reflux disease) Surgical History History of umbilical hernia repair Family History Father Stroke Hypertension Myocardial infarct Mother Hypertension Social History Housing: House Alcohol intake: current Alcohol intake frequency: a few times a week Patient Tobacco Use Status: Never used Tobacco Tobacco use type: Cigarette e-Cigarette/Vaping Use: Never Used Second Hand Smoke Exposure: No service: No Current occupational status: employed Current occupation: [employer] Cognitive needs: No Hearing needs: No Vision needs: No Physical Exam Vital Signs: Last Vital Signs Pulse 78 08/29/24 13:47 BP 130/64 08/29/24 13:47 Pulse Ox 96 08/29/24 13:47 Oxygen Delivery Method Room Air 08/29/24 13:47 BMI result Body Mass Index 40.3 Comfortable Neck supple no JVD. Lungs entry equal no rales. Heart S1-S2 heard no gallop or rub. Abdomen soft nontender. Neuro alert awake oriented. No asterixis. Extremities no edema. Results Reviewed Nephrology Results: Sodium 141 mmol/L (135-145) 07/15/24 Potassium 4.2 mmol/L (3.3-5.1) 07/15/24 Chloride 106 mmol/L (96-108) 07/15/24 Carbon Dioxide 28 mmol/L (22-29) 07/15/24 BUN 13 mg/dL (9-16) 07/15/24 Creatinine 0.95 mg/dL (0.5-1.4) 07/15/24 Calcium 8.4 mg/dL (8.4-10.2) 07/15/24 Assessment & Plan Assessment & Plan (1) Essential hypertension: Code(s): I10 - Essential (primary) hypertension Category: Medical Plan 59-year-old man with obesity and obstructive sleep apnea with resistant hypertension Doppler of renal arteries reported as 60% stenosis of right renal artery. I believe the resistant hypertension is most likely due to underlying obesity and obstructive sleep apnea. ABPM shows resistant HTN with minimal dipping Plan Keep Aldactazide tablet Needs to stay on low-sodium diet Discussed weight loss He needs to use CPAP regularly. Monitor BP at home We will optimize medical management. Hold off on renal angiogram to evaluate renal arteries for now Orders: Orders Basic Metabolic Panel 6 Months I10 - Essential (primary) hypertension Medications: New spironolacton-hydrochlorothiaz 25-25 mg 1 tab PO DAILY 90 tabs 0RF Coding Level of Care Code Est Pt Level 4 (01340) Diagnoses Essential hypertension I10
== END 2024-08-29 13:59 | disposition home or self-care (01) ==
PROVIDERS: PCP Internal Medicine; Visit Provider Internal Medicine Hypertension Specialist
DX: I10 Essential (primary) hypertension (principal)
CPT/HCPCS: 99214

== ENCOUNTER 2024-10-10 08:20 | Outpatient (AMB) | payer BC, SELFPAY ==
--- NOTE | 2024-10-10 08:22 | MHC.PC.OV ---
Vital Signs 10/10/24 08:23 Height 5 ft 6 in Weight 245 lb 9.6 oz BMI 39.6 BP 130/82 Blood Pressure Location Lt brachial Position Sitting Respiration 20 Pulse 72 Pulse Source Pulse Oximeter Temp 97.1 F Temp Source Temporal Artery Scan Pulse Oximetry (%) 98 Oxygen Delivery Method Room Air Intake Visit Reasons: discuss hernia Database Engineer Required: No Accompanied by: Self / Same As Patient Allergies bee pollen [BEE STINGS] Allergy (Unknown, Verified 10/10/24 08:23) UNKNOWN amlodipine Adverse Reaction (Intermediate, Verified 10/10/24 08:23) weakness lisinopril Adverse Reaction (Intermediate, Verified 10/10/24 08:23) weakness Enviromental Allergy (Unknown, Uncoded 10/10/24 08:23) Unknown SEAFOOD Allergy (Unknown, Uncoded 10/10/24 08:23) NAUSEA & VOMITING Tobacco use date assessed: 10/10/24 Dental Screening Dental Screen Date: 10/10/24 Did you have a dental visit in the last 12 months?: Yes Did you have a dental problem in the last 6 months where you did not have access to dental care?: No Was dental information given to patient?: Patient has dentist HPI discuss hernia HPI Details PAtient feels bloated since March and points to RUQ and alsomid epigastric. patient did start using the CPAP 2 years ago and using more now. [facility] Medical History Fatigue Tinnitus Sinusitis Colon cancer screening Otitis media, left Acute maxillary sinusitis Pain, dental Uncontrolled hypertension Hypertension Obesity Essential hypertension COVID-19 Asthma Panic attacks Impaired glucose tolerance Vitamin D deficiency Obstructive sleep apnea GERD (gastroesophageal reflux disease) Surgical History History of umbilical hernia repair Family History Father Stroke Hypertension Myocardial infarct Mother Hypertension Social History Housing: House Alcohol intake: current Alcohol intake frequency: a few times a week Patient Tobacco Use Status: Never used Tobacco Tobacco use type: Cigarette e-Cigarette/Vaping Use: Never Used Second Hand Smoke Exposure: No service: No Current occupational status: employed Current occupation: Maintenance Cognitive needs: No Hearing needs: No Vision needs: No Questionnaire PHQ-9 Over the last 2 weeks, how often have you been bothered by any of the following problems? 1. Little interest or pleasure in doing things: not at all 2. Feeling down, depressed, or hopeless: not at all 3. Trouble falling or staying asleep, or sleeping too much: not at all 4. Feeling tired or having little energy: not at all 5. Poor appetite or overeating: not at all 6. Feeling bad about yourself - or that you are a failure or have let yourself or your family down: not at all 7. Trouble concentrating on things, such as reading the newspaper or watching television: not at all 8. Moving or speaking so slowly that other people could have noticed. Or the opposite - being so fidgety or restless that you have been moving around a lot more than usual: not at all 9. Thoughts that you would be better off or of hurting yourself in some way: not at all Total score: 0 Depression Screening Interpretation: Negative Depression Screening Done: Yes 26733 - PHQ-9 Billing: Yes Source: Developed by Drs. Ayad Soriano, Maryuri Edwards, Rolo Morataya and colleagues, with an educational jose from [employer]. Thrive Questionnaire Date Thrive assessed: 10/10/24 I am a: Patient What is your living situation today?: I have a steady place to live Within the past 12 months, did the food you bought not last and you didn't have the money to get more?: Never true Within the past 12 months, did you worry whether your food would run out before you got money to buy more?: Never true Do you have trouble paying for medicines?: No Do you have trouble getting transportation to medical appointments?: No Do you have trouble paying your heating and electricity bill?: No Do you have trouble taking care of your child, family member or friend?: No Do you have trouble with day-to-day activities such as bathing, preparing meals, shopping, managing finances, etc.?: No Are you currently unemployed and looking for a job?: No Are you interested in more education?: No Please select the resources that you would like help with: None Currently or been in a relationship where the following occur: No concerns reported THRIVE Score: 0 AUDIT C Alcohol Use Questionnaire (AUDIT-C) 1. How often do you have a drink containing alcohol?: Monthly or less 2. How many drinks containing alcohol do you have on a typical day when you are drinking?: 1 or 2 3. How often do you have six or more drinks on one occasion?: Never Total Score: 1 JACQUELINE-7 AMB Questionnaire JACQUELINE-7 Date JACQUELINE - 7 assessed: 10/10/24 Feeling nervous, anxious, or on edge: 0 = Not at all Not being able to stop or control worryin = Not at all Worrying too much about different things: 0 = Not at all Trouble relaxin = Not at all Being so restless that it is hard to sit still: 0 = Not at all Becoming easily annoyed or irritable: 0 = Not at all Feeling afraid as if something awful might happen: 0 = Not at all Total JACQUELINE-7 score (0-4 normal; 5-9 mild; 10-14 moderate; 15-21 severe): 0 Source: Developed by Drs. Ayad Soriano, Maryuri Edwards, Rolo Morataya and colleagues, with an educational jose from [employer]. Physical exam (Primary Care) Vital Signs: Last Vital Signs Temp 97.1 F 10/10/24 08:23 Pulse 72 10/10/24 08:23 Resp 20 10/10/24 08:23 BP 130/82 10/10/24 08:23 Pulse Ox 98 10/10/24 08:23 Oxygen Delivery Method Room Air 10/10/24 08:23 BMI result Body Mass Index 39.6 Tobacco/Smoking Status: Tobacco use Status Tobacco use date assessed 10/10/24 10/10/24 08:31 Patient Tobacco Use Status Never used Tobacco 10/10/24 08:31 Tobacco use type Cigarette 10/10/24 08:31 e-Cigarette/Vaping Use Never Used 10/10/24 08:31 PHQ-9: PHQ-9 Score PHQ-9: Total score 0 10/10/24 08:31 Depression Screening Interpretation: Negative Thrive Assessment: Date of Thrive Assessment Date Thrive assessed 10/10/24 10/10/24 08:31 Currently or been in a relationship where the following occur: No concerns reported Const General: alert; No acute distress Eyes Conjunctivae: conjunctivae normal Resp Auscultation: clear to auscultation bilaterally Cardio Rate: regular rate Rhythm: regular rhythm GI Inspection: Yes normal to inspection Extrem Other: Examination of the foot showing interdigital areas on bilateral feet with white tissue skin and moistness no erythema pulse equal and strong both feet tender on the heel. Coding Level of Care Code Est Pt Level 4 (35532) Complex EM visit Add On G2211 Diagnoses Essential hypertension I10 Obstructive sleep apnea G47.33 Gastroesophageal reflux disease without esophagitis K21.9 Esophagitis presence: without esophagitis Impaired glucose tolerance R73.02 Obesity (BMI 30-39.9) E66.9 Abdominal bloating R14.0 Plantar fasciitis, bilateral M72.2 Tinea pedis B35.3 Additional Codes PHQ-9 - 19316 - PHQ-9 Billing: Yes ([id number]) Assessment & Plan Assessment & Plan (1) Essential hypertension: Code(s): I10 - Essential (primary) hypertension Category: Medical Plan: Patient has been seeing Nephrology and the on losartan 100 mg once a day and placed on spironolactone hydrochlorothiazide 25/25 once a day patient does have some mild right renal artery stenosis. (2) Obstructive sleep apnea: Code(s): G47.33 - Obstructive sleep apnea (adult) (pediatric) Category: Medical Plan: Continue to use the CPAP more than 4 hours a night and benefits from this. (3) GERD (gastroesophageal reflux disease): Code(s): K21.9 - Gastro-esophageal reflux disease without esophagitis Category: Medical Qualifiers: Esophagitis presence: without esophagitis Qualified Code(s): K21.9 - Gastro-esophageal reflux disease without esophagitis Plan: Avoid the foods that causes that usually spicy foods, tomato products, juices, coffee, soda and foods that your sensitive to. After eating do not lie down, allow 3-4 hours before in lie down. And keep the head of bed above 30 degrees to avoid the acid from going up. (4) Impaired glucose tolerance: Code(s): R73.02 - Impaired glucose tolerance (oral) Category: Medical Plan: Decrease the amount of carbohydrate intake, pasta, bread, rice and potatoes are all sugar and that is aside from all the sweet stuff, remember that fruits are good but they are Sweet also. (5) Obesity (BMI 30-39.9): Code(s): E66.9 - Obesity, unspecified Category: Medical Plan: Diet and exercise (6) Abdominal bloating: Code(s): R14.0 - Abdominal distension (gaseous) Category: Medical (7) Plantar fasciitis, bilateral: Code(s): M72.2 - Plantar fascial fibromatosis Category: Medical (8) Tinea pedis: Code(s): B35.3 - Tinea pedis Category: Medical Plan History of Present Illness The patient is a 59-year-old male presenting for follow-up on various chronic health conditions. He previously noted a weight loss of 5 pounds and reports a history of chronic diseases which includes obstructive sleep apnea, gastroesophageal reflux disease (GERD), and impaired glucose tolerance. There is a history of hypogonadism, hepatic steatosis, obesity, and essential hypertension. The patient is also treated for asthma and currently experiences athlete's foot and plantar fasciitis. The patient uses CPAP for his sleep apnea and reports using it for over 4 hours nightly, experiencing improvement with its use. He has ongoing management with nephrology, due to mild renal artery stenosis, and has been prescribed losartan along with a spironolactone-hydrochlorothiazide combination, which has been effective in controlling blood pressure but has side effects like leg cramps due to the diuretic nature of the medication. Past lab work indicated normal blood counts with mild leukopenia and blood sugar elevations indicative of impaired glucose tolerance while cholesterol and other markers such as PSA and thyroid were normal. Additionally, the patient struggles with gastrointestinal complaints exacerbated by his GERD and dietary sensitivities. Concerns include bloating and gas, potentially worsened by air ingestion with CPAP use. He has addressed his athlete's foot sporadically with antifungal cream and plans to modify dietary choices to manage his glucose levels. Health Maintenance Social History - Patient reports limited water intake and has been advised to increase it to six to eight glasses daily. - Dietary changes include focusing on potassium-rich foods while managing glucose intake carefully. - The patient's use of bread is limited due to reported gastrointestinal issues. - Patient is managing athlete's foot prevention with topical antifungal and sanitization practices. Review of Systems - Respiratory: Reports persistent cough. - Gastrointestinal: Reports gas. - Musculoskeletal: Reports cramps and foot pain. Physical Exam - Musculoskeletal- Right foot examined, discomfort noted. Results - Labs: Blood work from February with normal counts, mild leukopenia, blood sugar mildly elevated, normal renal function and electrolytes. - Last Cologuard test in December 2021, results normal. Plan Management of the patient's chronic conditions including obstructive sleep apnea with CPAP therapy will continue. Medications for hypertension will be reviewed due to associated side effects. The patient should increase water intake to mitigate muscle cramps and include more potassium in his diet. Topical antifungal creams will be used for fungal infection, with diet adjustments recommended for GERD and glucose intolerance. Continued monitoring of blood pressure, glucose levels and addressing plantar fasciitis with possible podiatry consultation were noted. An ultrasound evaluation is arranged to further assess kidney health. Follow-up is scheduled in February to evaluate the patient's progress and adjust the management plan as necessary. Patient was informed and verbally consented to the use of an ambient scribe for clinic note documentation during this visit. Discussion Notes I discussed the importance of maintaining CPAP use for effective management of sleep apnea and addressed concerns regarding its side effects, such as gas. Strategies to mitigate these effects were explored, including potential medication to help relieve gas. We also reviewed the patient's hypertension management, specifically addressing side effects related to spironolactone and hydrochlorothiazide, emphasizing the importance of hydration and potassium intake. Dietary modifications were highlighted to manage GERD and glucose intolerance. I recommended ongoing monitoring and scheduled an ultrasound to rule out other concerns with a follow-up in February for a comprehensive review of the patient's chronic conditions and health maintenance strategies. Patient Instructions - Continue using CPAP for more than 4 hours nightly. - Increase water intake to 6-8 glasses daily. - Consume potassium-rich foods like spinach and avocados. - Use clotrimazole cream as directed for athlete's foot. - Report any worsening symptoms to the clinic promptly. - Attend the scheduled ultrasound and follow-up appointment in February. - Adhere to dietary advice for managing glucose levels and GERD. - Monitor blood pressure and report any significant changes. Orders: Orders US abdomen complete Today R14.0 - Abdominal distension (gaseous), R79.89 - Other specified abnormal findings of blood chemistry Comprehensive Met. Panel Today I10 - Essential (primary) hypertension Hemoglobin A1c Today I10 - Essential (primary) hypertension Thyroid Stimulating Hormone Today I10 - Essential (primary) hypertension Prostate Specific Antigen Scr Today I10 - Essential (primary) hypertension Complete Blood Count Auto Diff Today I10 - Essential (primary) hypertension Free T4 (Free Thyroxine) Today I10 - Essential (primary) hypertension Lipid Panel Today E78.00 - Pure hypercholesterolemia, unspecified, I10 - Essential (primary) hypertension Vitamin B12 and Folate Today I10 - Essential (primary) hypertension Magnesium Today I10 - Essential (primary) hypertension UA CC w/rflx Micro + Cult Today I10 - Essential (primary) hypertension, R30.0 - Dysuria Referrals Podiatry Referral M72.2 - Plantar fascial fibromatosis Medications: New simethicone 180 mg PO BID PRN 60 caps 0RF abdominal distention R14.0 - Abdominal distension (gaseous) clotrimazole 1% 1 appl topical BID 4 weeks 45 grams 1RF B35.3 - Tinea pedis
[2024-10-10 08:23] VITALS: BP 130/82; PULSE 72; RESP 20; TEMP 36.2; O2SAT 98; BMI 39.6
== END 2024-10-10 08:59 | disposition home or self-care (01) ==
LOC: HO.HMCH 08:20
PROVIDERS: PCP Internal Medicine; Visit Provider Internal Medicine
DX: I10 Essential (primary) hypertension (principal); G47.33 Obstructive sleep apnea (adult) (pediatric); E66.9 Obesity, unspecified; Z68.39 Body mass index [BMI] 39.0-39.9, adult; K21.9 Gastro-esophageal reflux disease without esophagitis; R73.02 Impaired glucose tolerance (oral); R14.0 Abdominal distension (gaseous); M72.2 Plantar fascial fibromatosis; B35.3 Tinea pedis

== ENCOUNTER → 2024-10-10 08:20 | Outpatient (BNVA) | payer BC, SELFPAY | PROVIDERS: PCP Internal Medicine; Visit Provider Internal Medicine | DX: I10 Essential (primary) hypertension (principal); G47.33 Obstructive sleep apnea (adult) (pediatric); K21.9 Gastro-esophageal reflux disease without esophagitis; R73.02 Impaired glucose tolerance (oral); E66.9 Obesity, unspecified; R14.0 Abdominal distension (gaseous); M72.2 Plantar fascial fibromatosis; B35.3 Tinea pedis | CPT/HCPCS: 96127 ==

== ENCOUNTER 2024-11-20 08:50 | Outpatient (REF) | payer BC, SELFPAY ==
--- NOTE | ~2024-11-20 | US_ITS ---
CLINICAL HISTORY: R79.89 - Other specified abnormal findings of blood chemistry US abdomen complete Comparison: None Findings: The visualized pancreas is normal. The aorta and inferior vena cava are normal caliber. The liver is normal in size and mildly increased in echotexture. There is no intrahepatic bile duct dilatation. The common duct is 4 mm in diameter. The gallbladder is normal. There is no sonographic Loya sign. The main portal vein is antegrade. The right kidney is 10.9 cm in length. Small cortical calcification. The left kidney is 11.3 cm in length. Vascular calcification noted. The spleen is normal. No ascites. IMPRESSION: No acute process. Mild hepatic steatosis. This document has been electronically signed by: Wilton Garcia MD on 11/20/2024 10:47:18
--- OUTSIDE RECORDS SUMMARY | 2024-11-20 08:59 | XMS_ITS | Patient Health Record ---
[facility] Address [address] [place] [address] Care Team Providers Care Brass Burnisher Name Role Phone Carlos Enrique Trujillo Primary Care Provider Rickie Ryder Unavailable [phone] Allergies Allergen (clinical drug ingredient) Drug/Non Drug Allergy documented on EMR Reaction Allergy Type Onset Date Status amlodipine Amlodipine Unknown Drug Allergy Activ e Bee Sting Unknown Allergy Active lisinopril Lisinopril Unknown Drug Allergy Activ e Pollen Pollen Unknown Allergy Active Shellfish (FN) Shellfish-derived Products Unknown Drug Allergy Active Reason For Referral No Information Medications Medication SIG (Take, Route, Fr equency, Duration) Notes Start Date End Date Status hydrALAZINE HCl Acti ve Social History Alcohol Screen Question Answer Notes Did you have a drink contain ing alcohol in the past year? Yes How often did you have a dri nk containing alcohol in the past year? 2 to 3 times a week (3 points) Points 3 Interpretation Negative Encounters Encounter Location Date [facility] [phone] [facility]/14/2024 Rickie Bardales Plan Of Treatment No Information Insurance Providers Payer Name Payer Address Payer Phone Subscriber Number Group Number Insured Name Patient Relationship to Insured Coverage Start Date Coverage End Date [facility] [address] [place] [address] [id number] Tyson Herman Self - patient is the insured Medical (General) History Medical History History ICD Code asthma covid-19 Reflux ( GERD) Hypertension Obesity Sleep apnea Panic disorder Vitamin D deficiency Surgical History Surgery Date(Month/Year) umbilical hernia repair
--- OUTSIDE RECORDS SUMMARY | 2024-11-20 08:59 | XMS_ITS ---
Author Organization [facility] Address [address] [place] [phone] Care Team Providers Care Director Compensation Name Role Phone Carlos Enrique Trujillo Primary Care Provider Rickie Ryder Unavailable [phone] REASON FOR VISIT Cx 01/08/25 ROUGE SIFTER appt Encounters En[facility] [id number] [facility]/14[facility] Rickie Bardales Plan Of Treatment No Information Progress Notes * Terry ARTISOB:1964 (59 yo M)Acc No.[id number]:11/14/2024 Patient:?Tyson ARTIS :1965???Age:59 Y???Sex:Male Address:[address] [place] [address], [address] * true * Date:? Generated for Printi ng/Willowg/eTransmitting on:?11/20/2024 08:58 AM EDT
== END 2024-11-20 08:51 | disposition home or self-care (01) ==
LOC: HO.US 08:50
PROVIDERS: PCP Internal Medicine; Visit Provider Internal Medicine
DX: R79.89 Other specified abnormal findings of blood chemistry (principal); R14.0 Abdominal distension (gaseous)
CPT/HCPCS: 76700

== ENCOUNTER → 2024-11-20 08:53 | Outpatient (BNV) | payer BC, SELFPAY | PROVIDERS: PCP Internal Medicine; Visit Provider Radiology Vascular & Interventional Radiology | DX: R79.89 Other specified abnormal findings of blood chemistry (principal) | CPT/HCPCS: 76700 ==

== ENCOUNTER 2025-02-03 07:19 | Outpatient (REF) | payer BC, SELFPAY ==
[2025-02-03 07:45] LABS: MANUAL DIFF FLAG NO
[2025-02-03 08:33] LABS: Hematocrit 41.7 % (42.0-52.0); Hemoglobin 13.5 g/dl (14.0-18.0); Imm Gran Abs Auto 0.00 X10*3/uL (0.00-0.03); Imm Gran Pct Auto 0.0 % (0.0-0.4); Lymphocytes Absolute Auto 1.7 X10*3/uL (1.2-4.9); Mean Corpuscular HGB Conc 32.4 g/dl (31.0-36.0); Mean Corpuscular Hemoglobin 26.3 pg (27.0-33.0); Mean Corpuscular Volume 81.1 fL (80.0-98.0); NRBC Abs Auto 0.000 X10*3/uL (0.0-0.012); NRBC Pct Auto 0.0 /100WBC (0.0-0.2); Platelet Count 235 X10*3/uL (160-400); Red Blood Count 5.14 X10*6/uL (4.60-5.80); White Blood Count 4.4 X10*3/uL (4.8-10.8)
[2025-02-03 08:52] LABS: Appearance Urine Clear; Glucose Urine UA Negative (Negative); PH 6.5 (5.0-9.0); Specific Gravity - Urine 1.025 (1.005-1.025)
[2025-02-03 09:12] LABS: Alanine Aminotransferase 35 U/L (0-40); Albumin Level 4.5 g/dL (3.5-5.0); Alkaline Phosphatase 46 U/L (39-117); Anion Gap 13 (12-20); Aspartate Amino Transferase 32 U/L (5-37); Blood Urea Nitrogen 18 mg/dL (9-16); Calcium 9.1 mg/dL (8.4-10.2); Carbon Dioxide 30 mmol/L (22-29); Chloride 102 mmol/L (96-108); Cholesterol 168 mg/dL (<200); Estimated Glomerular Filt Rate > 60; HDL Cholesterol 44 mg/dL (>40); Magnesium 1.9 mg/dL (1.6-2.6); Potassium 3.9 mmol/L (3.3-5.1); Sodium 141 mmol/L (135-145); Total Protein 7.1 g/dL (6.5-8.0); Triglycerides 83 mg/dL (<150)
[2025-02-03 09:32] LABS: Free T4 (Free Thyroxine) 0.90 ng/dL (0.71-1.85); Thyroid Stimulating Hormone 3.32 uIU/mL (0.32-4.0)
[2025-02-03 09:39] LABS: Folate 11.8 ng/mL (> or = 4.0); Vitamin B12 454 pg/mL (200-900)
[2025-02-03 11:20] LABS: Hemoglobin A1C 157.1812 umol/L; Total Hemoglobin (HGBA1C) 3610.6008 umol/L
== END 2025-02-03 07:20 | disposition home or self-care (01) ==
LOC: HO.LAB 07:19
PROVIDERS: PCP Internal Medicine; Visit Provider Internal Medicine
DX: I10 Essential (primary) hypertension (principal); E78.00 Pure hypercholesterolemia, unspecified; R30.0 Dysuria; Z12.5 Encounter for screening for malignant neoplasm of prostate
CPT/HCPCS: 36415; 80053; 80061; 81003; 82607; 82746; 83036; 83735; 84153; 84439; 84443; 85025

== ENCOUNTER 2025-02-22 07:09 | Outpatient (AMB) | payer BC, SELFPAY ==
[2025-02-22 07:15] VITALS: BP 160/90; PULSE 67; RESP 15; TEMP 36.8; O2SAT 97; BMI 41.0
--- NOTE | 2025-02-22 07:15 | AM.OFFWIN_ITS ---
Intake Vital Signs 02/22/25 07:15 Height 5 ft 6 in Weight 254 lb BMI 41.0 BP 160/90 H Blood Pressure Location Lt brachial Position Sitting Respiration 15 Pulse 67 Pulse Source Pulse Oximeter Temp 98.2 F Temp Source Oral Pulse Oximetry (%) 97 Oxygen Delivery Method Room Air Intake Visit Reasons: EP-rt ear infection Intake Note: Pt is here today c/o Rt ear pain and sinus congestion x3days Patient Tobacco Use Status: Never used Tobacco Allergies bee pollen (BEE STINGS) Allergy (Unknown, Verified 02/22/25 07:17) UNKNOWN amlodipine Adverse Reaction (Intermediate, Verified 02/22/25 07:17) weakness lisinopril Adverse Reaction (Intermediate, Verified 02/22/25 07:17) weakness Enviromental Allergy (Unknown, Uncoded 02/22/25 07:17) Unknown SEAFOOD Allergy (Unknown, Uncoded 02/22/25 07:17) NAUSEA & VOMITING HPI HPI Comments History of Present Illness Details History - The patient is a 60-year-old male pres enting with vertigo, ear pain, and hearing loss of the right ear. - Vertigo has been a recurrent issue, ex acerbated by changes in the ear canal due to obstruction. - Ear pain and discharge began last nigh t, with the patient experiencing a clogged sensation in the right ear. - The patient reports a history of dizzi ness, particularly when performing activities such as cutting grass, which he thinks may be related to allergies. Physical Exam General: Cooperative, healthy appearing, comfortable and no acute distress Orientation/consciousness: Patient oriented x3 Limitations: No limitations Head: Normal to inspection Ears: Hearing grossly normal bilaterally, external ears normal and TM normal left, TM with blockage of cerumen on right Nose: Normal external nose present, Normal nares present and No nasal discharge present Face and sinus: Normal facial exam and Yes sinuses nontender Mouth: Normal oral and palatal mucosa present and moist mucous membranes Eyes: Appearance normal, both eyes and all related structures Neck: Normal visual inspection, full ROM Respiratory: Normal respiratory effort, able to speak in complete sentences, no respiratory distress, not tachypneic, no tripod positioning and no use of accessory muscles Skin: No rashes or lesions noted Neuro: Patient oriented x3 Extremities: Normal to inspection and Yes no clubbing, cyanosis or edema [facility] Medical History Fatigue Tinnitus Sinusitis Colon cancer screening Otitis media, left Acute maxillary sinusitis Pain, dental Uncontrolled hypertension Hypertension Obesity Essential hypertension COVID-19 Asthma Panic attacks Impaired glucose tolerance Vitamin D deficiency Obstructive sleep apnea GERD (gastroesophageal reflux disease) Surgical History History of umbilical hernia repair Family History Father Stroke Hypertension Myocardial infarct Mother Hypertension Social History Housing: House Alcohol intake: current Alcohol intake frequency: a few times a week Patient Tobacco Use Status: Never used Tobacco Tobacco use type: Cigarette e-Cigarette/Vaping Use: Never Used Second Hand Smoke Exposure: No service: No Current occupational status: employed Current occupation: Maintenance Cognitive needs: No Hearing needs: No Vision needs: No Review of Systems Const All systems reviewed & are unremarkable except as noted in HPI and below Physical Exam Vital Signs: Last Vital Signs Temp 98.2 F 02/22/25 07:15 Pulse 67 02/22/25 07:15 Resp 15 02/22/25 07:15 BP 160/90 H 02/22/25 07:15 Pulse Ox 97 02/22/25 07:15 Oxygen Delivery Method Room Air 02/22/25 07:15 BMI result Body Mass Index 41.0 Office Procedures Cerumen Removal From which ear canal was the cerumen removed: right Removal: irrigation and cerumen loop/spoon Notes: patient tolerated procedure well, no complications and ear canal clear [id number] Irrigation/Lavage Assessment & Plan Assessment & Plan (1) Otitis externa of right ear: Code(s): H60.91 - Unspecified otitis externa, right ear Qualifiers: Chronicity: acute Otitis externa type: diffuse Qualified Code(s): H60.311 - Diffuse otitis externa, right ear Plan: Plan - Irrigated right ear, removed ceruemen and questionable material, with residual OE infection. - Administer ear drops four times a day to address the Otitis Externa. - Advise the patient to avoid using Q-tips to prevent further obstruction or injury to the ear canal. - Recommend follow-up if symptoms persist or worsen after treatment. Patient was informed and verbally consented to the use of an ambient scribe for clinic note documentation during this visit (2) Excessive cerumen in right ear canal: Code(s): H61.21 - Impacted cerumen, right ear Plan: - removed to reveal residual OE Orders: Orders AMB Cerumen Removal Today H61.21 - Impacted cerumen, right ear Medications: New xcvruodr-igahmtinu-JJ 3.5-10,000-1 mg/mL-unit/mL-% 4 drps otic (ear) right QID 10 mL 0RF 7 days Coding Level of Care Code Est Pt Level 3 (37837) Diagnoses Acute diffuse otitis externa of right ear H60.311 Chronicity: acute Otitis externa type: diffuse Excessive cerumen in right ear canal H61.21 CPT Codes Office Procedure - CPT: 20138-Dma Irrigation/Lavage ([id number])
== END 2025-02-22 07:36 | disposition home or self-care (01) ==
PROVIDERS: PCP Internal Medicine; Visit Provider Physician Assistant
DX: H60.311 Diffuse otitis externa, right ear (principal); H61.21 Impacted cerumen, right ear

== ENCOUNTER → 2025-02-22 07:09 | Outpatient (BNVA) | payer BC, SELFPAY | PROVIDERS: PCP Internal Medicine; Visit Provider Physician Assistant | DX: R42 Dizziness and giddiness (principal); H60.311 Diffuse otitis externa, right ear; H61.21 Impacted cerumen, right ear; I10 Essential (primary) hypertension | CPT/HCPCS: 69210 ==

== ENCOUNTER 2025-02-22 12:01 | Outpatient (AMB) | payer BC, SELFPAY ==
[2025-02-22 12:05] VITALS: BP 130/80; PULSE 72; O2SAT 98; BMI 41.0
--- NOTE | 2025-02-22 12:05 | HO.NEPHOV_ITS ---
Vital Signs 02/22/25 12:05 Height 5 ft 6 in Weight 254 lb BMI 41.0 BP 130/80 Blood Pressure Location Lt brachial Position Sitting Pulse 72 Pulse Source Pulse Oximeter Pulse Oximetry (%) 98 Oxygen Delivery Method Room Air Intake Visit Reasons: Essential hypertension/ Conf Lead Cook Required: No Accompanied by: Self / Same As Patient Allergies bee pollen (BEE STINGS) Allergy (Unknown, Verified 02/22/25 12:06) UNKNOWN amlodipine Adverse Reaction (Intermediate, Verified 02/22/25 12:06) weakness lisinopril Adverse Reaction (Intermediate, Verified 02/22/25 12:06) weakness Enviromental Allergy (Unknown, Uncoded 02/22/25 07:17) Unknown SEAFOOD Allergy (Unknown, Uncoded 02/22/25 07:17) NAUSEA & VOMITING Medication List - Last Reconciled 02/22/25 by Dominik Corley MD albuterol sulfate 90 mcg/actuation 1 inh inhalation QID [AUTO CPAP \6-20 cm H20 Humidified AIR As directed] clonidine HCl 0.1 mg PO BID clotrimazole 1% 1 appl topical BID 4 weeks fluticasone propionate 50 mcg/actuation (Allergy Relief (fluticasone)) 1 spray intranasal DAILY ibuprofen 600 mg PO Q8H PRN losartan 100 mg PO DAILY cspboerc-fdpbedcae-LQ 3.5-10,000-1 mg/mL-unit/mL-% 4 drps otic (ear) right QID 7 days spironolacton-hydrochlorothiaz 25-25 mg 1 tab PO DAILY HPI Comments Details: Tyson is a pleasant 59-year-old man with a history of longstanding hypertension. He has had hypertension for more than 20 years. There is a strong family history of hypertension. He is on 3 antihypertensive medications. However he ran out of hyd rochlorothiazide about a week ago. Recently had a Doppler ultrasonogram which showed about 60% stenosis on the right renal artery and hence this consultation. He has a history of obstructive sleep apnea. But he does not use CPAP regularly. He was recently gained about 10 lb. 07/18/24 Underwent ABPM ;Using CPAP on and off 08/29/24 Using CPAP regularly ; Takes meds as prescribed 02/22/25 The patient is a 60-year-old male presenting for follow-up of hypertension and management of obstructive sleep apnea. Hypertension is managed with clonidine, losartan, and spironolactone, with stable blood pressure. Obstructive sleep apnea is managed with CPAP therapy, with no breathing issues reported. Current acute otitis media is noted. BMI is 41, with weight management advised to reduce medication dependency. Kidney function and potassium levels are stable, with advice to monitor salt intake and maintain activity. MEDICAL HISTORY: - Hypertension - Obstructive sleep apnea MEDICATIONS: - Clonidine: for hypertension, taken twice daily - Losartan: for hypertension, taken once daily - Spironolactone: for hypertension, taken once daily SOCIAL HISTORY: - Exercise: Walks frequently at work and engages in some exercise. - Diet: High intake of carbohydrates such as bread, rice, pasta, and pizza. DIAGNOSTIC RESULTS: - Labs: Potassium level at 3.9 mmol/L, stable kidney function [facility] Medical History Fatigue Tinnitus Sinusitis Colon cancer screening Otitis media, left Acute maxillary sinusitis Pain, dental Uncontrolled hypertension Hypertension Obesity Essential hypertension COVID-19 Asthma Panic attacks Impaired glucose tolerance Vitamin D deficiency Obstructive sleep apnea GERD (gastroesophageal reflux disease) Surgical History History of umbilical hernia repair Family History Father Stroke Hypertension Myocardial infarct Mother Hypertension Social History Housing: House Alcohol intake: current Alcohol intake frequency: a few times a week Patient Tobacco Use Status: Never used Tobacco Tobacco use type: Cigarette e-Cigarette/Vaping Use: Never Used Second Hand Smoke Exposure: No service: No Current occupational status: employed Current occupation: Maintenance Cognitive needs: No Hearing needs: No Vision needs: No Physical Exam Vital Signs: Last Vital Signs Pulse 72 02/22/25 12:05 BP 130/80 02/22/25 12:05 Pulse Ox 98 02/22/25 12:05 Oxygen Delivery Method Room Air 02/22/25 12:05 BMI result Body Mass Index 41.0 Comfortable Neck supple no JVD. Lungs entry equal no rales. Heart S1-S2 heard no gallop or rub. Abdomen soft nontender. Neuro alert awake oriented. No asterixis. Extremities no edema. Results Reviewed Nephrology Results: Hgb, (14.0-18.0) 13.5 g/dl L 02/03/25 WBC, (4.8-10.8) 4.4 X10*3/uL L 02/03/25 Plt Count, (160-400) 235 X10*3/uL 02/03/25 Sodium, (135-145) 141 mmol/L 02/03/25 Potassium, (3.3-5.1) 3.9 mmol/L 02/03/25 Chloride, (96-108) 102 mmol/L 02/03/25 Carbon Dioxide, (22-29) 30 mmol/L H 02/03/25 BUN, (9-16) 18 mg/dL H 02/03/25 Creatinine, (0.5-1.4) 0.92 mg/dL 02/03/25 Calcium, (8.4-10.2) 9.1 mg/dL Δ 02/03/25 Urine Protein, (Neg-Trace) Negative mg/dL 02/03/25 Renal US 05/22/24 Assessment & Plan Assessment & Plan (1) Essential hypertension: Code(s): I10 - Essential (primary) hypertension Category: Medical Plan 60-year-old man with obesity and obstructive sleep apnea with resistant hypertension Doppler of renal arteries reported as 60% stenosis of right renal artery. I believe the resistant hypertension is most likely due to underlying obesity and obstructive sleep apnea. ABPM shows resistant HTN with minimal dipping Plan Keep Aldactazide 25/25 tablet Needs to stay on low-sodium diet He needs to use CPAP regularly. Monitor BP at home We will optimize medical management. Hold off on renal angiogram to evaluate renal arteries for now discussed weight loss Goal to lose 0.5 to 1 lb per week Low carb diet Increase Activity Orders: Orders Basic Metabolic Panel 6 Months I10 - Essential (primary) hypertension Coding Level of Care Code Est Pt Level 4 (69178) Diagnoses Essential hypertension I10
== END 2025-02-22 12:14 | disposition home or self-care (01) ==
LOC: HO.HKA 12:02
PROVIDERS: PCP Internal Medicine; Visit Provider Internal Medicine Hypertension Specialist
DX: I1A.0 Resistant hypertension (principal)
CPT/HCPCS: 99214

== ENCOUNTER 2025-02-23 12:52 | Outpatient (AMB) | payer BC, SELFPAY ==
--- OUTSIDE RECORDS SUMMARY | 2025-01-08 10:00 | XMS_ITS ---
Author Organization [facility] Address [address] [place] [phone] Care Team Providers Care Web Systems Developer Name Role Phone Carlos Enrique Trujillo Primary Care Provider Unavailabl Rickie Mosley Unavailable [phone] Encounters Encounter Location Date [facility] [place] [address] [place] [phone] 01/08/2025 Rickie Bardales Plan Of Treatment No Information Progress Notes * Terry ARTISOB:1964 (60 yo M)Acc No.[id number]:01/08/2025 Progress Notes Patient: Kim GAXIOLA Armando Provider: Korina Bardales DPM :1965 A ge:59 Y S ex:Male Date:01/08/2025 Address:[address] [place], [place] [id number] Pcp:Carlos Enrique Trujillo Subjective: * Chief Complaints: * * Medical History: Objective: * Vitals: Assessment: Plan: * Treatment: * Images: * The named appointment provid er may or may not be the originator of this progress note, and it is not deemed complete until electronically signed by the appointment provider. Sign off status: Pending * Provider: Korina Bardales DPM Date: 01/08/2025 Generated for Misty bolivar/Reed/Richelleitting on: 02/23/2025 12:54 PM EDT
[2025-02-23 12:56] VITALS: BP 140/78; PULSE 84; TEMP 36.3; O2SAT 99; BMI 40.7
--- NOTE | 2025-02-23 12:56 | A.OFFPC_ITS ---
Vital Signs 02/23/25 12:56 Height 5 ft 6 in Weight 252 lb 6 oz BMI 40.7 BP 140/78 H Blood Pressure Location Lt brachial Position Sitting Pulse 84 Pulse Source Pulse Oximeter Temp 97.3 F Temp Source Temporal Artery Scan Pulse Oximetry (%) 99 Oxygen Delivery Method Room Air Intake Visit Reasons: f/u obesity Allergies bee pollen (BEE STINGS) Allergy (Unknown, Verified 02/23/25 13:02) UNKNOWN amlodipine Adverse Reaction (Intermediate, Verified 02/23/25 13:02) weakness lisinopril Adverse Reaction (Intermediate, Verified 02/23/25 13:02) weakness Enviromental Allergy (Unknown, Uncoded 02/23/25 13:02) Unknown SEAFOOD Allergy (Unknown, Uncoded 02/23/25 13:02) NAUSEA & VOMITING Tobacco use date assessed: 02/23/25 Dental Screening Dental Screen Date: 02/23/25 Did you have a dental visit in the last 12 months?: Yes Did you have a dental problem in the last 6 months where you did not have access to dental care?: No Was dental information given to patient?: Patient has dentist [facility] Medical History Fatigue Tinnitus Sinusitis Colon cancer screening Otitis media, left Acute maxillary sinusitis Pain, dental Uncontrolled hypertension Hypertension Obesity Essential hypertension COVID-19 Asthma Panic attacks Impaired glucose tolerance Vitamin D deficiency Obstructive sleep apnea GERD (gastroesophageal reflux disease) Surgical History History of umbilical hernia repair Family History Father Stroke Hypertension Myocardial infarct Mother Hypertension Social History Housing: House Alcohol intake: current Alcohol intake frequency: a few times a week Patient Tobacco Use Status: Never used Tobacco e-Cigarette/Vaping Use: Never Used Second Hand Smoke Exposure: No service: No Current occupational status: employed Current occupation: Maintenance Cognitive needs: No Hearing needs: No Vision needs: No Questionnaire PHQ-9 Over the last 2 weeks, how often have you been bothered by any of the following problems? 1. Little interest or pleasure in doing things: not at all 2. Feeling down, depressed, or hopeless: not at all 3. Trouble falling or staying asleep, or sleeping too much: not at all 4. Feeling tired or having little energy: not at all 5. Poor appetite or overeating: not at all 6. Feeling bad about yourself - or that you are a failure or have let yourself or your family down: not at all 7. Trouble concentrating on things, such as reading the newspaper or watching television: not at all 8. Moving or speaking so slowly that other people could have noticed. Or the opposite - being so fidgety or restless that you have been moving around a lot more than usual: not at all 9. Thoughts that you would be better off or of hurting yourself in some way: not at all Total score: 0 Depression Screening Interpretation: Negative Depression Screening Done: Yes Source: Developed by Drs. Ayad Soriano, Maryuri Edwards, Rolo Morataya and colleagues, with an educational jose from [employer]. Thrive Questionnaire Date Thrive assessed: 10/10/24 I am a: Patient What is your living situation today?: I have a steady place to live Within the past 12 months, did the food you bought not last and you didn't have the money to get more?: Never true Within the past 12 months, did you worry whether your food would run out before you got money to buy more?: Never true Do you have trouble paying for medicines?: No Do you have trouble getting transportation to medical appointments?: No Do you have trouble paying your heating and electricity bill?: No Do you have trouble taking care of your child, family member or friend?: No Do you have trouble with day-to-day activities such as bathing, preparing meals, shopping, managing finances, etc.?: No Are you currently unemployed and looking for a job?: No Are you interested in more education?: No Please select the resources that you would like help with: None Currently or been in a relationship where the following occur: No concerns reported THRIVE Score: 0 AUDIT C Alcohol Use Questionnaire (AUDIT-C) 1. How often do you have a drink containing alcohol?: Monthly or less 2. How many drinks containing alcohol do you have on a typical day when you are drinking?: 1 or 2 3. How often do you have six or more drinks on one occasion?: Never Total Score: 1 JACQUELINE-7 AMB Questionnaire JACQUELINE-7 Date JACQUELINE - 7 assessed: 10/10/24 Feeling nervous, anxious, or on edge: 0 = Not at all Not being able to stop or control worryin = Not at all Worrying too much about different things: 0 = Not at all Trouble relaxin = Not at all Being so restless that it is hard to sit still: 0 = Not at all Becoming easily annoyed or irritable: 0 = Not at all Feeling afraid as if something awful might happen: 0 = Not at all Total JACQUELINE-7 score (0-4 normal; 5-9 mild; 10-14 moderate; 15-21 severe): 0 Source: Developed by Drs. Ayad Soriano, Maryuri Edwards, Rolo Mortaaya and colleagues, with an educational jose from [employer]. Physical exam (Primary Care) Vital Signs: Last Vital Signs Temp 97.3 F 02/23/25 12:56 Pulse 84 02/23/25 12:56 BP 140/78 H 02/23/25 12:56 Pulse Ox 99 02/23/25 12:56 Oxygen Delivery Method Room Air 02/23/25 12:56 BMI result Body Mass Index 40.7 Tobacco/Smoking Status: Tobacco use Status Tobacco use date assessed 02/23/25 02/23/25 13:03 Patient Tobacco Use Status Never used Tobacco 02/23/25 13:03 Tobacco use type 02/23/25 13:03 e-Cigarette/Vaping Use Never Used 02/23/25 13:03 PHQ-9: PHQ-9 Score PHQ-9: Total score 0 02/23/25 13:14 Depression Screening Interpretation: Negative Thrive Assessment: Date of Thrive Assessment Date Thrive assessed 10/10/24 02/23/25 13:03 Currently or been in a relationship where the following occur: No concerns reported Const General: alert; No acute distress Eyes Conjunctivae: conjunctivae normal Resp Auscultation: clear to auscultation bilaterally Cardio Rate: regular rate Rhythm: regular rhythm GI Inspection: Yes normal to inspection Extrem General: Yes normal to inspection and No edema Coding Level of Care Code Est Pt Level 4 (46894) Complex EM visit Add On G2211 Diagnoses Essential hypertension I10 Renal artery stenosis I70.1 Impaired glucose tolerance R73.02 Morbid obesity E66.01 Gastroesophageal reflux disease without esophagitis K21.9 Esophagitis presence: without esophagitis Fatty liver K76.0 Anemia D64.9 Obstructive sleep apnea G47.33 Otitis media, right H66.91 Assessment & Plan Assessment & Plan (1) Essential hypertension: Code(s): I10 - Essential (primary) hypertension Category: Medical Plan: Continue with blood pressure medication. Decrease salt intake and exercise patient follows up with Nephrology on clonidine 0.1 mg twice a day losartan 100 mg once a day Aldactazide 25/25 once a day (2) Renal artery stenosis: Comment: 60% stenosis on the left renal artery 2024 mild Code(s): I70.1 - Atherosclerosis of renal artery Category: Medical Plan: Continuing to monitor. Patient is followed up by Nephrology (3) Impaired glucose tolerance: Code(s): R73.02 - Impaired glucose tolerance (oral) Category: Medical Plan: Decrease the amount of carbohydrate intake, pasta, bread, rice and potatoes are all sugar and that is aside from all the sweet stuff, remember that fruits are good but they are Sweet also. (4) Morbid obesity: Code(s): E66.01 - Morbid (severe) obesity due to excess calories Category: Medical Plan: Diet and exercise (5) GERD (gastroesophageal reflux disease): Code(s): K21.9 - Gastro-esophageal reflux disease without esophagitis Category: Medical Qualifiers: Esophagitis presence: without esophagitis Qualified Code(s): K21.9 - Gastro-esophageal reflux disease without esophagitis Plan: Avoid the foods that causes that usually spicy foods, tomato products, juices, coffee, soda and foods that your sensitive to. After eating do not lie down, allow 3-4 hours before in lie down. And keep the head of bed above 30 degrees to avoid the acid from going up. (6) Fatty liver: Comment: November 2024 Code(s): K76.0 - Fatty (change of) liver, not elsewhere classified Category: Medical Plan: Low-fat diet and exercise (7) Anemia: Comment: ANEMia of Chronic Disease Code(s): D64.9 - Anemia, unspecified Category: Medical Plan: Continue to monitor (8) Obstructive sleep apnea: Code(s): G47.33 - Obstructive sleep apnea (adult) (pediatric) Category: Medical Plan: Continue to use the CPAP more than 4 hours a night and benefits from this. (9) Otitis media, right: Code(s): H66.91 - Otitis media, unspecified, right ear Category: Medical Plan History of Present Illness The patient is a 60-year-old male presenting for a follow-up visit. The patient has a history of obstructive sleep apnea, which is managed with CPAP therapy, although adherence is inconsistent, with usage approximately five times a week. He reports benefits from CPAP use, but acknowledges that inconsistent use affects his overall health, including cardiovascular health. The patient has gastroesophageal reflux disease (GERD) and is advised to follow a low-fat diet and exercise regimen to manage symptoms. He continues to monitor his condition, with no recent exacerbations reported. Impaired glucose tolerance is noted, with a recent hemoglobin A1c of 6.1, indicating a progression towards diabetes. The patient admits to consuming a high amount of sweets, which may contribute to elevated glucose levels. He is counseled on dietary modifications to prevent further progression to diabetes. The patient has a history of hypogonadism, hepatic steatosis, and hypertension. Hypertension management includes medications such as clonidine, losartan, and aldactazide, with follow-up by nephrology. Renal artery stenosis was identified with 60% stenosis on the right renal artery, but obesity and sleep apnea are considered primary contributors to hypertension. The patient was treated for impacted cerumen and otitis externa in February, with ear drops prescribed. He reports ongoing ear discomfort, and further treatment with antibiotics is planned if symptoms persist. Anemia was noted in February, but it is described as mild and longstanding. Routine blood work shows normal renal function, electrolytes, and cholesterol levels, with LDL cholesterol controlled at 108 mg/dL. Health Maintenance - Colon cancer screening with stool test (Cologuard) is due. - Advised on dietary modifications to manage impaired glucose tolerance and prevent diabetes progression. - Encouraged consistent CPAP use for obstructive sleep apnea management. Social History - Reports consuming a high amount of sweets, including cake and bread, contributing to elevated glucose levels. Review of Systems - Respiratory: Denies shortness of breath. - Cardiovascular: Denies chest pain. - Ear/Nose/Throat: Reports ear discomfort, denies sore throat. - Endocrine: Reports increased sugar intake. Physical Exam - Ear Examination: Painful on pressing and pulling the right ear - Cardiovascular Examination: Heart and lungs auscultated Results - Labs: Hemoglobin A1c at 6.1, indicating impaired glucose tolerance. - Labs: LDL cholesterol at 108 mg/dL, within control limits. - Labs: Normal renal function and electrolytes. - Imaging: Ultrasound showing hepatic steatosis. Plan The patient is advised to maintain consistent use of CPAP therapy to manage obstructive sleep apnea effectively, as inconsistent use may impact cardiovascular health. For gastroesophageal reflux disease, a low-fat diet and regular exercise are recommended to manage symptoms, with ongoing monitoring for any exacerbations. The patient is counseled on dietary modifications to address impaired glucose tolerance, with an emphasis on reducing sugar intake to prevent progression to diabetes. Hypertension management includes adherence to prescribed medications, including clonidine, losartan, and aldactazide, with follow-up care by nephrology to monitor renal artery stenosis and overall blood pressure control. For impacted cerumen and otitis externa, the patient is advised to continue using ear drops, with further antibiotic treatment planned if symptoms persist. Routine blood work will continue to monitor anemia, with current findings indicating mild and longstanding anemia. Patient was informed and verbally consented to the use of an ambient scribe for clinic note documentation during this visit. Discussion Notes During the visit, I discussed the importance of consistent CPAP use for managing obstructive sleep apnea and its impact on cardiovascular health. We reviewed dietary modifications to manage impaired glucose tolerance and prevent diabetes progression. I emphasized the need for adherence to hypertension medications and follow-up with nephrology to monitor renal artery stenosis. We also discussed the management of impacted cerumen and otitis externa, with a plan for further antibiotic treatment if symptoms persist. I advised on the importance of routine blood work to monitor anemia and other health parameters. Patient Instructions - Use CPAP machine consistently, aiming for at least five nights a week. - Follow a low-fat diet and engage in regular exercise to manage GERD symptoms. - Reduce sugar intake to manage glucose levels and prevent diabetes. - Take prescribed hypertension medications as directed and follow up with nephrology. - Continue using ear drops for ear discomfort and seek further treatment if symptoms persist. Medications: New amoxicillin-pot clavulanate 875-125 mg 1 tab PO BID 14 tabs 0RF H66.91 - Otitis media, unspecified, right ear Refilled losartan 100 mg PO DAILY 90 tabs 2RF
== END 2025-02-23 13:28 | disposition home or self-care (01) ==
LOC: HO.HMCH 12:53
PROVIDERS: PCP Internal Medicine; Visit Provider Internal Medicine
DX: I10 Essential (primary) hypertension (principal); I70.1 Atherosclerosis of renal artery; E66.01 Morbid (severe) obesity due to excess calories; Z68.41 Body mass index [BMI] 40.0-44.9, adult; R73.02 Impaired glucose tolerance (oral); K21.9 Gastro-esophageal reflux disease without esophagitis; K76.0 Fatty (change of) liver, not elsewhere classified; D64.9 Anemia, unspecified; G47.33 Obstructive sleep apnea (adult) (pediatric); H66.91 Otitis media, unspecified, right ear